=== PATIENT | female | born 1950 | race Caucasian/White ===

== ENCOUNTER 2017-10-02 18:40 | Emergency (ER) | payer MEDICARE, OTHER, SELFPAY ==
[2017-10-02 18:41] VITALS: BP 152/75; PULSE 67; RESP 15; TEMP 36.8; O2SAT 97; BMI 28.3
--- NOTE | 2017-10-02 19:59 | ED.DCSUM_ITS ---
- ER Visit Summary Date of Service: 10/02/17 Chief Complaint: [Laceration left index finger] History of Present Illness: The patient is a 67 F [presents to the emergency department with a laceration to her left index finger that occurred while trying to cut an onion prior to arrival in the emergency department. Patient is right-hand dominant. Patient is up-to-date on tetanus.] Physical Examination: [Left index finger-there is a 1.2 cm laceration along the lateral edge of the distal phalanx adjacent to the nail but does not seem to involve the nail. Patient neurovascularly intact. Normal sensation and cap refill.] Test Results: [None indicated] Emergency Department Course and Treatment: [Laceration repair-wound sterilely draped and prepped. Using 1% lidocaine total 6 cc used to perform a digital block. Patient had good anesthesia with this. Wound irrigated with saline and cleansed with Shur-Clens. Using 5-0 nylon a total of 3 single interrupted sutures placed with good wound edge approximation.] Treatment Plan: [Patient to follow-up in 10 days for suture removal] Disposition: [Discharged home in stable condition. Patient advised to return if increasing pain, redness, swelling, purulent drainage, or condition should worsen in any way.] Impression: [Laceration left index finger 1.2 cm-simple repair] This note was generated with [employer] dictation software. It may contain incorrect words, spelling, and punctuation that were not noted in review of the chart prior to signing ED Disposition - Plan for ED Patient: Chief Complaint: Laceration Referrals: Garrick Benson MD [Primary Care Provider] -
--- NOTE | 2017-10-02 19:59 | ED.DEP ---
ED Disposition - Plan for ED Patient: Chief Complaint: Laceration Instructions: ED Laceration Hand Referrals: Garirck Benson MD [Primary Care Provider] - 10 Day for suture removal
== END 2017-10-02 20:09 | disposition home or self-care (01) ==
LOC: ED 19:10
PROVIDERS: Emergency Provider Emergency Medicine; Family Provider Family Medicine; PCP Family Medicine
DX: S61.211A Laceration without foreign body of left index finger without damage to nail, initial encounter (principal); W26.0XXA Contact with knife, initial encounter; Y93.9 Activity, unspecified; Y92.9 Unspecified place or not applicable; Y99.9 Unspecified external cause status; E78.00 Pure hypercholesterolemia, unspecified; E11.9 Type 2 diabetes mellitus without complications; I10 Essential (primary) hypertension
CPT/HCPCS: 12001; 99284

== ENCOUNTER → 2017-12-26 10:52 | Outpatient (CLI) | payer MEDICARE, OTHER, SELFPAY ==
[2017-12-26 13:25] LABS: Hemoglobin A1c 8.3 % (4.2-6.3)
== END ==
PROVIDERS: Family Provider Family Medicine; PCP Family Medicine; Visit Provider Family Medicine
DX: E11.9 Type 2 diabetes mellitus without complications (principal)
CPT/HCPCS: 36415; 83036

== ENCOUNTER 2018-01-13 07:42 | Emergency (ER) | payer MEDICARE, OTHER, SELFPAY ==
[2018-01-13 07:43] VITALS: BP 138/82; PULSE 74; RESP 17; TEMP 36.8; O2SAT 96; BMI 28.3
--- NOTE | 2018-01-13 07:56 | RAD_ITS ---
STUDY: X-RAY - RIGHT FOOT CLINICAL: Female, 67 years old. Lateral pain and swelling TECHNIQUE: 3 view(s) of the foot. COMPARISON: Right ankle films, same date FINDINGS: Normal talus, calcaneus, and tarsal bones. Normal visualized subtalar, talonavicular, calcaneocuboid, tarsal and tarsometatarsal articulations. Normal metatarsi. Normal metatarsophalangeal joint of the great toe. Normal tibial and fibular sesamoid bones. Normal interphalangeal joint of the great toe. Normal phalanges of the great toe. Normal second through fifth metatarsophalangeal joints. Normal interphalangeal joints and phalanges of the lesser toes. There is lateral soft tissue swelling. The distal fibular fracture is not well seen on the foot films, better demonstrated on the ankle films. RAD/Foot min 3 Views IMPRESSION: Lateral soft tissue swelling. The known distal fibular fracture is better seen on the ankle films. Electronically Signed: Ramesh Stone DO at 8:32 EDT Tel , Service support ,
--- NOTE | 2018-01-13 07:56 | CT_ITS ---
STUDY: CT BRAIN WITHOUT CONTRAST REASON FOR EXAM: Female, 67 years old. Trauma, bump to the right posterior head RADIATION DOSAGE (If Supplied By Facility): CTDIvol = ( 44.99 ) mGy, DLP = ( 779.24 ) mGycm TECHNIQUE: Transaxial CT imaging of the brain was performed without administration of intravenous contrast material. Sagittal and coronal reconstructed images are provided and reviewed. Individualized dose optimization techniques were used for this CT. COMPARISON: None. FINDINGS: Normal soft tissue structures. Normal calvarium. Normal size ventricles and extra-axial spaces for the patient's age. Normal white matter tracts of the cerebral hemispheres. Normal basal ganglia and thalami. Normal brainstem. Normal cerebellum. There is no intracranial hemorrhage. There are no findings of an acute ischemic infarction. Normal visualized paranasal sinuses. CT/Brain/Head without Contrast IMPRESSION: Normal unenhanced CT scan of the brain. Electronically Signed: Ramesh Stone DO at 8:37 EDT Tel , Service support ,
--- NOTE | 2018-01-13 07:57 | ED.VISSUMM ---
- ER Visit Summary Date of Service: 01/13/18 Chief Complaint: Fall History of Present Illness: The patient is a 67 F presenting after fall. Patient was stepping down off a train and missed a step. She fell to the ground hitting her head. She has right ankle pain and swelling. She did not lose consciousness. She has had no dizziness or vomiting. She denies neck pain. She has pain in her right ankle with ambulation. Denies other complaints. Physical Examination: Vitals are stable. Patient is afebrile. Alert no acute distress. HEENT exam posterior scalp hematoma Neck is nontender Lungs are clear and equal bilaterally. Heart is regular rate and rhythm. Abdomen is soft nontender nondistended. Extremities right lateral ankle swelling and tenderness. Skin is warm and dry. No focal neurologic deficit. Remainder of exam is unremarkable. Emergency Department Course and Treatment: Ice pack was applied. Right ankle and foot x-ray shows nondisplaced distal fibular fracture. CT head shows no acute process. She was given a boot orthosis and crutches. She has a walker at home and declines a wheelchair. She has family at home to help her. Advised non weight bearing. Advised to ice and elevate. Advised to follow up with Dr Styles, orthopedics. Patient declines pain medications. Advised to return to the ED for worsening complaints. Disposition: Discharge home Impression: Right distal fibula fracture, closed head injury, s/p mechanical fall This note was generated with [employer] dictation software. It may contain incorrect words, spelling, and punctuation that were not noted in review of the chart prior to signing ED Disposition - Plan for ED Patient: Disposition: Home or Assisted Living Chief Complaint: Fall Instructions: ED Mechanical Fall, ED Fx Ankle Lateral Malleolus Referrals: Garrick Benson DO [Primary Care Provider] - Selvin Styles DO [STAFF PHYSICIAN] -
--- NOTE | 2018-01-13 08:11 | RAD_ITS ---
STUDY: X-RAY - RIGHT ANKLE REASON FOR EXAM: Female, 67 years old. Trauma, status post fall with pain TECHNIQUE: 3 view(s) of the ankle. COMPARISON: Right foot films, same date FINDINGS: There is a nondisplaced fracture of the distal fibula. The distal tibia is intact. Normal tibiotalar articulation and ankle mortise. Normal visualized talus and calcaneus. The visualized subtalar, talonavicular, calcaneocuboid and tarsal articulations are normal. There is lateral soft tissue swelling and a joint effusion. RAD/Ankle min 3 Views IMPRESSION: Nondisplaced distal fibular fracture. Electronically Signed: Ramesh Stone DO at 8:28 EDT Tel , Service support ,
--- NOTE | 2018-01-13 08:45 | ED.DEP ---
ED Disposition - Plan for ED Patient: Chief Complaint: Fall Instructions: ED Mechanical Fall, ED Fx Ankle Lateral Malleolus Referrals: Garrick Benson DO [Primary Care Provider] - Selvin Styles DO [STAFF PHYSICIAN] -
[2018-01-13 09:06] VITALS: BP 173/102; PULSE 70; RESP 18
== END 2018-01-13 09:07 | disposition home or self-care (01) ==
PROVIDERS: Emergency Provider Emergency Medicine; Family Provider Family Medicine; PCP Family Medicine
DX: S82.831A Other fracture of upper and lower end of right fibula, initial encounter for closed fracture (principal); S09.90XA Unspecified injury of head, initial encounter; W10.8XXA Fall (on) (from) other stairs and steps, initial encounter; Y93.9 Activity, unspecified; Y92.522 Railway station as the place of occurrence of the external cause; Y99.8 Other external cause status; E11.9 Type 2 diabetes mellitus without complications; I10 Essential (primary) hypertension; E78.00 Pure hypercholesterolemia, unspecified; F41.9 Anxiety disorder, unspecified; K58.9 Irritable bowel syndrome, unspecified
CPT/HCPCS: 70450; 73610; 73630; 99284

== ENCOUNTER → 2018-03-19 10:29 | Outpatient (CLI) | payer MEDICARE, OTHER, SELFPAY ==
[2018-03-19 11:43] LABS: Hemoglobin A1c 8.2 % (4.2-6.3)
[2018-03-19 11:51] LABS: ALB/GLOB Ratio 1.2 RATIO (0.9-2.4); AST(SGOT) 23 U/L (15-37); Alanine Aminotransfer ALT/SGPT 19 U/L (13-56); Albumin, Serum 4.1 g/dL (3.2-5.0); Alkaline Phosphatase 88 U/L (45-117); Anion Gap 10 (5-15); BUN 13 mg/dL (7-18); BUN/Creat Ratio 17.2 RATIO (10-20); Chloride 107 mmol/L (98-107); Cholesterol 171 mg/dL (200); Creatinine, Serum 0.76 mg/dL (0.55-1.02); EST Glomerular Filtration Rate 81 mL/min (>60); Est Glom Filt Rate - Afr Amer 98 mL/min (>60); Globulin 3.3 g/dL (2.2-4.2); Glucose 210 mg/dL (74-106); High Density Lipoprotein 51 mg/dL; Potassium 4.2 mmol/L (3.5-5.1); Protein, Total 7.4 g/dL (6.4-8.2); Sodium Level 145 mmol/L (136-145); Triglycerides 183 mg/dL; Very Low Density Lipoprotein 37 mg/dL (5-40)
== END ==
PROVIDERS: Family Provider Family Medicine; PCP Family Medicine; Visit Provider Family Medicine
DX: E78.5 Hyperlipidemia, unspecified (principal); E11.9 Type 2 diabetes mellitus without complications
CPT/HCPCS: 36415; 80053; 80061; 83036

== ENCOUNTER 2018-06-12 22:02 | Emergency (ER) | payer MEDICARE, OTHER, SELFPAY ==
[2018-06-12 22:03] VITALS: BP 108/64; PULSE 81; RESP 16; TEMP 37; O2SAT 98; BMI 28.3
--- NOTE | 2018-06-13 00:10 | RAD_ITS ---
STUDY: X-RAY CHEST REASON FOR EXAM: Female, 67 years old. Cough TECHNIQUE: 2 views COMPARISON: None. FINDINGS: The lungs are clear and expanded. There is no demonstrated pleural abnormality. Normal size heart. Normal mediastinum and anisha. Normal visualized pulmonary arteries. Normal visualized aortic arch and descending thoracic aorta. Normal visualized thoracic spine. Normal visualized ribs, clavicles, and shoulders. There is no demonstrated abnormality of the visualized soft tissue structures of the upper abdomen. RAD/Chest PA and Lateral IMPRESSION: Small 3 mm calcified granulomata in both lower lobes. No acute findings in the lungs Electronically Signed: Edu Obrien MD at 0:37 EDT Tel , Service support ,
[2018-06-13] MEDS: Ondansetron 4 MG/2 ML Vial IV (00:12)
[2018-06-13] MEDS: 0.9% Normal Saline 1,000 ML 150 ML IV (00:34)
[2018-06-13 00:46] LABS: Absolute Neutrophil Count 6.3 X10^3/uL (2.0-7.7); Basophil% 0.1 % (0-1); Hematocrit 37.7 % (37-47); Hemoglobin 12.4 g/dl (12.0-15.0); Lymphocyte # 0.86 X10^3/ul (4.0); Mean Corp Hgb Conc 32.9 g/gl (32-36); Mean Corpuscular Hgb 28.6 pg (27.0-32.0); Mean Corpuscular Volume 86.9 fL (81-99); Mean Platelet Vol. 9.6 fl (6.2-12.0); Monocyte% 8.8 % (0-10); Neutrophil # 6.26 X10^3/uL (2.7-7.7); POSITIVE COUNT NO; POSITIVE DIFFERENTIAL NO; POSITIVE MORPHOLOGY NO; Platelet Count 189 K/mm3 (150-450); RBC Distribution Width CV 13.4 % (11.6-14.6); RBC Distribution Width SD 41.7 fl (35.1-43.9); Red Blood Count 4.34 M/mm3 (4.2-5.4); White Blood Count 7.8 K/mm3 (4.4-11.0)
[2018-06-13 00:47] LABS: Absolute Lymphocyte Count 0.86 X10^3/ul (0.83-4.51); Monocyte# 0.69 X10^3/uL
[2018-06-13 00:54] LABS: Anion Gap 13 (5-15); BUN 20 mg/dL (7-18); BUN/Creat Ratio 22.5 RATIO (10-20); Calcium,Total 8.4 mg/dL (8.5-10.1); Chloride 102 mmol/L (98-107); Creatinine, Serum 0.89 mg/dL (0.55-1.02); EST Glomerular Filtration Rate 67 mL/min (>60); Est Glom Filt Rate - Afr Amer 81 mL/min (>60); Estimated Creatinine Clearance 50.74 ml/min; Glucose 235 mg/dL (74-106); Potassium 4.6 mmol/L (3.5-5.1); Sodium Level 135 mmol/L (136-145)
[2018-06-13] MEDS: Acetaminophen 325 MG Tablet 650 MG PO (01:20)
[2018-06-13] MEDS: Dicyclomine 10 MG Capsule 20 MG PO (01:20)
[2018-06-13 01:22] VITALS: BP 107/56; PULSE 79; RESP 17; O2SAT 93
--- NOTE | 2018-06-13 02:02 | ED.VISSUMM ---
- ER Visit Summary Date of Service: 06/13/18 Chief Complaint: Nausea and vomiting History of Present Illness: The patient is a 67 F who woke yesterday morning with congestion and sore throat. She did not really eat much all day. She was nauseated whenever she would smell food. She woke today with body aches, sedated fever and chills. She went to the [facility] clinic and was told she had a sinus infection. She was not given antibiotics. She reportedly had a rapid flu test that was negative. Tonight she states she did vomit up her toes that she had eaten at noon and there was some blood streaks noted. She denies diarrhea. Physical Examination: Vital signs are unremarkable. Patient is sitting upright in bed. She appears ill but not toxic. Head neck examination reveals TMs to be clear. She has mild posterior pharyngeal drainage. Heart is regular rate and rhythm. Lung sounds are clear. Abdomen is soft with minimal tenderness in the right lower quadrant. No guarding or rebound. Hypoactive bowel sounds are noted throughout. Test Results: Two-view chest x-ray shows small calcified granulomata at both lower lobes. No acute findings. CBC was normal white count but she does have a slight left shift with 80% neutrophils. Chemistry studies reveal a sodium of 135 and a bicarb of 20. Her glucose is 235. Emergency Department Course and Treatment: Patient is given IV fluids along with Zofran. On repeat evaluation she was complaining of mild headache along with some abdominal cramping. She was given a dose of Bentyl and Tylenol p.o. On repeat exam she still has mild headache. She is requesting to go home at this time. I discussed viral syndrome with her as I believe this is the cause of her current illness. She will be given Zofran for home and encouraged to increase fluids to maintain hydration. Treatment Plan: [] Disposition: Discharge Impression: Viral syndrome This note was generated with [employer] dictation software. It may contain incorrect words, spelling, and punctuation that were not noted in review of the chart prior to signing ED Disposition - Plan for ED Patient: Chief Complaint: Nausea/Vomiting Referrals: Garrick Benson, [Primary Care Provider] -
--- NOTE | 2018-06-13 02:04 | ED.DEP ---
ED Disposition - Plan for ED Patient: Disposition: Home or Assisted Living Chief Complaint: Nausea/Vomiting Instructions: ED Viral Syndrome Prescriptions: Ondansetron [Zofran Odt] 4 mg PO Q8H PRN PRN #10 tablet PRN Reason: Nausea Referrals: Garrick Benson DO [Primary Care Provider] - 5-7 Days
[2018-06-13] MEDS: Ondansetron ODT 4 MG Tablet PO (02:22)
[2018-06-13 02:23] VITALS: BP 96/44; PULSE 66; RESP 17; O2SAT 97
== END 2018-06-13 02:24 | disposition home or self-care (01) ==
PROVIDERS: Emergency Provider Emergency Medicine; Family Provider Family Medicine; PCP Family Medicine
DX: B34.9 Viral infection, unspecified (principal); R68.83 Chills (without fever); J02.9 Acute pharyngitis, unspecified; R05 Cough; R11.2 Nausea with vomiting, unspecified; R51 Headache; R09.81 Nasal congestion; R10.813 Right lower quadrant abdominal tenderness; E11.9 Type 2 diabetes mellitus without complications; I10 Essential (primary) hypertension; E78.00 Pure hypercholesterolemia, unspecified; K58.9 Irritable bowel syndrome, unspecified; Z79.82 Long term (current) use of aspirin; Z79.84 Long term (current) use of oral hypoglycemic drugs; Z79.899 Other long term (current) drug therapy
CPT/HCPCS: 71046; 80048; 85025; 96361; 96374; 99285; J7030; J7040; A4216; J2405

== ENCOUNTER → 2018-06-14 10:48 | Outpatient (CLI) | payer MEDICARE, OTHER, SELFPAY ==
[2018-06-14 11:20] LABS: Hemoglobin A1c 7.7 % (4.2-6.3)
== END ==
PROVIDERS: Family Provider Family Medicine; PCP Family Medicine; Referring Provider Family Medicine; Visit Provider Family Medicine
DX: E11.9 Type 2 diabetes mellitus without complications (principal)
CPT/HCPCS: 36415; 83036

== ENCOUNTER → 2018-12-05 11:41 | Outpatient (CLI) | payer MEDICARE, OTHER, SELFPAY ==
[2018-12-05 11:02] VITALS: BMI 27.8
[2018-12-05 13:33] LABS: Hemoglobin A1c 7.9 % (4.2-6.3)
== END ==
PROVIDERS: Family Provider Family Medicine; PCP Family Medicine; Visit Provider Family Medicine
DX: E11.9 Type 2 diabetes mellitus without complications (principal)
CPT/HCPCS: 36415; 83036

== ENCOUNTER → 2018-12-12 09:09 | Outpatient (CLI) | payer MEDICARE, OTHER, SELFPAY ==
[2018-12-05 11:02] VITALS: BMI 27.8
--- NOTE | 2018-12-12 09:11 | MRI_ITS ---
STUDY: MRI BRAIN WITH AND WITHOUT CONTRAST REASON FOR EXAM: Female, 68 years old. Tremor and falls TECHNIQUE: Standardized multiplanar fat and water weighted pulse sequences were obtained. 14 IV Dotarem was administered for the contrast portion of the examination. COMPARISON: CT 01/13/2018 FINDINGS: Normal size of the ventricles and extra-axial spaces for the patient's age. There are a limited number of small white matter hyperintensities, distributed throughout the deep white matter tracts of the cerebral hemispheres, consistent with mild chronic white matter ischemic changes. Normal bilateral basal ganglia. Normal thalami. There is no extra-axial fluid accumulation. Normal flow voids within the major intracranial circulation suggesting patency by spin echo criteria. Normal venous enhancement. There is no enhancing intra-axial or extra-axial abnormality. Normal sella turcica, pituitary gland, infundibular stalk, optic chiasm and hypothalamus. Normal tectal plate and pineal gland. Normal midbrain, barry and medulla. Normal cerebellum. Normal basal cisterns. Normal bilateral temporal bones. Normal bilateral internal auditory canals. No demonstrated orbital abnormality, within the constraints of a routine brain study. Normal visualized paranasal sinuses. Right mastoid sinus disease. Normal visualized soft tissue structures. Normal visualized upper cervical spine. MRI/Brain W/WO Contrast IMPRESSION: No evidence of infarct, hemorrhage, mass, or abnormal enhancement. Mild microangiopathic white matter disease. Electronically Signed: Brian Acosta MD at 11:08 EDT Tel , Service support ,
[2018-12-12 09:36] LABS: CREATININE FINGERSTICK 0.9 mg/dL (0.55-1.02); EGFR FINGERSTICK > 60.0000 mL/min (>60)
== END ==
PROVIDERS: Family Provider Family Medicine; PCP Family Medicine; Referring Provider Family Medicine; Visit Provider Family Medicine
DX: R25.1 Tremor, unspecified (principal); G96.9 Disorder of central nervous system, unspecified; Z01.812 Encounter for preprocedural laboratory examination
CPT/HCPCS: 70553; A9575

== ENCOUNTER → 2019-01-15 10:41 | Outpatient (CLI) | payer MEDICARE, OTHER, SELFPAY ==
[2019-01-09 13:49] VITALS: BMI 27.8
[2019-01-15 11:33] LABS: Erythrocyte Sedimentation Rate 3 mm/hr (0-30)
[2019-01-15 11:38] LABS: Absolute Neutrophil Count 2.3 X10^3/uL (2.0-7.7); Basophil# 0.01 X10^3/uL; Basophil% 0.3 % (0-1); Eosinophil# 0.12 X10^3/uL; Eosinophils% 3.1 % (0-5); Hemoglobin 14.7 g/dl (12.0-15.0); Lymphocyte % 31.5 % (19-41); Mean Corp Hgb Conc 33.4 g/gl (32-36); Mean Corpuscular Hgb 27.8 pg (27.0-32.0); Mean Corpuscular Volume 83.3 fL (81-99); Mean Platelet Vol. 9.8 fl (6.2-12.0); Monocyte# 0.22 X10^3/uL; Monocyte% 5.8 % (0-10); Neutrophil # 2.25 X10^3/uL (2.7-7.7); Platelet Count 194 K/mm3 (150-450); RBC Distribution Width CV 13.6 % (11.6-14.6); RBC Distribution Width SD 41.3 fl (35.1-43.9); Red Blood Count 5.28 M/mm3 (4.2-5.4); White Blood Count 3.8 K/mm3 (4.4-11.0)
[2019-01-15 11:40] LABS: POSITIVE COUNT NO; POSITIVE DIFFERENTIAL NO; POSITIVE MORPHOLOGY NO
[2019-01-15 11:59] LABS: Homocysteine 10.5 umol/L (3.2-10.7)
[2019-01-15 12:00] LABS: Vitamin B12 348 pg/mL (211-911)
[2019-01-15 12:36] LABS: ALB/GLOB Ratio 1.3 RATIO (0.9-2.4); AST(SGOT) 25 U/L (15-37); Alanine Aminotransfer ALT/SGPT 25 U/L (13-56); Albumin, Serum 4.1 g/dL (3.2-5.0); Alkaline Phosphatase 94 U/L (45-117); Anion Gap 10 (5-15); BUN 13 mg/dL (7-18); BUN/Creat Ratio 17.3 RATIO (10-20); Calcium,Total 8.7 mg/dL (8.5-10.1); Chloride 106 mmol/L (98-107); Creatinine, Serum 0.75 mg/dL (0.55-1.02); EST Glomerular Filtration Rate 81 mL/min (>60); Est Glom Filt Rate - Afr Amer 98 mL/min (>60); Globulin 3.2 g/dL (2.2-4.2); Glucose 231 mg/dL (74-106); Potassium 4.2 mmol/L (3.5-5.1); Protein, Total 7.3 g/dL (6.4-8.2); Rheumatoid Factor < 10.0 IU/mL (<15); Sodium Level 141 mmol/L (136-145); T4 Free Direct 1.11 ng/dL (0.76-1.46); T4 Total, Thyroxin 9.9 ug/dL (4.8-13.9); Thyroid Stim Hormone (TSH) 1.21 uIU/mL (0.358-3.74); Uric Acid 3.6 mg/dL (2.6-6.0)
[2019-01-21 11:54] LABS: ANTINUCLEAR ANTIBODIES DIRECT NEGATIVE
[2019-01-21 11:56] LABS: Methylmalonic Acid Bld 512
== END ==
PROVIDERS: Family Provider Family Medicine; PCP Family Medicine; Referring Provider Psychiatry & Neurology Neurology; Visit Provider Psychiatry & Neurology Neurology
DX: R41.3 Other amnesia (principal); R44.3 Hallucinations, unspecified; Z68.27 Body mass index [BMI] 27.0-27.9, adult
CPT/HCPCS: 36415; 80053; 82607; 82746; 83090; 83921; 84436; 84439; 84443; 84550; 85025; 85652; 86038; 86431

== ENCOUNTER 2019-04-11 20:26 | Emergency (ER) | payer MEDICARE, OTHER, SELFPAY ==
[2019-03-05 11:22] VITALS: BMI 27.8
[2019-04-11 20:27] VITALS: BP 146/68; PULSE 88; RESP 19; TEMP 36.6; O2SAT 98; BMI 28.3
--- NOTE | 2019-04-11 21:05 | ED.VIS.BACK ---
History of Present Illness Chief Complaint: Back Informant: Patient Onset: Days Context: Sudden Onset Injury: - - There is no history of lifting or trauma Timing: Continuous Quality: Dull, Aching Location: Lumbar, Buttock, Right Leg, Left Leg Current Severity: Mild Maximum Severity: Severe Worsened by: improves with: Movement, Ambulation, Bending, Lifting. worse with: Night time pain Relieved by: Nothing Associated Symptoms: Radiation to Right Leg, Radiation to Left Leg, - - There is no numbness, tingling, fever or chills, night sweats, weight loss or weight gain, bowel or bladder dysfunction, there is no saddle paresthesia or anesthesia. She denies foot drop. She has no steps. He prefers to sit versus standing Narrative: Patient is a 68-year-old woman who presents with central low back pain that started 1 week ago. She has no constitutional symptoms. She has no neurovascular symptoms. She denies bowel or bladder dysfunction. There are no steps at her house to determine if her knee sean going up or down steps. 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 (4) Type 2 diabetes mellitus Status: Chronic Past Medical History - Allergies and Home Meds Allergies/Adverse Reactions: Allergies No Known Allergies Allergy (Verified 04/11/19 20:28) Primary Care Physician: Garrick Benson DO [Primary Care Provider] - Prior records reviewed: Yes Surgical History: noncontributory Lives: Spouse/ Significant Other Smoking Status: Never smoker Alcohol: None Drugs: None Review of Systems General: Denies: Chills, Fever, Sweats Eyes: Denies: Visual changes - bilaterally, Diplopia ENT: Denies: Rhinorrhea, Sore throat Cardiovascular: Denies: Chest pain, Palpitations Respiratory: Denies: Dyspnea, Cough, Dyspnea on exertion Gastrointestinal: Denies: Abdominal pain, Nausea, Vomiting, Diarrhea, Melena, Hematochezia Genitourinary: Denies: Dysuria, Hematuria, Frequency Musculoskeletal: Reports: Back pain, Extremity Pain. Denies: Myalgias, Arthralgias, Neck pain, Swelling, -, - - He does report pain radiating anteriorly right and left lower extremity and posteriorly to the popliteal fossa bilaterally. Skin: Denies: Rash, Wounds Neurological: Denies: Headache, Weakness, Parasthesia, Numbness Endocrine: Denies: Polyuria, Polydipsia Hematologic: Denies: Easy bruising, Easy bleeding Allergy: Denies: Uticaria, Swelling of the mouth, Swelling of the tongue Physical Exam Vital Signs/Narrative: Vital Signs Temp Pulse Resp BP Pulse Ox 04/11/19 20:27 97.9 F 88 19 H 146/68 H 98 Inital Vital Signs reviewed: Yes General: Well nourished, Well developed Head: Normocephalic, Atraumatic Eyes: Perrl, EOMI ENT: Moist mucous membranes, No rhinorrhea Neck: Supple, Nontender Cardiovascular: Regular rate, Regular rhythm, No murmurs Respiratory: No distress, CTA bilaterally, Chest nontender Abdomen: Soft, Nontender, Nondistended, Normal bowel sounds, No masses. Negative for: Hepatomegaly, Splenomegaly Back: Normal Inspection, Nontender, Spinal tenderness, Negative SLR - Right, Negative SLR - Left. Negative for: Paraspinal Tenderness, CVA tenderness, Positive SLR - Right, Positive SLR - Left Extremeties: Nontender, No edema, Strong Pulses, Symmetric. Negative for: Tenderness, Edema Skin: Normal color, No rash, No Trauma. Negative for: Cyanosis, Diaphoresis, Jaundice Neuro: Alert, Oriented, Normal Strength, Normal Sensation, Normal DTR, Normal Gait, Normal Reflexes, Normal Cerebellar, - - Gait observed. There is no foot drop. She is able to walk on her heels and toes. She has normal sensation lateral, central and medial side of the right and left foot. She is able to perform a one leg squat right and left. Psychological: Normal affect Diagnostic/Tx/Re-eval X-Ray: LS SPine - Review x-ray was reviewed by me. Radiologist read no acute process. Agree. There may be evidence of abnormality of anterior plate L3. - Medical Decision Making He was established he was treated with 4 mg of morphine IV push. X-ray of the LS-spine was obtained. She was reevaluated at 2230. She reports improvement of her pain. She was told her x-ray is unremarkable. She was instructed to follow-up with her doctor. ED Disposition - Plan for ED Patient: Disposition: Home or Assisted Living Diagnosis: Bilateral low back pain without sciatica Instructions: BACK AND NECK PAIN, General Prescriptions: Hydrocodone Bitart/Apap 5-325 [[place] 5MG-325MG] 1 tab PO Q6H PRN PRN 3 Days #10 tab PRN Reason: Pain Prescription Printed Referrals: Garrick Benson DO [Primary Care Provider] - 3-5 Days
[2019-04-11] MEDS: Ondansetron 4 MG/2 ML Vial IV (21:12)
[2019-04-11] MEDS: Morphine 4 MG/ML Syringe IV (21:13)
--- NOTE | 2019-04-11 21:18 | RAD_ITS ---
STUDY: X-RAY - LUMBAR SPINE REASON FOR EXAM: Female, 68 years old. Trauma TECHNIQUE: 3 view(s) of the lumbar spine were obtained. COMPARISON: None FINDINGS: Normal lumbar lordosis. There is no substantial scoliosis. There is a normal alignment of the vertebrae. No evidence for acute fracture or subluxation. Probable old trauma to the anterior superior endplate of L3. Disc space heights are well-maintained although there is very mild multilevel endplate spurring. The soft tissue structures are unremarkable. RAD/Lumbar Spine 2 or 3 Views IMPRESSION: Mild spondylosis.. No evidence for acute fracture or subluxation. Probable old posttraumatic deformity of anterior superior endplate of L3 Electronically Signed: Rajiv Kaplan MD at 21:36 EDT , Service support ,
[2019-04-11 22:46] VITALS: BP 133/72; PULSE 81; RESP 16; O2SAT 99
== END 2019-04-11 22:48 | disposition home or self-care (01) ==
PROVIDERS: Emergency Provider Emergency Medicine; Family Provider Family Medicine; PCP Family Medicine
DX: M54.5 Low back pain (principal); E11.9 Type 2 diabetes mellitus without complications; I10 Essential (primary) hypertension; E78.5 Hyperlipidemia, unspecified; G96.9 Disorder of central nervous system, unspecified
CPT/HCPCS: 72100; 99282; J2405

== ENCOUNTER → 2019-06-05 11:28 | Outpatient (CLI) | payer MEDICARE, OTHER, SELFPAY ==
[2019-06-05 10:40] VITALS: BMI 27.3
--- NOTE | 2019-06-05 11:55 | EKG12_ITS ---
Test Reason : PRE OP Blood Pressure : / mmHG Vent. Rate : 057 BPM Atrial Rate : 057 BPM P-R Int : 148 ms QRS Dur : 090 ms QT Int : 454 ms P-R-T Axes : 046 090 077 degrees QTc Int : 441 ms Sinus bradycardia Rightward axis Borderline ECG Confirmed by PATEL ROLLINS, SEAN ([id number]), metropolitan editor TIM ALY ([id number] on 06/07/2019 11:02:43 AM Referred By: Garrick Benson Confirmed By:SEAN SWEENEY MD
[2019-06-05 13:35] LABS: ALB/GLOB Ratio 1.2 RATIO (0.9-2.4); AST(SGOT) 17 U/L (15-37); Alanine Aminotransfer ALT/SGPT 19 U/L (13-56); Alkaline Phosphatase 83 U/L (45-117); Anion Gap 8 (5-15); BUN 16 mg/dL (7-18); BUN/Creat Ratio 21.9 RATIO (10-20); Chloride 109 mmol/L (98-107); Cholesterol 143 mg/dL (200); Creatinine, Serum 0.73 mg/dL (0.55-1.02); EST Glomerular Filtration Rate 84 mL/min (>60); Est Glom Filt Rate - Afr Amer 102 mL/min (>60); Globulin 3.2 g/dL (2.2-4.2); Glucose 161 mg/dL (74-106); High Density Lipoprotein 47 mg/dL; Potassium 4.1 mmol/L (3.5-5.1); Protein, Total 7.2 g/dL (6.4-8.2); Sodium Level 143 mmol/L (136-145); Triglycerides 114 mg/dL; Very Low Density Lipoprotein 23 mg/dL (5-40)
== END ==
PROVIDERS: Family Provider Family Medicine; PCP Family Medicine; Referring Provider Family Medicine; Visit Provider Family Medicine
DX: E11.9 Type 2 diabetes mellitus without complications (principal); I10 Essential (primary) hypertension
CPT/HCPCS: 36415; 80053; 80061; 93005

== ENCOUNTER 2019-06-21 12:00 | Outpatient (RCR) | payer MEDICARE, OTHER, SELFPAY ==
[2019-04-17 14:03] VITALS: BMI 28.3
--- NOTE | 2019-04-30 12:05 | HP.PTEVAL ---
Patient's Visit Information ELISA HAN is a 68 year old F referred to Physical Therapy by Gerson Bourgeois NP-C with a diagnosis of LOW BACK PAIN. Date of Evaluation: 04/30/19 Physical Therapist: Melchor Morgan, PT, Cert MDT, OCS - Visit Plan Frequency: 2x /Week Duration: 4 Weeks Plan: PT INTERVENTIONS DLS -ABD/BACK (NEUTRAL POSTION) ,POSTURAL EX'S,MODALTIES - Subjective Findings: This 68 y/o female presents to physical therapy with LBP. Patient has back pain for 5 years. Patient recently 3weeks hockey cold and sitting on bleachers. Next day pain alot of pain . Pateint waited one week before seen ER [facility] x-rays did. Patient seen [facility] recommended PT. Patient pain is located right LB with radicular symptoms hamstrings. Aggravating sitting,standing ,walking ,bending ,lifting. Alleviating factors rest,heat. Parathesia/tingling right leg. Coughing/sneezing -. Bowel/bladder good. Sleeping okay at night. But has has sleep apnea. Patient pain affects housework tasks and ADL's. Symptoms afffects QOL. Patient does have h/o falling. SOCIAL: . VOCATION: retired - Pain Bilateral Back Pain Intensity (Out of 10): 5 Pain Intensity Range: 10 Right Lower Extremity Pain Intensity (Out of 10): 5 Pain Intensity Range: 10 Comment: hamstrings - Objective POSTURE: mild thoracic kyphosis. GAIT: reciprocal pattern. NEURO: denies parathesia/tingling ,reflexes L3-4,L4-5,L5-S1 2/3. SYMMTICAL: align. PALPATION: unremarkable. MMT: quads/hams/hip flexion 4/5,ankle 4/5. LUMBAR ROM: flexion min,extension min loss,side glides min min loss. FLEXABLITY: hams min tight - Special Tests L/S Slump test left side: Negative L/S Slump test right side: Negative L/S Left Straight Leg Raise: Negative L/S Right Straight Leg Raise: Negative Lumbar Standing: Flexion - Mechanical Response: No effect Lumbar Standing: Flexion - Symptoms During Testing: Increases Lumbar Standing: Flexion - Symptoms After Testing: Worse Lumbar Standing: Extension - Mechanical Response: No effect Lumbar Standing: Extension - Symptoms During Testing: Decreases Lumbar Standing: Extension - Symptoms After Testing: No effect Lumbar Standing: Right Side Glides - Mechanical Response: No effect Lumbar Standing: Right Side Scuddy - Symptoms During Testing: No effect Lumbar Standing: Right Side Scuddy - Symptoms After Testing: No effect Lumbar Standing: Left Side Scuddy - Mechanical Response: No effect Lumbar Standing: Left Side Scuddy - Symptoms During Testing: No effect Lumbar Standing: Left Side Scuddy - Symptoms After Testing: No effect Lumbar Lying: Flexion - Mechanical Response: No effect Lumbar Lying: Flexion - Symptoms During Testing: Increases Lumbar Lying: Flexion - Symptoms After Testing: Worse Lumbar Lying: Extension - Mechanical Response: No effect Lumbar Lying: Extension - Symptoms During Testing: Increases Lumbar Lying: Extension - Symptoms After Testing: Worse - Goals Goal 1:: Patient to be Independant HEP. Goal Time Frame: 4-6 Weeks Goal 2:: Patient to improve posture for ADLS' Goal Time Frame: 4-6 Weeks Goal 3:: Decrease lumbar pain with radicular symptoms by 50% or greater to improve function Goal Time Frame: 4-6 Weeks Goal 4:: Patient to improve lumbar ROM for function of recovery Goal Time Frame: 4-6 Weeks Goal 5:: Patient to improve owestry dash score by 5 points > to improve QOL. Goal Time Frame: 4-6 Weeks - Rehabilitation Potential Physical Therapy Diagnosis: This patient has lumbar pain with radicular with possible disc involment with with pain with movement tests,sitting,bending impairs ADL'S and housework tasks thus benifit from skilled PT Rehabilitation Potential: Good - Anticipated Interventions Patient/Client Instruction: Educate patient on: Condition, Plan of Care For the Purpose of:: To decrease pain, To increase ROM, To improve muscle performance and motor function, To improve ability to perform ADL's, To increase tolerance to activity/condition/position, To improve performance and independence with ADL's, To improve ability of physical actions for home/community/work/leisure, To improve health of tissue, To decrease soft tissue restriction, To increase flexibility/ROM, To improve ability to perform tasks related to life management Therapeutic Exercise to Include: Strength training, Postural training, Flexibilty training, Dynamic Lumbar Stabilization For the Purpose of:: To decrease pain, To increase ROM, To improve muscle performance and motor function, To improve ability to perform ADL's, To increase tolerance to activity/condition/position, To improve ability of physical actions for home/community/work/leisure, To improve health of tissue, To decrease soft tissue restriction, To increase flexibility/ROM, To improve ability to perform tasks related to life management TENS: Yes IF ES: Yes Cryotherapy (ice pack, ice massage): Yes Thermo therapy (hot pack): Yes Ultrasound (thermal/non thermal): Yes For the Purpose of:: To decrease pain, To increase ROM, To improve health of tissue, To decrease soft tissue restriction Thank you for the opportunity to evaluate your patient. For Medicare and Medicare HMO plans, please review the plan of care and approve it. It will need to be FAXED BACK to us at [phone] for Medicare purposes. For Medicare only, by signing this I certify the plan of care. Please let me know if there are questions or concerns regarding this plan of care. Physician Signature: Date:
--- NOTE | 2019-06-06 15:25 | HP.PTREVAL ---
Gerson Bourgeois, GERALDINE-C, It has been my pleasure to treat ELISA HAN over the last 9 visits for LOW BACK PAIN. Please see the progress note below for an update on the physical therapy plan of care! Subjective: Doing better ,resume ex on home . Last couple treatment is hlping pain. Able to do ADL'S Objective/Function: POSTURE: mild foward posture ,mild kyphosis. GAIT: normal valencia. NEURO: intact. MMT: quads/hams 4/5 ,hip flexion 4-/5. LUMBAR ROM: flexion min loss ,extension min loss,side glides min loss Plan Plan: CONT WITH POC 2X/WEEK 2 WKS PT INTERVENTIONS DLS -ABD/BACK (NEUTRAL POSTION) ,POSTURAL EX'S,MODALTIES Goals Goal 1:: Patient to be Independant HEP. Goal Time Frame: 4-6 Weeks Goal Progress: Progressing Goal 2:: Patient to improve posture for ADLS' Goal Time Frame: 4-6 Weeks Goal Progress: Goal Met Goal 3:: Decrease lumbar pain with radicular symptoms by 60% or greater to improve function Goal Time Frame: 4-6 Weeks Goal Progress: Progressing Goal 4:: Patient to improve lumbar ROM for function of recovery Goal Time Frame: 4-6 Weeks Goal Progress: Progressing Goal 5:: Patient to improve owestry dash score by 5 points > to improve QOL. Goal Time Frame: 4-6 Weeks Goal Progress: Progressing Anticipated Interventions Patient/Client Instruction: Educate patient on: Condition, Plan of Care For the Purpose of:: To decrease pain, To increase ROM, To improve muscle performance and motor function, To improve ability to perform ADL's, To increase tolerance to activity/condition/position, To improve performance and independence with ADL's, To improve ability of physical actions for home/community/work/leisure, To improve health of tissue, To decrease soft tissue restriction, To increase flexibility/ROM, To improve ability to perform tasks related to life management Therapeutic Exercise to Include: Strength training, Postural training, Flexibilty training, Dynamic Lumbar Stabilization For the Purpose of:: To decrease pain, To increase ROM, To improve muscle performance and motor function, To improve ability to perform ADL's, To increase tolerance to activity/condition/position, To improve ability of physical actions for home/community/work/leisure, To improve health of tissue, To decrease soft tissue restriction, To increase flexibility/ROM, To improve ability to perform tasks related to life management TENS: Yes IF ES: Yes Cryotherapy (ice pack, ice massage): Yes Thermo therapy (hot pack): Yes Ultrasound (thermal/non thermal): Yes For the Purpose of:: To decrease pain, To increase ROM, To improve health of tissue, To decrease soft tissue restriction Please do not hesitate to contact me at [phone] by phone or if you have questions or concerns regarding this new plan of care! Sincerely, Melchor Morgan, PT, Cert MDT, OCS
--- NOTE | 2019-06-21 12:26 | HP.PTDCSUM ---
HP - PT D/C Summary It has been my pleasure to treat ELISA HAN under orders from Gerson Bourgeois NP-C, for the diagnosis of LOW BACK PAIN for a total of 13 visit(s). Discharge Date: 06/21/19 Please see the following information for a summary of their discharge status. - Subjective Subjective: Doing good..Able tpo do all adls' aand function at home - Pain Bilateral Back Pain Intensity (Out of 10): 1 Right Lower Extremity Pain Intensity (Out of 10): 0 - Overall Improvement % Improvement: 85 - Objective Objective/Function: Pt cont's to improve w/US use. Pain minimal today - Goals Goal 1:: Patient to be Independant HEP. Goal Progress: Goal Met Goal 2:: Patient to improve posture for ADLS' Goal Progress: Goal Met Goal 3:: Decrease lumbar pain with radicular symptoms by 60% or greater to improve function Goal Progress: Goal Met Goal 4:: Patient to improve lumbar ROM for function of recovery Goal Progress: Goal Met Goal 5:: Patient to improve owestry dash score by 5 points > to improve QOL. Goal Progress: Goal Met - Plan Plan: D/C TO HEP - D/C Information Discharge Comments: HEP ..MET GOALS If there are questions or concerns regarding this patient's physical therapy, please feel free to call me at [phone]. Thank you for the referral of this patient. Sincerely, Melchor Morgan, PT, Cert MDT, OCS
== END 2019-06-21 19:00 | disposition home or self-care (01) ==
LOC: PT 12:00
PROVIDERS: Family Provider Family Medicine; PCP Family Medicine; Referring Provider Nurse Practitioner Family; Visit Provider Nurse Practitioner Family
DX: M54.5 Low back pain (principal)
CPT/HCPCS: 97035; 97110; 97162; 97530

== ENCOUNTER → 2020-03-17 10:58 | Outpatient (CLI) | payer MEDICARE, OTHER, SELFPAY ==
[2020-03-17 10:40] VITALS: BMI 27.3
[2020-03-17 12:38] LABS: Anion Gap 4 (5-15); BUN 13 mg/dL (7-18); BUN/Creat Ratio 17.7 RATIO (10-20); Calcium,Total 8.7 mg/dL (8.5-10.1); Chloride 105 mmol/L (98-107); Cholesterol 148 mg/dL (200); Creatinine, Serum 0.73 mg/dL (0.55-1.02); EST Glomerular Filtration Rate 83 mL/min (>60); Est Glom Filt Rate - Afr Amer 101 mL/min (>60); Glucose 250 mg/dL (74-106); High Density Lipoprotein 47 mg/dL; Potassium 4.2 mmol/L (3.5-5.1); Sodium Level 137 mmol/L (136-145); Triglycerides 185 mg/dL; Very Low Density Lipoprotein 37 mg/dL (5-40)
[2020-03-17 12:41] LABS: Hemoglobin A1c 9.4 % (3.8-5.6)
== END ==
PROVIDERS: PCP Family Medicine; Referring Provider Family Medicine; Visit Provider Family Medicine
DX: E11.9 Type 2 diabetes mellitus without complications (principal); I10 Essential (primary) hypertension
CPT/HCPCS: 36415; 80048; 80061; 83036

== ENCOUNTER → 2020-03-18 10:28 | Outpatient (CLI) | payer MEDICARE, OTHER, SELFPAY ==
[2020-03-17 10:40] VITALS: BMI 27.3
== END ==
PROVIDERS: PCP Family Medicine; Referring Provider Family Medicine; Visit Provider Family Medicine
DX: R19.7 Diarrhea, unspecified (principal)
CPT/HCPCS: 87506

== ENCOUNTER → 2020-09-01 11:18 | Outpatient (CLI) | payer MEDICARE, OTHER, SELFPAY ==
[2020-04-21 09:30] VITALS: BMI 27.3
[2020-09-01 12:50] LABS: Magnesium 1.9 mg/dL (1.6-2.6); T4 Free Direct 1.13 ng/dL (0.76-1.46); Thyroid Stim Hormone (TSH) 0.75 uIU/mL (0.358-3.74)
== END ==
PROVIDERS: PCP Family Medicine; Referring Provider Family Medicine; Visit Provider Family Medicine
DX: G25.0 Essential tremor (principal)
CPT/HCPCS: 36415; 83735; 84439; 84443

== ENCOUNTER → 2020-09-16 12:42 | Outpatient (CLI) | payer MEDICARE, OTHER, SELFPAY ==
[2020-04-21 09:30] VITALS: BMI 27.3
--- NOTE | 2020-09-16 18:17 | SP.MBSS_ITS ---
Modified Barium Swallow - Patient Information Study Date: 09/16/20 Study Time: 12:45 Direct Billable Minutes: 80 Total Minutes procedure & reportin Diagnosis: Dysphagia (R13.10) Referring Physician: Garrick Benson Reason for Referral: The patient is a 70 year old female referred for a modified barium swallow (MBS) study to objectively assess the patients oropharyngeal swallow function under fluoroscopy secondary to reported intermittent coughing (2-3x per month) following ingestion of either solids or liquids (no specific correlation) with reported persistent difficulties with swallow onset associated with an non- specific movement type disorder (she states that her mild tremors were associated with a medication side effect years prior, which has remained consistent). Medical History: Hypertension, hyperlipemia, fibula fracture, irritable bowel syndrome, anxiety, type II diabetes mellitus - Penetration-Aspiration Scale Penetration-Aspiration Scale: OBJECTIVE ASSESSMENT OF SWALLOW FUNCTION (QUANTITATIVE ? PER TRIAL): PENETRATION / ASPIRATION SCALE ([place]): 1 = does not enter airway 2 = enters airway/above vocal folds/ejected 3 = enters airway/above vocal folds/not ejected 4 = enters airway/contacts vocal folds/ejected 5 = enters airway/contacts vocal folds/not ejected 6 = enters airway/below vocal folds/ejected 7 = enters airway/below vocal folds/not ejected despite effort 8 = enters airway/below vocal folds/no effort PENETRATION / ASPIRATION SCALE (SCORE): Thin liquid - 5 mL tsp.: 1 Thin liquids via cup (trial - 1): 1 Thin liquids via cup (trial - 2): 1 Thin liquids via cup (trial - 3): 1 Thin liquids via straw (trial -1): 1 Thin liquids via straw (trial -2): 1 Thin liquids via straw (trial -3): 1 Pudding via spoon: 1 Solid textures: 1 Thin liquids via straw (chin tuck - 1): 1 Thin liquids via straw (chin tuck - 2): 1 Thin liquids via straw (chin tuck - 3): 1 - Oral Phase Labial Seal: No Labial Escape Tongue Control During Bolus Hold: Posterior escape of greater than half of bolus Bolus Preparation/Mastication: Timely and efficient chewing and mashing Bolus Transport/Lingual Motion: Repetitive/disorganized tongue motion Oral Residue: Trace residue lining oral structures - Pharyngeal Phase Initiation of Pharyngeal Swallow: Bolus head in pyriforms Soft Palate Elevation: No bolus between soft palate and pharyngeal wall Laryngeal Elevation: Partial superior movement thyroid cart/partial apprx aryt- epig petiole Anterior Hyoid Excursion: Complete anterior movement Epiglottic Movement: Complete inversion Laryngeal Vestibule Closure at Height of Swallow: Complete; no air/contrast in laryngeal vestibule Pharyngeal Stripping Wave: Present - complete Pharyngoesophageal Segment Opening: Complete distension and complete duration; no obstruction of flow Tongue Base Retraction: Trace column of contrast between tongue base & post. pharyngeal wall Pharyngeal Residue: Collection of residue within or on pharyngeal structures - Diagnosis/Impression Diagnosis: Dysphagia (R13.11) Impression: The patient presents with mild oral dysphagia (DSRS: 2) with no penetration or aspiration noted. Her swallow profile was marked by abnormal oral transitional phase movements, with fine discoordinated lingual movements (tremor / fasciculation) with inconsistent oral phase swallow onset delay (2-3 seconds in length) in addition to rather consistent premature posterior bolus loss to the valleculae prior to swallow onset, which does have the potential to further complicate pharyngeal phase synchrony. Her oral preparatory phase and pharyngeal phase appeared unremarkable otherwise. Her deficits appeared to be managed successfully with reduction in bolus rate / volume adjustments, with little benefit noted with execution of the chin tuck posture. - Recommendations Comment: DIET TEXTURE RECOMMENDATIONS: regular textured (IDDSI: 7), thin liquid diet (IDDSI: 0) diet RECOMMENDED COMPENSATORY STRATEGIES: reduced bolus volume / rate of ingestion, consider alternating textures / temperatures etc. to facilitate more timely swallow onset timing, seated upright at 90 degrees during PO intake, remain upright for 30-60 minutes post meal (GERD precaution). Recommend Repeat Modified Barium Swallow: No Need for Skilled Speech Therapy Services: No Education Completed: 1. Described result of evaluation., 2. Pt understands evaluation & agrees with goals and treatment plan. - Status Active ST Patient: Not Active
== END ==
PROVIDERS: PCP Family Medicine; Referring Provider Family Medicine; Visit Provider Family Medicine
DX: R13.10 Dysphagia, unspecified (principal)
CPT/HCPCS: 74230; 92611

== ENCOUNTER → 2020-11-24 11:00 | Outpatient (CLI) | payer MEDICARE, OTHER, SELFPAY ==
[2020-04-21 09:30] VITALS: BMI 27.3
--- NOTE | 2020-11-24 11:04 | RAD_ITS ---
EXAM: XR LUMBOSACRAL SPINE, 2 OR 3 VIEWS CLINICAL INDICATION: 2 weeks of back pain after falling TECHNIQUE: Frontal and lateral views of the lumbar spine and sacrum. This report was created using [employer] report [employer] technology. COMPARISON: None. FINDINGS: VERTEBRAE: Diffuse osteopenia. Normal variant limbus vertebral body of L3. No compression fracture. DISC SPACES: Slight disc space narrowing at L4-L5. GASTROINTESTINAL TRACT: Unremarkable as visualized. Included bowel gas pattern is non-obstructive. RAD/Lumbar Spine 2 or 3 Views IMPRESSION: No acute findings in the lumbar spine. Electronically Signed: Nick Sellers MD ([place]) at 16:53 EDT , Service support ,
--- NOTE | 2020-11-24 11:05 | RAD_ITS ---
EXAM: XR SACRUM AND COCCYX, 2 OR MORE VIEWS CLINICAL INDICATION: 2 weeks of back pain after falling TECHNIQUE: Frontal and lateral views of the sacrum and coccyx. This report was created using [employer] report [employer] technology. COMPARISON: None. FINDINGS: SACRUM/COCCYX: Unremarkable. No displaced fracture. No destructive or sclerotic lesions. Note that overlapping bowel shadows may however obscure fine detail in the frontal view. Sacroiliac joints are unremarkable. SOFT TISSUES: Unremarkable. No soft tissue swelling or gas. RAD/Sacrum-Coccyx min 2 Views IMPRESSION: Unremarkable sacro-coccygeal spine. Electronically Signed: Nick Sellers MD ([place]) at 16:52 EDT , Service support ,
== END ==
PROVIDERS: PCP Family Medicine; Visit Provider Nurse Practitioner Family
DX: M53.3 Sacrococcygeal disorders, not elsewhere classified (principal); M54.5 Low back pain; W19.XXXA Unspecified fall, initial encounter
CPT/HCPCS: 72100; 72220

== ENCOUNTER 2020-11-30 12:00 | Emergency (ER) | payer MEDICARE, OTHER, SELFPAY ==
[2020-04-21 09:30] VITALS: BMI 27.3
[2020-11-30 12:02] VITALS: BP 144/75; PULSE 102; RESP 14; TEMP 36.3; O2SAT 94; BMI 27.1
--- NOTE | 2020-11-30 13:59 | ED.RN ---
RN SENT BLOODWORK DOWN BEFORE DOWNTIME STARTED. UA SENT AT 1355.
[2020-11-30 14:01] LABS: Mucous, Urine 0 SEEN /hpf (<or=2+); Red Blood Cells-Urine 0 SEEN /hpf (0-5)
[2020-11-30 14:03] LABS: Color, Urine Yellow (Yellow); Glucose, Dipstick 1000 mg/dl (Normal); Ketone-Dipstick 15 mg/dl (Negative); Leukocyte Esterase-Dipstick 25 /ul (Negative); Nitrite-Dipstick Negative (Negative); Occult Blood-Urine 10 /ul (Negative); Protein-Dipstick 15 mg/dl (Negative); Urine Bilirubin Dipstick Negative (Negative); Urine Clarity Sl. Cloudy (Clear); Urine Urobilinogen Normal (Normal)
[2020-11-30 14:03] LABS: Absolute Neutrophil Count 4.5 X10^3/uL (2.0-7.7); Basophil# 0.03 X10^3/uL; Basophil% 0.5 % (0-1); Eosinophil# 0.04 X10^3/uL; Eosinophils% 0.6 % (0-5); Hematocrit 47.4 % (37-47); Hemoglobin 15.6 g/dL (12.0-15.0); Lymphocyte % 20.5 % (19-41); Mean Corp Hgb Conc 32.9 g/dL (32-36); Mean Corpuscular Hgb 28.9 pg (27.0-32.0); Mean Corpuscular Volume 87.8 fL (81-99); Mean Platelet Vol. 9.9 fl (6.2-12.0); Monocyte% 7.9 % (0-10); NRBC Flagged by Analyzer 0 % (0-5); Neutrophil # 4.46 X10^3/uL (2.7-7.7); Neutrophil % 70.2 % (47-70); Platelet Count 230 K/mm3 (150-450); RBC Distribution Width CV 12.5 % (11.6-14.6); RBC Distribution Width SD 39.8 fl (35.1-43.9); White Blood Count 6.4 K/mm3 (4.4-11.0)
[2020-11-30 14:06] LABS: International Normalized Ratio 1.1; Partial Thromboplast Time 24.1 Seconds (24.1-36.2); Prothrombin Time (Protime)PT. 13.6 SECONDS (11.7-14.9)
[2020-11-30 14:12] LABS: ALB/GLOB Ratio 1.3 RATIO (0.9-2.4); AST(SGOT) 9 U/L (15-37); Alanine Aminotransfer ALT/SGPT 14 U/L (13-56); Albumin, Serum 4.3 g/dL (3.2-5.0); Alkaline Phosphatase 95 U/L (45-117); Anion Gap 6 (5-15); BUN 21 mg/dL (7-18); BUN/Creat Ratio 21.7 RATIO (10-20); Calcium,Total 9.5 mg/dL (8.5-10.1); Chloride 102 mmol/L (98-107); Creatinine, Serum 0.97 mg/dL (0.55-1.02); EST Glomerular Filtration Rate 61 mL/min (>60); Est Glom Filt Rate - Afr Amer 73 mL/min (>60); Estimated Creatinine Clearance 44.64 ml/min; Globulin 3.3 g/dL (2.2-4.2); Glucose 340 mg/dL (74-106); Potassium 3.9 mmol/L (3.5-5.1); Protein, Total 7.6 g/dL (6.4-8.2); Sodium Level 135 mmol/L (136-145)
[2020-11-30 14:17] LABS: Bacteria 4+ /hpf (None Seen); Hyaline Cast 5-10 SEEN /lpf (0-5); Renal Epithelial Cells 0-5 SEEN /hpf (0-5); Squamous Epithelial Cells - UA 0-5 SEEN /hpf (5-10); Transitional Epithelial - Ur 0-5 SEEN /hpf (0-5); White Blood Cells 0-5 SEEN /hpf (0-5)
--- NOTE | 2020-11-30 14:42 | CT_ITS ---
STUDY: CT ABDOMEN AND PELVIS WITH CONTRAST REASON FOR EXAM: Female, 70 years old. lower abdominal pain RADIATION DOSAGE (If Supplied By Facility): CTDIvol = ( 11.56 ) mGy, DLP = ( 654.56 ) mGycm TECHNIQUE: Transaxial images were obtained from the dome of the diaphragm to the symphysis pubis without oral contrast. IV 100mL Isovue-300 was administered. Sagittal and coronal images were reconstructed. Individualized dose optimization techniques were used for this CT. COMPARISON: None. FINDINGS: Minor interstitial thickening at both lung bases slightly more pronounced on the left.. The visualized portions of the heart are within normal limits. Liver is fatty infiltrated without mass or bile duct dilatation.. Normal gallbladder and extrahepatic biliary system. Normal spleen. Normal pancreas. Normal bilateral adrenal glands. Normal right kidney. Normal left kidney. Normal visualized stomach. Mild nonspecific ileus. No evidence for small bowel obstruction There is diffusely a haustral appearance to the transverse descending and rectosigmoid colon which may be consistent with inflammatory bowel disease without appreciable inflammatory stranding in the fat at this time... No evidence for acute appendicitis. Minor atherosclerotic changes of the aorta without evidence for aneurysm. Normal inferior vena cava. Normal retroperitoneum. Normal urinary bladder. Uterus not visualized consistent with prior hysterectomy Normal abdominal wall. Lumbar spine demonstrates mild spondylosis. CT/Abdomen/Pelvis W IV Cont ONLY IMPRESSION: Mild nonspecific ileus. Findings which may be consistent with nonspecific inflammatory colitis without appreciable inflammatory stranding in the fat at this time. Status post hysterectomy Electronically Signed: Rajiv Kaplan MD at 16:16 EDT , Service support ,
[2020-11-30 16:00] VITALS: BP 140/77; PULSE 87; RESP 16; O2SAT 99
--- NOTE | 2020-11-30 16:24 | ED.DCSUM_ITS ---
History of Present Illness Chief Complaint: GI Bleed Informant: Patient, Family Narrative: 7-year-old female presents for the evaluation of bright red rectal bleeding. Patient tells me that she had diarrhea throughout the night. This morning she was having bright red blood per the rectum. She states she was having to go fairly frequently. She states this is never happened to her before. She notes no rectal discomfort. She states that her right ovary seems to be hurting her and was having some mild discomfort in the upper quadrants. No fevers. Last colonoscopies about 5 years ago. She tells me she was diagnosed with irritable bowel. She has never had colitis before. - Past Medical History (1) Essential tremor Status: Chronic (2) Hyperlipemia Status: Chronic (3) Hypertension Status: Chronic (4) JOSHUA (obstructive sleep apnea) Status: Chronic Comment: Patient feels much better on her CPAP sleeping better and having more energy through the day. (5) Type 2 diabetes mellitus Status: Chronic Past Medical History - Allergies and Home Meds Allergies/Adverse Reactions: Allergies No Known Allergies Allergy (Verified 11/30/20 12:01) Primary Care Physician: Garrick Benson DO [Primary Care Provider] - Surgical History: noncontributory Lives: Spouse/ Significant Other Smoking Status: Never smoker Drugs: None Review of Systems General: Denies: Chills, Fever, Sweats Eyes: Denies: Visual changes - bilaterally, Diplopia ENT: Denies: Rhinorrhea, Sore throat Cardiovascular: Denies: Chest pain, Palpitations Respiratory: Denies: Dyspnea, Cough, Dyspnea on exertion Gastrointestinal: Reports: Abdominal pain, Diarrhea, Hematochezia. Denies: Nausea, Vomiting, Melena Genitourinary: Denies: Dysuria, Hematuria, Frequency Musculoskeletal: Denies: Back pain, Extremity Pain Skin: Denies: Rash, Wounds Neurological: Denies: Headache, Weakness, Numbness Physical Exam Vital Signs/Narrative: Vital Signs Pulse Resp BP Pulse Ox 11/30/20 16:00 87 16 140/77 H 99 Inital Vital Signs reviewed: Yes General: Well nourished, Well developed, No Acute Distress Head: Normocephalic, Atraumatic Eyes: Perrl, EOMI ENT: Moist mucous membranes, No rhinorrhea Neck: Supple, Nontender Cardiovascular: Regular rate, Regular rhythm, No murmurs Respiratory: No distress, CTA bilaterally, Chest nontender Abdomen: Soft, Nontender, Nondistended, Normal bowel sounds Rectal: - - There is no blood or stool on digital rectal exam. No palpable masses. Back: Nontender, Normal Inspection Extremities: Nontender, No edema Skin: Normal color, No rash Neurological: Alert, Oriented x3, Cranial nerves II-XII grossly intact, Normal Strength, Normal Sensation Psychological: Normal affect, Normal Mood Diagnostic/Tx/Re-eval Clinical Impression(s) from Imaging Studies Abdomen/Pelvis CT 11/30/20 14:42 IMPRESSION: Mild nonspecific ileus. Findings which may be consistent with nonspecific inflammatory colitis without appreciable inflammatory stranding in the fat at this time. Status post hysterectomy Electronically Signed: Rajiv Kaplan MD at 16:16 EDT , Service support , Laboratory Last Values WBC 6.4 K/mm3 (4.4-11.0) 11/30/20 12:30 RBC 5.40 M/mm3 (4.2-5.4) 11/30/20 12:30 Hgb 15.6 g/dL (12.0-15.0) H 11/30/20 12:30 Hct 47.4 % (37-47) H 11/30/20 12:30 MCV 87.8 fL (81-99) 11/30/20 12:30 MCH 28.9 pg (27.0-32.0) 11/30/20 12:30 MCHC 32.9 g/dL (32-36) 11/30/20 12:30 RDW Std Deviation 39.8 fl (35.1-43.9) 11/30/20 12:30 RDW Coeff of Vero 12.5 % (11.6-14.6) 11/30/20 12:30 Plt Count 230 K/mm3 (150-450) 11/30/20 12:30 MPV 9.9 fl (6.2-12.0) 11/30/20 12:30 Immature Gran % (Auto) 0.300 % (0.0-0.9) 11/30/20 12:30 Neut % (Auto) 70.2 % (47-70) H 11/30/20 12:30 Lymph % (Auto) 20.5 % (19-41) 11/30/20 12:30 [place] % (Auto) 7.9 % (0-10) 11/30/20 12:30 Eos % (Auto) 0.6 % (0-5) 11/30/20 12:30 Baso % (Auto) 0.5 % (0-1) 11/30/20 12:30 Absolute Neuts (auto) 4.5 X10^3/uL (2.0-7.7) 11/30/20 12:30 Absolute Lymphs (auto) 1.30 X10^3/uL (0.83-4.51) 11/30/20 12:30 Nucleated RBC % 0 % (0-5) 11/30/20 12:30 PT 13.6 SECONDS (11.7-14.9) 11/30/20 12:30 INR 1.1 11/30/20 12:30 APTT 24.1 Seconds (24.1-36.2) 11/30/20 12:30 Sodium 135 mmol/L (136-145) L 11/30/20 12:30 Potassium 3.9 mmol/L (3.5-5.1) 11/30/20 12:30 Chloride 102 mmol/L (98-107) 11/30/20 12:30 Carbon Dioxide 27.0 mmol/L (21.0-32.0) 11/30/20 12:30 Anion Gap 6 (5-15) 11/30/20 12:30 BUN 21 mg/dL (7-18) H 11/30/20 12:30 Creatinine 0.97 mg/dL (0.55-1.02) 11/30/20 12:30 Estim Creat Clear Calc 44.64 ml/min 11/30/20 12:30 Est GFR (MDRD) Af Amer 73 mL/min (>60) 11/30/20 12:30 Est GFR (MDRD) Non-Af 61 mL/min (>60) 11/30/20 12:30 BUN/Creatinine Ratio 21.7 RATIO (10-20) H 11/30/20 12:30 Glucose 340 mg/dL (74-106) H 11/30/20 12:30 Calcium 9.5 mg/dL (8.5-10.1) 11/30/20 12:30 Total Bilirubin 0.80 mg/dL (0.20-1.00) 11/30/20 12:30 AST 9 U/L (15-37) L 11/30/20 12:30 ALT 14 U/L (13-56) 11/30/20 12:30 Alkaline Phosphatase 95 U/L (45-117) 11/30/20 12:30 Total Protein 7.6 g/dL (6.4-8.2) 11/30/20 12:30 Albumin 4.3 g/dL (3.2-5.0) 11/30/20 12:30 Globulin 3.3 g/dL (2.2-4.2) 11/30/20 12:30 Albumin/Globulin Ratio 1.3 RATIO (0.9-2.4) 11/30/20 12:30 Urine Color Yellow (Yellow) 11/30/20 13:46 Urine Clarity Sl. Cloudy (Clear) 11/30/20 13:46 Urine pH 5.0 (5.0 - 8.0) 11/30/20 13:46 Ur Specific [place] 1.020 (1.002-1.030) 11/30/20 13:46 Urine Protein 15 mg/dl (Negative) H 11/30/20 13:46 Urine Glucose (UA) 1000 mg/dl (Normal) H 11/30/20 13:46 Urine Ketones 15 mg/dl (Negative) H 11/30/20 13:46 Urine Occult Blood 10 /ul (Negative) H 11/30/20 13:46 Urine Nitrite Negative (Negative) 11/30/20 13:46 Urine Bilirubin Negative mg/dL (Negative) 11/30/20 13:46 Urine Urobilinogen Normal mg/dl (Normal) 11/30/20 13:46 Ur Leukocyte Esterase 25 /ul (Negative) H 11/30/20 13:46 Urine RBC 0 SEEN /hpf (0-5) 11/30/20 13:46 Urine WBC 0-5 SEEN /hpf (0-5) 11/30/20 13:46 Ur Squamous Epith Cells 0-5 SEEN /hpf (5-10) 11/30/20 13:46 Ur Transition Epith Cell 0-5 SEEN /hpf (0-5) 11/30/20 13:46 Ur Renal Epithelial Cell 0-5 SEEN /hpf (0-5) 11/30/20 13:46 Urine Bacteria 4+ /hpf (None Seen) 11/30/20 13:46 Hyaline Casts 5-10 SEEN /lpf (0-5) 11/30/20 13:46 Urine Mucus 0 SEEN /hpf (<or=2+) 11/30/20 13:46 - Medical Decision Making Patient is hemodynamically stable. Her hemoglobin is normal. White count is normal. There is no blood on digital rectal exam but the patient states that she did have a small amount of bleeding while here in the department. CT the abdomen pelvis was performed which demonstrates possible early colitis. We will go ahead and place her on antibiotics have her follow-up with her primary care physician as already scheduled on Monday. Should she worsen in the interim return here. Advised that she most likely will need a follow-up colonoscopy. ED Disposition - Plan for ED Patient: Disposition: Home or Assisted Living Diagnosis: Lower GI bleeding, Colitis Instructions: ED Lower GI Bleeding (Stable) Prescriptions: Amox/Clavulanate Tablet [Augmentin Tablet] 875 mg PO Q12H #14 tab Prescription Printed Referrals: Garrick Benson DO [Primary Care Provider] - Keep [facility] appointment
== END 2020-11-30 16:39 | disposition home or self-care (01) ==
PROVIDERS: Emergency Provider Emergency Medicine; PCP Family Medicine
DX: K52.9 Noninfective gastroenteritis and colitis, unspecified (principal); E11.9 Type 2 diabetes mellitus without complications; I10 Essential (primary) hypertension; E78.5 Hyperlipidemia, unspecified; G47.33 Obstructive sleep apnea (adult) (pediatric); G25.0 Essential tremor
CPT/HCPCS: 74177; 80053; 81001; 85025; 85610; 85730; 99282; Q9967; A4216

== ENCOUNTER → 2020-12-02 10:43 | Outpatient (CLI) | payer MEDICARE, OTHER, SELFPAY ==
[2020-12-02 10:43] VITALS: BMI 27.3
[2020-12-02 12:37] LABS: T4 Free Direct 1.26 ng/dL (0.76-1.46); Thyroid Stim Hormone (TSH) 1.62 uIU/mL (0.358-3.74)
== END ==
PROVIDERS: PCP Family Medicine; Visit Provider Family Medicine
DX: G25.0 Essential tremor (principal)
CPT/HCPCS: 36415; 84439; 84443

== ENCOUNTER → 2020-12-10 07:54 | Outpatient (CLI) | payer MEDICARE, OTHER, SELFPAY ==
[2020-12-03 10:14] VITALS: BMI 27.3
--- NOTE | 2020-12-10 07:57 | MRI_ITS ---
STUDY: MRI BRAIN WITH AND WITHOUT CONTRAST REASON FOR EXAM: Female, 70 years old. change in mental status TECHNIQUE: Standardized multiplanar fat and water weighted pulse sequences were obtained. 14ml IV Dotarem was administered for the contrast portion of the examination. COMPARISON: None. FINDINGS: Normal size of the ventricles and extra-axial spaces for the patient''s age. There are multiple white matter hyperintensities, distributed throughout the deep white matter tracts of the cerebral hemispheres, consistent with moderate chronic white matter ischemic changes. Normal bilateral basal ganglia. Normal thalami. There is no extra-axial fluid accumulation. Normal flow voids within the major intracranial circulation suggesting patency by spin echo criteria. Normal venous enhancement. There is no enhancing intra-axial or extra-axial abnormality. Normal sella turcica, pituitary gland, infundibular stalk, optic chiasm and hypothalamus. Normal tectal plate and pineal gland. Normal midbrain, barry and medulla. Normal cerebellum. Normal basal cisterns. Normal bilateral temporal bones. Normal bilateral internal auditory canals. No demonstrated orbital abnormality, within the constraints of a routine brain study. Normal visualized paranasal sinuses. Normal calvarium and skull base. Normal visualized soft tissue structures. Normal visualized upper cervical spine. MRI/Brain W/WO Contrast IMPRESSION: Involutional changes of the brain, as described above. Electronically Signed: Brice Bhatt MD at 16:22 EDT Tel , Service support ,
== END ==
PROVIDERS: PCP Family Medicine; Referring Provider Family Medicine; Visit Provider Family Medicine
DX: R41.82 Altered mental status, unspecified (principal)
CPT/HCPCS: 70553; A9575

== ENCOUNTER 2021-01-05 01:05 | Inpatient (IN) | payer MEDICARE, OTHER, SELFPAY ==
[2021-01-05] VITALS (39 sets, daily range): BP systolic 86–138; BP diastolic 40–82; PULSE 75–119; RESP 15–26; TEMP 35.5–37.8; O2SAT 94–100; BMI 23.3; BMI 25.8
--- NOTE | 2021-01-05 01:10 | EKG12_ITS ---
Test Reason : STROKE Blood Pressure : / mmHG Vent. Rate : 112 BPM Atrial Rate : 112 BPM P-R Int : 160 ms QRS Dur : 092 ms QT Int : 358 ms P-R-T Axes : 067 161 027 degrees QTc Int : 488 ms Sinus tachycardia Left posterior fascicular block Poor R wave progression Abnormal ECG Confirmed by PATEL ROLLINS, SEAN ([id number]), writer editor SANFORD RODRIGUEZ ([id number]) on 01/06/2021 9:01:08 AM Referred By: EMMIE ROLLINS Confirmed By:SEAN SWEENEY MD
--- NOTE | 2021-01-05 01:10 | CT_ITS ---
We are attempting to reach an attending provider to discuss findings. An addendum with communication details will be sent when the communication is complete. STUDY: CT HEAD STROKE PROTOCOL W/O CONTRAST INJECTION REASON FOR EXAM: Female, 70 years old. Neuro deficit, acute, stroke suspected TECHNIQUE: Transaxial CT imaging of the brain was performed without administration of intravenous contrast material. Individualized dose optimization techniques were used for this CT. COMPARISON: 01/13/2018. FINDINGS: Normal soft tissue structures. Normal calvarium. There is mild cerebral atrophy with widening of the extra-axial spaces and ventricular dilatation. There are areas of decreased attenuation within the white matter tracts of the supratentorial brain, consistent with microvascular disease changes. Normal basal ganglia and thalami. Normal brainstem. Normal cerebellum. There is no intracranial hemorrhage. There are no findings of an acute ischemic infarction. Normal visualized paranasal sinuses. CT/STROKE Brain/Head without Cont IMPRESSION: Chronic changes as described. No acute intracranial hemorrhage or space-occupying lesion. Electronically Signed: Rosy Wolfe MD at 1:27 EDT , Service support ,
--- NOTE | 2021-01-05 01:19 | CT_ITS ---
We are attempting to reach an attending provider to discuss findings. An addendum with communication details will be sent when the communication is complete. STUDY: CTA HEAD AND NECK WITH CONTRAST REASON FOR EXAM: Female, 70 years old. stroke RADIATION DOSAGE (If Supplied By Facility): CTDIvol = ( 13.10 ) mGy, DLP = ( 633.25 ) mGycm TECHNIQUE: CT angiography was performed with a multi-detector CT scanner. Data acquisition was obtained from the skull base through the vertex following intravenous administration of IV 100mL Isovue-370. MIP images were reconstructed from the axial data set. Post-processing of the angiographic images was performed, with multiplanar reformation and 3D reconstruction. Individualized dose optimization techniques were used for this CT. COMPARISON: No relevant priors. FINDINGS: Normal bilateral petrous carotid arteries. Normal right cavernous carotid artery with a normal supraclinoid bifurcation. Normal left cavernous carotid artery with a normal supraclinoid bifurcation. Normal right A1 segments of the anterior cerebral artery. Normal left A1 segments of the anterior cerebral artery. There is bulbous appearance at the anterior communicating artery seen on image 76, series 601 and image 96, series 2, cannot exclude a small aneurysmal dilatation at this level. This area measures 0.3 x 0.3 cm. Normal bilateral A2 segments of the anterior cerebral arteries. Normal right M1 and M2 segments of the middle cerebral arteries, with a normal M1 bifurcation. Normal left M1 and M2 segments of the middle cerebral arteries, with a normal M1 bifurcation. Normal right posterior communicating artery (PCOM). Normal left posterior communicating artery (PCOM). Normal bilateral vertebral arteries. Normal basilar artery with a normal basilar bifurcation. The visualized bilateral superior cerebellar (SCA) arteries are normal. Normal bilateral P1, P2 and visualized P3 segments of the posterior cerebral arteries. There is no demonstrated aneurysm of the [place]. There is no demonstrated abnormality of the visualized brain. AORTIC ARCH: Normal visualized aortic arch. Normal origins of the brachiocephalic, left common carotid, and left subclavian arteries. RIGHT CAROTID ARTERIES: Normal right common carotid artery (CCA). Normal right common carotid bulb. Normal origin of the right internal carotid (ICA) artery without a hemodynamically significant stenosis. Normal visualized cervical portion of the right internal carotid artery. Normal origin of the right external carotid artery (ECA). LEFT CAROTID ARTERIES: Normal left common carotid artery (CCA). Normal left common carotid bulb. Normal origin of the left internal carotid (ICA) artery without a hemodynamically significant stenosis. Normal visualized cervical portion of the left internal carotid artery. Normal origin of the left external carotid artery (ECA). VERTEBRAL ARTERIES: Normal bilateral vertebral arteries. CT/CTA Head AND Neck W/ Contrast IMPRESSION: Cannot exclude minimal aneurysmal dilatation involving the anterior communicating artery or distal aspect of the left A1 segment. Otherwise negative CTA Head and neck with contrast with no evidence of significant significant stenosis or occlusion. Electronically Signed: Rosy Wolfe MD at 1:53 EDT , Service support ,
[2021-01-05 01:44] LABS: Absolute Lymphocyte Count 3.84 X10^3/uL (0.83-4.51); Absolute Neutrophil Count 17.7 X10^3/uL (2.0-7.7); Basophil# 0.05 X10^3/uL; Basophil% 0.2 % (0-1); Eosinophil# 0.08 X10^3/uL; Eosinophils% 0.3 % (0-5); Hematocrit 46.5 % (37-47); Hemoglobin 14.1 g/dL (12.0-15.0); Lymphocyte # 3.84 X10^3/ul (0.83-4.51); Lymphocyte % 15.2 % (19-41); Mean Corp Hgb Conc 30.3 g/dL (32-36); Mean Corpuscular Hgb 29.2 pg (27.0-32.0); Mean Corpuscular Volume 96.3 fL (81-99); Mean Platelet Vol. 9.9 fl (6.2-12.0); Monocyte# 2.24 X10^3/uL; Monocyte% 8.9 % (0-10); NRBC Flagged by Analyzer 0 % (0-5); Neutrophil # 17.73 X10^3/uL (2.7-7.7); Neutrophil % 70.4 % (47-70); POSITIVE DIFFERENTIAL YES; POSITIVE MORPHOLOGY YES; Platelet Count 419 K/mm3 (150-450); RBC Distribution Width CV 13.6 % (11.6-14.6); RBC Distribution Width SD 48.1 fl (35.1-43.9); Red Blood Count 4.83 M/mm3 (4.2-5.4); White Blood Count 25.2 K/mm3 (4.4-11.0)
[2021-01-05 01:54] LABS: International Normalized Ratio 1.6; Partial Thromboplast Time 23.8 Seconds (24.1-36.2); Prothrombin Time (Protime)PT. 18.2 SECONDS (11.7-14.9)
[2021-01-05 02:02] LABS: Differential Indicated SCAN CRITERIA MET
[2021-01-05 02:11] LABS: Anion Gap 32 (5-15); BUN 28 mg/dL (7-18); BUN/Creat Ratio 18.5 RATIO (10-20); Calcium,Total 8.7 mg/dL (8.5-10.1); Chloride 103 mmol/L (98-107); Creatinine, Serum 1.51 mg/dL (0.55-1.02); EST Glomerular Filtration Rate 36 mL/min (>60); Est Glom Filt Rate - Afr Amer 44 mL/min (>60); Estimated Creatinine Clearance 32.45 ml/min; Glucose 410 mg/dL (74-106); Potassium 4.6 mmol/L (3.5-5.1); Sodium Level 141 mmol/L (136-145)
[2021-01-05] MEDS: 0.9% Normal Saline 1,000 ML 999 ML IV (02:20)
[2021-01-05] MEDS: Sodium Bicarbonate 8.4% 50 ML Syringe 100 MEQ IV (02:22)
--- NOTE | 2021-01-05 02:26 | RAD_ITS ---
STUDY: X-RAY CHEST REASON FOR EXAM: Female, 70 years old. Neuro deficit, acute, stroke suspected TECHNIQUE: Single AP portable view of the chest. COMPARISON: None. FINDINGS: The lungs are clear and expanded. There is no demonstrated pleural abnormality. Normal size heart. Normal mediastinum and anisha. Normal visualized pulmonary arteries. Normal visualized aortic arch and descending thoracic aorta. There is demineralization of the osseous structures. Normal visualized ribs, clavicles, and shoulders. There is no demonstrated abnormality of the visualized soft tissue structures of the upper abdomen. RAD/Chest 1 View IMPRESSION: No acute cardiopulmonary disease. Electronically Signed: Rosy Wolfe MD at 3:11 EDT , Service support ,
--- NOTE | 2021-01-05 02:26 | ED.RN ---
verbal order received from Dr Adame to discontinue NIH's
--- NOTE | 2021-01-05 02:29 | EDS_ITS ---
HPI History of Present Illness Chief Complaint: Neuro S/Sx Onset/Context/Timing Onset: Yesterday Context: Gradual Onset Timing: Continuous Current Severity: Moderate Maximum Severity: Severe Narrative Narrative: The patient is a 70-year-old female with medical history significant for diabetes, tremor, sleep apnea, and hypertension who presents to the emergency department with change in mental status. Apparently, the patient has been complaining of just not feeling well for the past 2 days. states that she really had no appetite. She was verbal and alert at about 7 PM and he laid her down for bed. He states that at about 1230, he tried to wake her up and she was not responding. He states that she was doing a lot of abnormal breathing and just did not seem to understand where she was. On arrival, the stroke team was activated, but the patient's last normal was 6 hours ago. She was not a TPA candidate. [facility] Medical History Anxiety Fracture, fibula Hyperlipemia Hypertension IBS (irritable bowel syndrome) Type 2 diabetes mellitus Home Medications aspirin 81 mg chewable tablet 81 mg PO QDAY 12/26/17 [History Last Taken 01/12/18] calcium carb,cit ER 600 mg-vit D3 12.5 mcg (500 unit) tablet,ext.rel 1 tab PO DAILY 12/26/17 [History Last Taken 01/12/18] dulaglutide 3 mg/0.5 mL subcutaneous pen injector 3 mg SC QWEEK #2 ml 11/24/20 [Rx Last Taken Unknown] blood sugar diagnostic #100 each 12/02/20 [Rx Last Taken Unknown] blood-glucose meter #1 each 12/02/20 [Rx Last Taken Unknown] escitalopram oxalate 20 mg tablet 20 mg PO DAILY #90 tab 12/02/20 [Rx Last Taken Unknown] lisinopril 5 mg tablet 5 mg PO QDAY #90 tab 12/02/20 [Rx Last Taken Unknown] metformin 500 mg tablet 1,000 mg PO BID #360 tab 12/02/20 [Rx Last Taken Unkno wn] simvastatin 20 mg tablet 20 mg PO DAILY #90 tab 12/02/20 [Rx Last Taken Unknown] dapagliflozin 10 mg tablet 10 mg PO DAILY #30 tablet 12/22/20 [Rx Last Taken Unknown] Allergy/AdvReac Type Severity Reaction Status Date / Time No Known Allergies Allergy Verified 12/02/20 10:05 Family History Mother Myocardial infarction, Onset Age: 76 Father Myocardial infarction, Onset Age: 57 Brother Myocardial infarction Cancer lung Sister Cancer cervical Surgical History History of appendectomy History of hernia repair History of partial hysterectomy History of prolapse of bladder History of tubal ligation Hx of bilateral cataract extraction Social History Smoking Status: Never smoker alcohol intake: never substance use type: does not use what type of physical activity do you participate in: none ROS ROS ED Review of Systems ROS Unobtainable: due to encephalopathy EXAM Physical Exam Const Vital Signs: 01/05/21 01:06 01/05/21 01:10 01/05/21 01:11 Temperature 96 F L 96.1 F L Temperature Source Temporal Temporal Pulse Rate 116 H 109 H Respiratory Rate 26 H 22 H Blood Pressure 138/74 H 112/50 L Blood Pressure Mean 95 70 Pulse Ox 94 94 100 Oxygen Delivery Method Room Air Nasal Cannula Venturi Mask Oxygen Flow Rate (L/min) 2 2 01/05/21 01:35 01/05/21 01:40 01/05/21 02:06 Temperature Temperature Source Pulse Rate 109 H 110 H 112 H Respiratory Rate 21 H 21 H 21 H Blood Pressure 112/50 L 137/62 H 121/68 H Blood Pressure Mean 70 87 85 Pulse Ox 100 100 98 Oxygen Delivery Method Nasal Cannula Nasal Cannula Nasal Cannula Oxygen Flow Rate (L/min) 2 2 2 01/05/21 02:10 01/05/21 02:28 Temperature 97.5 F L Temperature Source Temporal Pulse Rate 112 H 119 H Respiratory Rate 23 H 20 H Blood Pressure 121/68 H 121/68 H Blood Pressure Mean 85 85 Pulse Ox 98 100 Oxygen Delivery Method Nasal Cannula Nasal Cannula Oxygen Flow Rate (L/min) 2 2 Positive well nourished and obese Nutritional Appearance: obese HEENT Reports dry mucous membranes Negative for trauma or tenderness Mouth ED: Yes dry mucous membranes Mouth: dry mucous membranes Eyes PERRL and EOMs intact bilaterally Neck no lymphadenopathy, supple and no JVD Chest Wall inspection of chest normal and palpation of chest normal Resp normal respiratory effort and clear to auscultation bilaterally Effort and Inspection: Negative for pain with movement Cardio regular rate, regular rhythm and no murmurs GI normal to inspection, nondistended, normoactive bowel sounds Back/Spine no CVA tenderness Extremity normal to inspection Neuro Sensorium / Orientation: lethargic Motor Exam: general weakness Psych Mood & Affect: tearful Skin no rashes or lesions noted MDM MDM MDM Narrative Medical decision making narrative: Patient presents with change in mental status. On arrival, she is disoriented but will answer to name. She has weakness of all 4 extremities and would not follow any other commands. Stroke team was activated. Noncontrast head CT and CTA are both unremarkable. This does seem to be more of a global process rather than an acute stroke. Labs do show marked leukocytosis. The patient also has evidence of mild acute kidney injury and significantly elevated anion gap. I do suspect that she is in DKA. Blood gas was obtained. It does demonstrate rather significant acidosis with a pH of 6.98. The patient does have a CO2 of 16. She was tachypneic and maintaining her airway. I did not feel that intubation was necessary due to the risk of worsening her acidosis. Patient was given 2 A of bicarb. She was started on insulin drip. With her significant encephalopathy, she will be admitted to the ICU. Impression 1. DKA 2. Acute encephalopathy 3. Leukocytosis 4. Acute kidney injury Lab Data Attestation: I reviewed the patient's lab results. Labs: Laboratory Results - last 24 hr 01/05/21 01/05/21 01/05/21 01:30 01:30 01:30 WBC 25.2 H RBC 4.83 Hgb 14.1 Hct 46.5 MCV 96.3 MCH 29.2 MCHC 30.3 L RDW Std Deviation 48.1 H RDW Coeff of Vero 13.6 Plt Count 419 MPV 9.9 Immature Gran % (Auto) 5.000 H Neut % (Auto) 70.4 H Lymph % (Auto) 15.2 L [place] % (Auto) 8.9 Eos % (Auto) 0.3 Baso % (Auto) 0.2 Absolute Neuts (auto) 17.7 H Absolute Lymphs (auto) 3.84 Nucleated RBC % 0 Diff Path Review January foll PT 18.2 H INR 1.6 APTT 23.8 L Sodium 141 Potassium 4.6 Chloride 103 Carbon Dioxide 6.0 L* Anion Gap 32 H BUN 28 H Creatinine 1.51 H Estim Creat Clear Calc 32.45 Est GFR (MDRD) Af Amer 44 L Est GFR (MDRD) Non-Af 36 L BUN/Creatinine Ratio 18.5 Glucose 410 H Calcium 8.7 Troponin I < 0.015 Radiography Chest X-Ray - ED: 1 View, Read by ED Physician, Read by Radiologist, Heart, Lungs, Mediastinum, Bony Structures and No Acute Disease Diagnostic Testing: Radiology Impression Brain CT 01/05/21 01:10 IMPRESSION: Chronic changes as described. No acute intracranial hemorrhage or space-occupying lesion. Electronically Signed: Rosy Wolfe MD at 1:27 EDT , Service support , ADDENDUM: 01/05/21 0135 IMPRESSION: Chronic changes as described. No acute intracranial hemorrhage or space-occupying lesion. N.B. : The above information has been verbally conveyed by Rosy Wolfe MD to Selvin Adame MD, on 01/05/2021 01:29:00 (ET). Electronically Signed: Rosy Wolfe MD at 1:27 EDT , Service support , Head/Neck CTA 01/05/21 01:19 IMPRESSION: Cannot exclude minimal aneurysmal dilatation involving the anterior communicating artery or distal aspect of the left A1 segment. Otherwise negative CTA Head and neck with contrast with no evidence of significant significant stenosis or occlusion. Electronically Signed: Rosy Wolfe MD at 1:53 EDT , Service support , ADDENDUM: 01/05/21 0204 IMPRESSION: Cannot exclude minimal aneurysmal dilatation involving the anterior communicating artery or distal aspect of the left A1 segment. Otherwise negative CTA Head and neck with contrast with no evidence of significant significant stenosis or occlusion. N.B. : The above information has been verbally conveyed by Rosy Wolfe MD to Selvin Adame MD, on 01/05/2021 01:57:46 (ET). Electronically Signed: Rosy Wolfe MD at 1:53 EDT , Service support , EKG Initial EKG: Attestation: I personally reviewed and interpreted this EKG as follows: Interpretation: No Acute Injury Pattern, Sinus Tachycardia and Non- Specific ST Changes Prior EKG tracings: available for review Prior: Unchanged Critical Care Time Critical Care Time: Yes Critical care time (excluding procedures): 30-74 minutes, Including time spent:, Discussing w/Patient &/or Family/Aviation Maintenance Instructor, Discussing w/Consultants, Arranging Admission or Transfer and Performing Direct Patient Care at Bedside Discharge Plan Triage Chief Complaint: Neuro S/Sx ED Provider: Selvin Adame Dx/Rx/DC Orders Prescriptions: No Action aspirin 81 mg tablet,chewable 81 mg PO QDAY RF: 0 calcium carb,cit ER 600 mg calcium-vit D3 500 unit tablet,ext.release 600 mg calcium- 500 unit tablet extended release 1 tab PO DAILY RF: 0 lisinopril 5 mg tablet 5 mg PO QDAY Qty: 90 RF: 2 metformin 500 mg tablet 1,000 mg PO BID Qty: 360 RF: 3 simvastatin 20 mg tablet 20 mg PO DAILY Qty: 90 RF: 2 escitalopram oxalate 20 mg tablet 20 mg PO DAILY Qty: 90 RF: 1 Trulicity 3 mg/0.5 mL pen injector 3 mg SC QWEEK Qty: 2 RF: 3 Farxiga 10 mg tablet 10 mg PO DAILY Qty: 30 RF: 3 (DME) FreeStyle Lite Strips Strip See Rx Instructions .ROUTE .MEDSUPPLY Qty: 100 RF: 3 (DME) blood-glucose meter [FreeStyle [place]] Kit See Rx Instructions .ROUTE .MEDSUPPLY Qty: 1 RF: 1 Primary Care Provider: Garrick Benson
[2021-01-05 02:58] LABS: Lactic Acid 4.8 mmol/L (0.4-1.9)
--- NOTE | 2021-01-05 03:01 | HP.PCM_ITS ---
HPI - General General Date of Admission: 01/05/21 HPI Narrative ELISA HAN, is a 70 F who presents today originally with suspected stroke. Per family report patient has not been feeling well over the past 2 days and had not been eating or drinking normally. Tonight at approximately 1230 patient's went to wake her and she would not respond. Patient initially was worked up to rule out stroke but upon review of her labs patient was noted to be in DKA with a pH of 6.9, anion gap 32, glucose 410 and acetone level large. Patient received 2 amps of sodium bicarb and was initiated on an insulin drip. [facility] Medical History (Updated 01/05/21 @ 03:08 by EDWIN Enamorado) Anxiety Fracture, fibula Hyperlipemia Hypertension IBS (irritable bowel syndrome) Type 2 diabetes mellitus Home Medications aspirin 81 mg chewable tablet 81 mg PO QDAY 12/26/17 [History Last Taken 01/12/18] calcium carb,cit ER 600 mg-vit D3 12.5 mcg (500 unit) tablet,ext.rel 1 tab PO DAILY 12/26/17 [History Last Taken 01/12/18] dulaglutide 3 mg/0.5 mL subcutaneous pen injector 3 mg SC QWEEK #2 ml 11/24/20 [Rx Last Taken Unknown] blood sugar diagnostic #100 each 12/02/20 [Rx Last Taken Unknown] blood-glucose meter #1 each 12/02/20 [Rx Last Taken Unknown] escitalopram oxalate 20 mg tablet 20 mg PO DAILY #90 tab 12/02/20 [Rx Last Taken Unknown] lisinopril 5 mg tablet 5 mg PO QDAY #90 tab 12/02/20 [Rx Last Taken Unknown] metformin 500 mg tablet 1,000 mg PO BID #360 tab 12/02/20 [Rx Last Taken Unknown] simvastatin 20 mg tablet 20 mg PO DAILY #90 tab 12/02/20 [Rx Last Taken Unknown] dapagliflozin 10 mg tablet 10 mg PO DAILY #30 tablet 12/22/20 [Rx Last Taken Unknown] Allergy/AdvReac Type Severity Reaction Status Date / Time No Known Allergies Allergy Verified 12/02/20 10:05 Family History Mother Myocardial infarction, Onset Age: 76 Father Myocardial infarction, Onset Age: 57 Brother Myocardial infarction Cancer lung Sister Cancer cervical Surgical History History of appendectomy History of hernia repair History of partial hysterectomy History of prolapse of bladder History of tubal ligation Hx of bilateral cataract extraction Social History Smoking Status: Never smoker alcohol intake: never substance use type: does not use what type of physical activity do you participate in: none ROS Review of Systems ROS Unobtainable: due to encephalopathy Vital Signs Vital Signs Vital Signs: 01/05/21 01:06 01/05/21 01:10 01/05/21 01:11 Temperature 96 F L 96.1 F L Temperature Source Temporal Temporal Pulse Rate 116 H 109 H Respiratory Rate 26 H 22 H Blood Pressure 138/74 H 112/50 L Blood Pressure Mean 95 70 Pulse Ox 94 94 100 Oxygen Delivery Method Room Air Nasal Cannula Venturi Mask Oxygen Flow Rate (L/min) 2 2 01/05/21 01:35 01/05/21 01:40 01/05/21 02:06 Temperature Temperature Source Pulse Rate 109 H 110 H 112 H Respiratory Rate 21 H 21 H 21 H Blood Pressure 112/50 L 137/62 H 121/68 H Blood Pressure Mean 70 87 85 Pulse Ox 100 100 98 Oxygen Delivery Method Nasal Cannula Nasal Cannula Nasal Cannula Oxygen Flow Rate (L/min) 2 2 2 01/05/21 02:10 01/05/21 02:28 Temperature 97.5 F L Temperature Source Temporal Pulse Rate 112 H 119 H Respiratory Rate 23 H 20 H Blood Pressure 121/68 H 121/68 H Blood Pressure Mean 85 85 Pulse Ox 98 100 Oxygen Delivery Method Nasal Cannula Nasal Cannula Oxygen Flow Rate (L/min) 2 2 Physical Exam Const alert and oriented x3 General Appearance: cooperative HEENT normocephalic, head/scalp atraumatic and EAC's normal Eyes PERRL and EOMs intact bilaterally Neck supple and no JVD General: trachea midline Lymph Lymphatic: no lymphadenopathy noted Resp normal air movement and clear to auscultation bilaterally Effort and Inspection: tachypneic Cardio regular rhythm, S1 normal heart sound and S2 normal heart sound Rate: tachycardic GI normal to inspection, nondistended, normoactive bowel sounds, soft to palpation and non-tender Extremity normal capillary refill and no clubbing, cyanosis or edema General Extremity: no tenderness to palpation of joints or extremities Skin General Skin Exam: no breakdown and turgor normal Lesions: no lesions Rashes: no rashes Neuro Sensorium / Orientation: lethargic Motor Exam: general weakness Lab / Micro Data Result Diagrams: 01/05/21 01:30 01/05/21 01:30 Labs: Laboratory Results - last 24 hr 01/05/21 01/05/21 01/05/21 01:30 01:30 01:30 WBC 25.2 H RBC 4.83 Hgb 14.1 Hct 46.5 MCV 96.3 MCH 29.2 MCHC 30.3 L RDW Std Deviation 48.1 H RDW Coeff of Vero 13.6 Plt Count 419 MPV 9.9 Immature Gran % (Auto) 5.000 H Neut % (Auto) 70.4 H Lymph % (Auto) 15.2 L [place] % (Auto) 8.9 Eos % (Auto) 0.3 Baso % (Auto) 0.2 Absolute Neuts (auto) 17.7 H Absolute Lymphs (auto) 3.84 Nucleated RBC % 0 Diff Path Review May foll PT 18.2 H INR 1.6 APTT 23.8 L Sodium 141 Potassium 4.6 Chloride 103 Carbon Dioxide 6.0 L* Anion Gap 32 H BUN 28 H Creatinine 1.51 H Estim Creat Clear Calc 32.45 Est GFR (MDRD) Af Amer 44 L Est GFR (MDRD) Non-Af 36 L BUN/Creatinine Ratio 18.5 Glucose 410 H Lactic Acid Calcium 8.7 Troponin I < 0.015 Acetone Level 01/05/21 01/05/21 02:20 02:20 WBC RBC Hgb Hct MCV MCH MCHC RDW Std Deviation RDW Coeff of Vero Plt Count MPV Immature Gran % (Auto) Neut % (Auto) Lymph % (Auto) [place] % (Auto) Eos % (Auto) Baso % (Auto) Absolute Neuts (auto) Absolute Lymphs (auto) Nucleated RBC % Diff Path Review PT INR APTT Sodium Potassium Chloride Carbon Dioxide Anion Gap BUN Creatinine Estim Creat Clear Calc Est GFR (MDRD) Af Amer Est GFR (MDRD) Non-Af BUN/Creatinine Ratio Glucose Lactic Acid 4.8 H* Calcium Troponin I Acetone Level LARGE H Radiology Impression Brain CT 01/05/21 01:10 IMPRESSION: Chronic changes as described. No acute intracranial hemorrhage or space-occupying lesion. Electronically Signed: Rosy Wolfe MD at 1:27 EDT , Service support , ADDENDUM: 01/05/21 0135 IMPRESSION: Chronic changes as described. No acute intracranial hemorrhage or space-occupying lesion. N.B. : The above information has been verbally conveyed by Rosy Wolfe MD to Selvin Adame MD, on 01/05/2021 01:29:00 (ET). Electronically Signed: Rosy Wolfe MD at 1:27 EDT , Service support , Head/Neck CTA 01/05/21 01:19 IMPRESSION: Cannot exclude minimal aneurysmal dilatation involving the anterior communicating artery or distal aspect of the left A1 segment. Otherwise negative CTA Head and neck with contrast with no evidence of significant significant stenosis or occlusion. Electronically Signed: Rosy Wolfe MD at 1:53 EDT , Service support , ADDENDUM: 01/05/21 0204 IMPRESSION: Cannot exclude minimal aneurysmal dilatation involving the anterior communicating artery or distal aspect of the left A1 segment. Otherwise negative CTA Head and neck with contrast with no evidence of significant significant stenosis or occlusion. N.B. : The above information has been verbally conveyed by Rosy Wolfe MD to Selvin Adame MD, on 01/05/2021 01:57:46 (ET). Electronically Signed: Rosy Wolfe MD at 1:53 EDT , Service support , Assessment & Plan Assessment/Plan (1) DKA (diabetic ketoacidoses): Status: Acute Code(s): E11.10 - Type 2 diabetes mellitus with ketoacidosis without coma (2) Type 2 diabetes mellitus: Status: Chronic Code(s): E11.9 - Type 2 diabetes mellitus without complications Qualifiers: Diabetes mellitus nursing home insulin use: without nursing home use Diabetes mellitus complication status: without complication Qualified Code(s): E11.9 - Type 2 diabetes mellitus without complications (3) Hypertension: Status: Chronic Code(s): I10 - Essential (primary) hypertension Qualifiers: Hypertension type: essential hypertension Qualified Code(s): I10 - Essential (primary) hypertension (4) Hyperlipemia: Status: Chronic Code(s): E78.5 - Hyperlipidemia, unspecified Qualifiers: Hyperlipidemia type: mixed hyperlipidemia Qualified Code(s): E78.2 - Mixed hyperlipidemia (5) JOSHUA (obstructive sleep apnea): Status: Chronic Code(s): G47.33 - Obstructive sleep apnea (adult) (pediatric) Plan: 1. Diabetic ketoacidosis secondary to type 2 diabetes mellitus -Admit to ICU for continuous monitoring -Insulin drip 0.1 units/kg/hr per protocol -Blood sugar checks per DKA protocol -BMP every 4 hour -CBC in a.m., hemoglobin A1c ordered stat -N.p.o. while patient on insulin drip -Vital signs per protocol -O2 therapy per protocol -Insulin totals every 6 hours while on drip -Hold home diabetic medications at this time 2. Hypertension -Continue lisinopril 3. Hyperlipidemia -Continue simvastatin 4. Obstructive sleep apnea -O2 per protocol 5. Anxiety -Continue Lexapro DVT prophylaxis-subcu Lovenox This patient was seen by EDWIN Enamorado under the supervision of Dr. Avelar. (6) Anxiety: Status: Acute Code(s): F41.9 - Anxiety disorder, unspecified
[2021-01-05] MEDS: 0.9% Normal Saline 1,000 ML 500 ML IV (03:20)
[2021-01-05 03:32] LABS: Mucous, Urine 0 SEEN /hpf (<or=2+); Red Blood Cells-Urine 0 SEEN /hpf (0-5); Squamous Epithelial Cells - UA 0 SEEN /hpf (5-10)
[2021-01-05 03:41] LABS: Bedside Glucose 389 mg/dL (70-110)
[2021-01-05 03:41] LABS: Bedside Glucose 361 mg/dL (70-110)
--- NOTE | 2021-01-05 03:47 | ED.RN ---
Report called to Екатерина Talavera in ICU and she says we can bring her up
[2021-01-05 03:55] LABS: Color, Urine Yellow (Yellow); Glucose, Dipstick 1000 mg/dl (Normal); Leukocyte Esterase-Dipstick Negative /ul (Negative); Nitrite-Dipstick Negative (Negative); Occult Blood-Urine 10 /ul (Negative); Protein-Dipstick 100 mg/dl (Negative); Specific Gravity, Urine 1.015 (1.002-1.030); Urine Bilirubin Dipstick Negative (Negative); Urine Clarity Clear (Clear); Urine Urobilinogen Normal (Normal)
[2021-01-05 04:01] LABS: Ketone-Dipstick 150 mg/dl (Negative)
[2021-01-05 04:04] LABS: Bacteria RARE /hpf (None Seen); White Blood Cells 0-5 SEEN /hpf (0-5)
[2021-01-05 04:21] LABS: Allen Test POS; Blood Gas Specimen Type ART; O2 Delivery Device Nasal Can; SITE R RADIAL
[2021-01-05 04:31] LABS: pH 6.93 (7.35-7.45)
[2021-01-05 04:34] LABS: pCO2 14.4 mmHg (35-45)
[2021-01-05 04:35] LABS: Base Excess -30 mmol/L (-2 to +2); PO2 133 mmHG (75-100); Total Carbon Dioxide 5 mmol/L
[2021-01-05 04:36] LABS: SO2 96 % (95-99)
[2021-01-05 06:26] LABS: Reflex Lactate? Y
[2021-01-05] MEDS: 0.9% Normal Saline 1,000 ML 250 ML IV (06:27)
--- NOTE | 2021-01-05 06:39 | CON.PCM.CC_ITS ---
Assessment & Plan Assessment/Plan (1) DKA (diabetic ketoacidoses): Status: Acute Code(s): E11.10 - Type 2 diabetes mellitus with ketoacidosis without coma (2) JOSHUA (obstructive sleep apnea): Status: Chronic Code(s): G47.33 - Obstructive sleep apnea (adult) (pediatric) (3) Metabolic encephalopathy: Status: Acute Code(s): G93.41 - Metabolic encephalopathy Plan: RECOMMENDATIONS: 1. Continue judicious supplemental IV fluid hydration. 2. Continue insulin infusion per DKA protocol. 3. Aggressive electrolyte repletion. 4. Obtain blood and urine cultures. 5. Start empiric antimicrobials. We will plan to discontinue in the next 24 to 48 hours if cultures are negative. IMPRESSIONS: 1. Diabetic ketoacidosis The patient appears to have poorly controlled diabetes mellitus on an outpatient basis. We will plan to continue current supportive measures including judicious supplemental IV fluids and continuous insulin infusion per DKA protocol. Electrolytes will be monitored closely and repleated as necessary. Once anion gap has been closed x2, the patient will be transitioned to basal and sliding scale insulin coverage. 2. Acute kidney injury Likely prerenal in etiology. Anticipate improvement with volume expansion. Continue to monitor urine output. No current indication for renal replacement therapy. 3. Encephalopathy Likely metabolic in etiology. If no improvement in next 24 hours in light of her aggressive treatment of her DKA, will consider additional neurologic work- up. 4. Lactic acidemia Likely secondary to intravascular volume depletion with concurrent use of Me tformin. However, given the patient's elevated white blood cell count, tachycardia and tachypnea, will obtain cultures and start her empirically on antimicrobials. Antibiotics can be discontinued in the next 24 to 48 hours if cultures are negative. 5. History of hypertension/hyperlipidemia/anxiety/obstructive sleep apnea Complicates care, management, recovery and prognosis. Continue home medications as indicated. This note was generated with [employer] dictation software. It may contain incorrect words, spelling, and punctuation that were not noted in checking the note before signing. HPI Consult Data Date of Consult: 01/05/21 HPI Narrative Reason for Consultation: Diabetic ketoacidosis, metabolic encephalopathy HPI Narrative: The patient is a 70-year-old female, with a history as outlined below, who presented to the emergency department on January 05 with encephalopathy. The patient had reportedly not been feeling well over the last several days with decreased p.o. intake. There was some initial concern that possibly she had a stroke. The patient does have a history of diabetes mellitus with a hemoglobin A1c of 9.4 from March 2020. On presentation to the emergency department, the patient was noted to have a temperature of 96 ?F. She was tachycardic and tachypneic, but otherwise hemodynamically stable. Laboratory evaluation revealed an elevated white blood cell count to 25,000. Chemistry profile was notable for a bicarbonate of 6.0, anion gap of 32, BUN of 28 and creatinine of 1.5. Glucose was elevated to 410. Arterial blood gas obtained on 3 L/min revealed a pH of 6.93, PCO2 of 14 and PO2 of 133. Large serum acetone level was noted. Lactate was elevated at 4.8. CT head revealed no acute intracranial pathology. CTA head and neck showed no significant stenosis or occlusion. Chest x-ray revealed no acute cardiopulmonary process. The patient received supplemental IV fluid hydration, supplemental bicarbonate and was placed on a continuous insulin infusion. She was subsequently admitted to the medical intensive care unit for management of her diabetic ketoacidosis. [facility] Medical History (Updated 01/05/21 @ 06:[address] Eleazar Benson, DO) Anxiety Fracture, fibula Hyperlipemia Hypertension IBS (irritable bowel syndrome) Type 2 diabetes mellitus Home Medications aspirin 81 mg chewable tablet 81 mg PO QDAY 12/26/17 [History Last Taken 01/12/18] calcium carb,cit ER 600 mg-vit D3 12.5 mcg (500 unit) tablet,ext.rel 1 tab PO DAILY 12/26/17 [History Last Taken 01/12/18] dulaglutide 3 mg/0.5 mL subcutaneous pen injector 3 mg SC QWEEK #2 ml 11/24/20 [Rx Last Taken Unknown] blood sugar diagnostic #100 each 12/02/20 [Rx Last Taken Unknown] blood-glucose meter #1 each 12/02/20 [Rx Last Taken Unknown] escitalopram oxalate 20 mg tablet 20 mg PO DAILY #90 tab 12/02/20 [Rx Last Taken Unknown] lisinopril 5 mg tablet 5 mg PO QDAY #90 tab 12/02/20 [Rx Last Taken Unknown] metformin 500 mg tablet 1,000 mg PO BID #360 tab 12/02/20 [Rx Last Taken Unknown] simvastatin 20 mg tablet 20 mg PO DAILY #90 tab 12/02/20 [Rx Last Taken Unknown] dapagliflozin 10 mg tablet 10 mg PO DAILY #30 tablet 12/22/20 [Rx Last Taken Unknown] Allergy/AdvReac Type Severity Reaction Status Date / Time No Known Allergies Allergy Verified 12/02/20 10:05 Family History Mother Myocardial infarction, Onset Age: 76 Father Myocardial infarction, Onset Age: 57 Brother Myocardial infarction Cancer lung Sister Cancer cervical Surgical History History of appendectomy History of hernia repair History of partial hysterectomy History of prolapse of bladder History of tubal ligation Hx of bilateral cataract extraction Social History Smoking Status: Never smoker alcohol intake: never substance use type: does not use what type of physical activity do you participate in: none ROS Review of Systems ROS Unobtainable: due to encephalopathy Physical Exam Narrative The patient's most recent lab work, culture data and imaging studies have all been personally reviewed. Const no apparent distress General Appearance: cooperative and lethargic HEENT normocephalic and head/scalp atraumatic Mouth: dry mucous membranes Eyes PERRL Resp normal respiratory effort Effort and Inspection: tachypneic Auscultation: Negative for rales, rhonchi or wheezes Cardio S1 normal heart sound and S2 normal heart sound Rate: tachycardic Heart Sounds: Negative for murmur GI normal to inspection, nondistended, normoactive bowel sounds Extremity no clubbing, cyanosis or edema Skin no rashes or lesions noted Neuro CN's II-XII intact bilaterally and no focal motor deficits Psych Mood & Affect: flat affect Lab / Micro Data Result Diagrams: 01/05/21 07:29 01/05/21 11:35 Labs: Laboratory Results - last 24 hr 01/05/21 01/05/21 01/05/21 01:30 01:30 01:30 WBC 25.2 H RBC 4.83 Hgb 14.1 Hct 46.5 MCV 96.3 MCH 29.2 MCHC 30.3 L RDW Std Deviation 48.1 H RDW Coeff of Vero 13.6 Plt Count 419 MPV 9.9 Immature Gran % (Auto) 5.000 H Neut % (Auto) 70.4 H Lymph % (Auto) 15.2 L [place] % (Auto) 8.9 Eos % (Auto) 0.3 Baso % (Auto) 0.2 Absolute Neuts (auto) 17.7 H Absolute Lymphs (auto) 3.84 Nucleated RBC % 0 Diff Path Review May foll PT 18.2 H INR 1.6 APTT 23.8 L Sodium 141 Potassium 4.6 Chloride 103 Carbon Dioxide 6.0 L* Anion Gap 32 H BUN 28 H Creatinine 1.51 H Estim Creat Clear Calc 32.45 Est GFR (MDRD) Af Amer 44 L Est GFR (MDRD) Non-Af 36 L BUN/Creatinine Ratio 18.5 Glucose 410 H Lactic Acid Calcium 8.7 Troponin I < 0.015 Urine Color Urine Clarity Urine pH Ur Specific [place] Urine Protein Urine Glucose (UA) Urine Ketones Urine Occult Blood Urine Nitrite Urine Bilirubin Urine Urobilinogen Ur Leukocyte Esterase Urine RBC Urine WBC Ur Squamous Epith Cells Urine Bacteria Urine Mucus Acetone Level POC Glucose 01/05/21 01/05/21 01/05/21 02:20 02:20 02:45 WBC RBC Hgb Hct MCV MCH MCHC RDW Std Deviation RDW Coeff of Vero Plt Count MPV Immature Gran % (Auto) Neut % (Auto) Lymph % (Auto) [place] % (Auto) Eos % (Auto) Baso % (Auto) Absolute Neuts (auto) Absolute Lymphs (auto) Nucleated RBC % Diff Path Review PT INR APTT Sodium Potassium Chloride Carbon Dioxide Anion Gap BUN Creatinine Estim Creat Clear Calc Est GFR (MDRD) Af Amer Est GFR (MDRD) Non-Af BUN/Creatinine Ratio Glucose Lactic Acid 4.8 H* Calcium Troponin I Urine Color Urine Clarity Urine pH Ur Specific [place] Urine Protein Urine Glucose (UA) Urine Ketones Urine Occult Blood Urine Nitrite Urine Bilirubin Urine Urobilinogen Ur Leukocyte Esterase Urine RBC Urine WBC Ur Squamous Epith Cells Urine Bacteria Urine Mucus Acetone Level LARGE H POC Glucose 389 H 01/05/21 01/05/21 03:20 03:32 WBC RBC Hgb Hct MCV MCH MCHC RDW Std Deviation RDW Coeff of Vero Plt Count MPV Immature Gran % (Auto) Neut % (Auto) Lymph % (Auto) [place] % (Auto) Eos % (Auto) Baso % (Auto) Absolute Neuts (auto) Absolute Lymphs (auto) Nucleated RBC % Diff Path Review PT INR APTT Sodium Potassium Chloride Carbon Dioxide Anion Gap BUN Creatinine Estim Creat Clear Calc Est GFR (MDRD) Af Amer Est GFR (MDRD) Non-Af BUN/Creatinine Ratio Glucose Lactic Acid Calcium Troponin I Urine Color Yellow Urine Clarity Clear Urine pH 5.0 Ur Specific [place] 1.015 Urine Protein 100 H Urine Glucose (UA) 1000 H Urine Ketones 150 A* Urine Occult Blood 10 H Urine Nitrite Negative Urine Bilirubin Negative Urine Urobilinogen Normal Ur Leukocyte Esterase Negative Urine RBC 0 SEEN Urine WBC 0-5 SEEN Ur Squamous Epith Cells 0 SEEN Urine Bacteria RARE Urine Mucus 0 SEEN Acetone Level POC Glucose 361 H ABG Data ABG results: ABG 01/05/21 01:56 Specimen Type ART Sample Site R RADIAL pH 6.93 L* Bicarbonate Actual 3.0 L Total CO2 5 Base Excess -30 L O2 Saturation 96 ABG pCO2 14.4 L* ABG pO2 133 H Matthias Test POS O2 Delivery Device Nasal Can Liter Flow 3.0 Crit Call To/Read Back Yes Blood Gas Notified Whom ED MD Blood Gas Notified Time 0156 Clinical Comments GIVEN TO DR ADAME Radiology Impression Brain CT 01/05/21 01:10 IMPRESSION: Chronic changes as described. No acute intracranial hemorrhage or space-occupying lesion. Electronically Signed: Rosy Wolfe MD at 1:27 EDT , Service support , ADDENDUM: 01/05/21 0135 IMPRESSION: Chronic changes as described. No acute intracranial hemorrhage or space-occupying lesion. N.B. : The above information has been verbally conveyed by Rosy Wolfe MD to Selvin Adame MD, on 01/05/2021 01:29:00 (ET). Electronically Signed: Rosy Wolfe MD at 1:27 EDT , Service support , Head/Neck CTA 01/05/21 01:19 IMPRESSION: Cannot exclude minimal aneurysmal dilatation involving the anterior communicating artery or distal aspect of the left A1 segment. Otherwise negative CTA Head and neck with contrast with no evidence of significant significant stenosis or occlusion. Electronically Signed: Rosy Wolfe MD at 1:53 EDT , Service support , ADDENDUM: 01/05/21 0204 IMPRESSION: Cannot exclude minimal aneurysmal dilatation involving the anterior communicating artery or distal aspect of the left A1 segment. Otherwise negative CTA Head and neck with contrast with no evidence of significant significant stenosis or occlusion. N.B. : The above information has been verbally conveyed by Rosy Wolfe MD to Selvin Adame MD, on 01/05/2021 01:57:46 (ET). Electronically Signed: Rosy Wolfe MD at 1:53 EDT , Service support , Chest X-Ray 01/05/21 02:26 IMPRESSION: No acute cardiopulmonary disease. Electronically Signed: Rosy Wolfe MD at 3:11 EDT , Service support , Charges/Coding Visit Charges Inpatient E&M: 39424 Init Hosp L3
[2021-01-05 06:41] LABS: Bedside Glucose 342 mg/dL (70-110)
[2021-01-05 06:41] LABS: Bedside Glucose 263 mg/dL (70-110)
--- NOTE | 2021-01-05 06:45 | PCM.PN.HOSP ---
Subjective Subjective: Patient with recent admission to the ICU approximately 3 AM with DKA with significant ongoing encephalopathy. Patient will awaken to stimuli and will follow some commands but falls back asleep quickly and is very lethargic. Patient with recent generalized illness, poor oral intake with initial concern for acute stroke however ED evaluation with findings consistent with severe DKA. Patient denies fevers, chills,emesis, abdominal pain, chest pain or dyspnea. Does admit to nausea. Objective Data Objective Data Vital Signs: Vital Signs Temp Pulse Resp BP Pulse Ox 96 F L 107 H 21 H 109/54 L 100 01/05/21 05:00 01/05/21 05:00 01/05/21 05:00 01/05/21 05:00 01/05/21 05:00 Oxygen Flow Rate (L/min) 2 Oxygen Delivery Method Nasal Cannula Weight: 141 lb 1.533 oz Body Mass Index (BMI) 25.8 Finger Stick Blood Glucose 263 Intake & Output: Intake and Output for Last 24 Hours 01/03/21 01/04/21 01/05/21 23:59 23:59 23:59 Intake Total Balance Lab / Micro Data Result Diagrams: 01/05/21 07:29 01/05/21 11:35 Labs: Laboratory Results - last 24 hr 01/05/21 01/05/21 01/05/21 01:30 01:30 01:30 WBC 25.2 H RBC 4.83 Hgb 14.1 Hct 46.5 MCV 96.3 MCH 29.2 MCHC 30.3 L RDW Std Deviation 48.1 H RDW Coeff of Vero 13.6 Plt Count 419 MPV 9.9 Immature Gran % (Auto) 5.000 H Neut % (Auto) 70.4 H Lymph % (Auto) 15.2 L [place] % (Auto) 8.9 Eos % (Auto) 0.3 Baso % (Auto) 0.2 Absolute Neuts (auto) 17.7 H Absolute Lymphs (auto) 3.84 Nucleated RBC % 0 Diff Path Review May foll PT 18.2 H INR 1.6 APTT 23.8 L Sodium 141 Potassium 4.6 Chloride 103 Carbon Dioxide 6.0 L* Anion Gap 32 H BUN 28 H Creatinine 1.51 H Estim Creat Clear Calc 32.45 Est GFR (MDRD) Af Amer 44 L Est GFR (MDRD) Non-Af 36 L BUN/Creatinine Ratio 18.5 Glucose 410 H Lactic Acid Calcium 8.7 Troponin I < 0.015 Urine Color Urine Clarity Urine pH Ur Specific [place] Urine Protein Urine Glucose (UA) Urine Ketones Urine Occult Blood Urine Nitrite Urine Bilirubin Urine Urobilinogen Ur Leukocyte Esterase Urine RBC Urine WBC Ur Squamous Epith Cells Urine Bacteria Urine Mucus Acetone Level POC Glucose 01/05/21 01/05/21 01/05/21 02:20 02:20 02:45 WBC RBC Hgb Hct MCV MCH MCHC RDW Std Deviation RDW Coeff of Vero Plt Count MPV Immature Gran % (Auto) Neut % (Auto) Lymph % (Auto) [place] % (Auto) Eos % (Auto) Baso % (Auto) Absolute Neuts (auto) Absolute Lymphs (auto) Nucleated RBC % Diff Path Review PT INR APTT Sodium Potassium Chloride Carbon Dioxide Anion Gap BUN Creatinine Estim Creat Clear Calc Est GFR (MDRD) Af Amer Est GFR (MDRD) Non-Af BUN/Creatinine Ratio Glucose Lactic Acid 4.8 H* Calcium Troponin I Urine Color Urine Clarity Urine pH Ur Specific [place] Urine Protein Urine Glucose (UA) Urine Ketones Urine Occult Blood Urine Nitrite Urine Bilirubin Urine Urobilinogen Ur Leukocyte Esterase Urine RBC Urine WBC Ur Squamous Epith Cells Urine Bacteria Urine Mucus Acetone Level LARGE H POC Glucose 389 H 01/05/21 01/05/21 01/05/21 03:20 03:32 04:32 WBC RBC Hgb Hct MCV MCH MCHC RDW Std Deviation RDW Coeff of Vero Plt Count MPV Immature Gran % (Auto) Neut % (Auto) Lymph % (Auto) [place] % (Auto) Eos % (Auto) Baso % (Auto) Absolute Neuts (auto) Absolute Lymphs (auto) Nucleated RBC % Diff Path Review PT INR APTT Sodium Potassium Chloride Carbon Dioxide Anion Gap BUN Creatinine Estim Creat Clear Calc Est GFR (MDRD) Af Amer Est GFR (MDRD) Non-Af BUN/Creatinine Ratio Glucose Lactic Acid Calcium Troponin I Urine Color Yellow Urine Clarity Clear Urine pH 5.0 Ur Specific [place] 1.015 Urine Protein 100 H Urine Glucose (UA) 1000 H Urine Ketones 150 A* Urine Occult Blood 10 H Urine Nitrite Negative Urine Bilirubin Negative Urine Urobilinogen Normal Ur Leukocyte Esterase Negative Urine RBC 0 SEEN Urine WBC 0-5 SEEN Ur Squamous Epith Cells 0 SEEN Urine Bacteria RARE Urine Mucus 0 SEEN Acetone Level POC Glucose 361 H 342 H 01/05/21 05:35 WBC RBC Hgb Hct MCV MCH MCHC RDW Std Deviation RDW Coeff of Vero Plt Count MPV Immature Gran % (Auto) Neut % (Auto) Lymph % (Auto) [place] % (Auto) Eos % (Auto) Baso % (Auto) Absolute Neuts (auto) Absolute Lymphs (auto) Nucleated RBC % Diff Path Review PT INR APTT Sodium Potassium Chloride Carbon Dioxide Anion Gap BUN Creatinine Estim Creat Clear Calc Est GFR (MDRD) Af Amer Est GFR (MDRD) Non-Af BUN/Creatinine Ratio Glucose Lactic Acid Calcium Troponin I Urine Color Urine Clarity Urine pH Ur Specific [place] Urine Protein Urine Glucose (UA) Urine Ketones Urine Occult Blood Urine Nitrite Urine Bilirubin Urine Urobilinogen Ur Leukocyte Esterase Urine RBC Urine WBC Ur Squamous Epith Cells Urine Bacteria Urine Mucus Acetone Level POC Glucose 263 H ABG Data ABG results: ABG 01/05/21 01:56 Specimen Type ART Sample Site R RADIAL pH 6.93 L* Bicarbonate Actual 3.0 L Total CO2 5 Base Excess -30 L O2 Saturation 96 ABG pCO2 14.4 L* ABG pO2 133 H Matthias Test POS O2 Delivery Device Nasal Can Liter Flow 3.0 Crit Call To/Read Back Yes Blood Gas Notified Whom ED MD Blood Gas Notified Time 0156 Clinical Comments GIVEN TO DR ADAME Radiography Diagnostic Testing: Radiology Impression Brain CT 01/05/21 01:10 IMPRESSION: Chronic changes as described. No acute intracranial hemorrhage or space-occupying lesion. Electronically Signed: Rosy Wolfe MD at 1:27 EDT , Service support , ADDENDUM: 01/05/21 0132 IMPRESSION: Chronic changes as described. No acute intracranial hemorrhage or space-occupying lesion. N.B. : The above information has been verbally conveyed by Rosy Wolfe MD to Selvin Adame MD, on 01/05/2021 01:29:00 (ET). Electronically Signed: Rosy Wolfe MD at 1:27 EDT , Service support , Head/Neck CTA 01/05/21 01:19 IMPRESSION: Cannot exclude minimal aneurysmal dilatation involving the anterior communicating artery or distal aspect of the left A1 segment. Otherwise negative CTA Head and neck with contrast with no evidence of significant significant stenosis or occlusion. Electronically Signed: Rosy Wolfe MD at 1:53 EDT , Service support , ADDENDUM: 01/05/21 0204 IMPRESSION: Cannot exclude minimal aneurysmal dilatation involving the anterior communicating artery or distal aspect of the left A1 segment. Otherwise negative CTA Head and neck with contrast with no evidence of significant significant stenosis or occlusion. N.B. : The above information has been verbally conveyed by Rosy Wolfe MD to Selvin Adame MD, on 01/05/2021 01:57:46 (ET). Electronically Signed: Rosy Wolfe MD at 1:53 EDT , Service support , Chest X-Ray 01/05/21 02:26 IMPRESSION: No acute cardiopulmonary disease. Electronically Signed: Rosy Wolfe MD at 3:11 EDT , Service support , Physical Exam Narrative Physical Examination: General: Patient seated upright in the ICU bed, fatigued and lethargic, will awaken to stimuli and follows some commands but not answering orientation questions, remains cooperative, NAD. Skin: normal color, turgor, no icterus, cyanosis. HEENT: AT/NC, EOMI, PERRLA, dry MM. Lungs: Diminished breath sounds, greater bases, mildly decreased effort with no evidence of any respiratory distress, no rales, ronchi or wheezing. Heart: Mildly tachycardic with regular rhythm; no gallop, rub audible. Abdomen: soft, mild generalized discomfort with palpation but no rebound or guarding, ND, distant normal BS. Extremities: no cyanosis, clubbing, or edema. Neurological: Patient seated upright in the ICU bed, fatigued and lethargic, will awaken to stimuli and follows some commands but not answering orientation questions, remains cooperative; cognitive function not baseline intact; pupils equally reactive to light and accomodation; cranial nerves grossly normal however difficult exam given lethargy, moving all 4 extremities but again very lethargic and fatigued, severely global decrease secondary to acute presentation. Psychiatric: affect appears fatigued, lethargic, no acute evidence of depressive or anxiety feelings. Assessment & Plan Assessment/Plan (1) Metabolic encephalopathy: Status: Acute Code(s): G93.41 - Metabolic encephalopathy (2) DKA (diabetic ketoacidoses): Status: Acute Code(s): E11.10 - Type 2 diabetes mellitus with ketoacidosis without coma (3) Hypertension: Status: Chronic Code(s): I10 - Essential (primary) hypertension Qualifiers: Hypertension type: essential hypertension Qualified Code(s): I10 - Essential (primary) hypertension (4) Hyperlipemia: Status: Chronic Code(s): E78.5 - Hyperlipidemia, unspecified Qualifiers: Hyperlipidemia type: mixed hyperlipidemia Qualified Code(s): E78.2 - Mixed hyperlipidemia (5) JOSHUA (obstructive sleep apnea): Status: Chronic Code(s): G47.33 - Obstructive sleep apnea (adult) (pediatric) (6) Essential tremor: Status: Chronic Code(s): G25.0 - Essential tremor (7) Anxiety: Status: Acute Code(s): F41.9 - Anxiety disorder, unspecified Plan: The patient is a 70 y/o F w/ PMHx: Diabetes mellitus type II, HTN, HLD, IBS, JOSHUA on CPAP, Anxiety and Depression, Essential tremor history who presents to the [facility] ED on 01/05/21 with history of onset fatigue, malaise with increased confusion and family concern for possible stroke prompting ED evaluation with the ED work-up concerning for DKA. 1. Acute metabolic encephalopathy with lactic acidosis secondary to acute DKA with underlying history of poorly controlled diabetes mellitus type II: Patient admitted to the ICU, continued on insulin drip, will continue to check serial K+, glucose w/ IVF changes pending these levels, serial chemistry, obtain mag, phos daily w/ repletion as needed, transition to home SC regimen when gap closed w/ overlap on drip, nutrition consultation. Encouraged diet and insulin regimen compliance. HgBA1c requested. We will continue to trend lactic acid likely secondary to acute presentation with volume depletion and medications. 2. Leukocytosis with as noted lactic acidosis: Likely primarily contributor acute DKA with Metformin concurrent usage and volume depletion however patient with significant leukocytosis with tachycardia, tachypnea upon ED presentation, UA not marked appearing, chest x-ray not marked appearing, blood cultures pending and per discussion with allocations clerk patient empirically started on broad-spectrum antibiotics with plan de-escalation if blood cultures returned negative over the next 48 hours. 3. Acute kidney injury: Secondary to acute presentation #1. Admission BUN/Cr 28/1.51, prior baseline creatinine noted to be 0.7. Will continue to aggressively hydrate, hold nephrotoxic medications and trend BMPs per DKA protocol as noted. If no improvement would plan FeNa assessment as well as consideration renal ultrasound. 4. Hypertension: Holding patient lisinopril given TIM, resume once appropriate, in the interim PRN hydralazine. 5. Hyperlipidemia: Continue home statin regimen. 6. Anxiety and depression: We will continue patient home escitalopram regimen. 7. JOSHUA: CPAP nightly. 8. Essential tremor: Not on regimen, defer to outpatient. 9. DVT prophylaxis: SCDs, Lovenox however if renal function worsens may need to consider alter dosage. 10. CODE status: DNR-CCA, no intubation status. Procedures Hospitalists Procedures: Other Procedure - See Report (Not billable--admitted after midnight.)
[2021-01-05] MEDS: Dext 5%-0.45% NS 1,000 ML 150 ML IV ×2 (07:35→15:05)
[2021-01-05 07:47] LABS: Absolute Lymphocyte Count 3.91 X10^3/uL (0.83-4.51); Absolute Neutrophil Count 22.3 X10^3/uL (2.0-7.7); Basophil# 0.19 X10^3/uL; Basophil% 0.6 % (0-1); Eosinophil# 0.01 X10^3/uL; Hemoglobin 16.8 g/dL (12.0-15.0); Lymphocyte # 3.91 X10^3/ul (0.83-4.51); Lymphocyte % 12.9 % (19-41); Mean Corp Hgb Conc 30.2 g/dL (32-36); Mean Corpuscular Hgb 28.6 pg (27.0-32.0); Mean Corpuscular Volume 94.7 fL (81-99); Monocyte# 2.78 X10^3/uL; Monocyte% 9.2 % (0-10); NRBC Flagged by Analyzer 0 % (0-5); Neutrophil # 22.32 X10^3/uL (2.7-7.7); Neutrophil % 73.5 % (47-70); POSITIVE COUNT YES; POSITIVE DIFFERENTIAL YES; Platelet Count 343 K/mm3 (150-450); RBC Distribution Width CV 13.8 % (11.6-14.6); RBC Distribution Width SD 48.7 fl (35.1-43.9); Red Blood Count 5.88 M/mm3 (4.2-5.4)
[2021-01-05 07:51] LABS: Hematocrit 55.7 % (37-47)
[2021-01-05 07:52] LABS: White Blood Count 30.4 K/mm3 (4.4-11.0)
[2021-01-05 07:53] LABS: Differential Indicated SCAN CRITERIA MET
[2021-01-05 08:11] LABS: Phosphorus 3.4 mg/dL (2.5-4.9)
[2021-01-05 08:18] LABS: Platelet Estimate ADEQUATE (ADEQ); Reactive Lymphocyte RARE
[2021-01-05 08:19] LABS: Anion Gap 30 (5-15); BUN 27 mg/dL (7-18); BUN/Creat Ratio 18.6 RATIO (10-20); Calcium,Total 8.9 mg/dL (8.5-10.1); Chloride 114 mmol/L (98-107); Creatinine, Serum 1.45 mg/dL (0.55-1.02); EST Glomerular Filtration Rate 38 mL/min (>60); Est Glom Filt Rate - Afr Amer 46 mL/min (>60); Estimated Creatinine Clearance 28.55 ml/min; Glucose 240 mg/dL (74-106); Lactic Acid 2.4 mmol/L (0.4-1.9); Magnesium 2.4 mg/dL (1.6-2.6); Potassium 3.8 mmol/L (3.5-5.1); Sodium Level 149 mmol/L (136-145)
[2021-01-05 08:46] LABS: Bedside Glucose 231 mg/dL (70-110)
[2021-01-05 08:46] LABS: Bedside Glucose 231 mg/dL (70-110)
[2021-01-05 08:46] LABS: Bedside Glucose 249 mg/dL (70-110)
--- NOTE | 2021-01-05 10:12 | CASEMGMT ---
This RN CM participated in ICU multidisciplinary rounds. Pt is on insulin gtt, blood cx's pending, and negative CVA work up per nurse. Pt is still on 2L but nursing to wean pt off at this time. CM to follow PT/OT evals and any further discharge planning/needs. S[place]en RN CM
[2021-01-05 10:14] LABS: Hemoglobin A1c 9.5 % (3.8-5.6)
[2021-01-05] MEDS: Enoxaparin 40 MG/0.4 ML Syringe SC (10:34)
[2021-01-05 10:35] LABS: Bedside Glucose 245 mg/dL (70-110)
[2021-01-05 10:35] LABS: Bedside Glucose 232 mg/dL (70-110)
--- NOTE | 2021-01-05 11:21 | CASEMGMT ---
This RN CM to room to complete assessment and pt is sleeping without distress and does not awaken to knock on door or verbal stimuli. CM to attempt again later. S[place]en RN CM
[2021-01-05 12:04] LABS: Anion Gap 21 (5-15); BUN 29 mg/dL (7-18); BUN/Creat Ratio 21.2 RATIO (10-20); Calcium,Total 8.6 mg/dL (8.5-10.1); Chloride 120 mmol/L (98-107); Creatinine, Serum 1.37 mg/dL (0.55-1.02); EST Glomerular Filtration Rate 41 mL/min (>60); Est Glom Filt Rate - Afr Amer 49 mL/min (>60); Estimated Creatinine Clearance 30.22 ml/min; Glucose 284 mg/dL (74-106); Potassium 3.4 mmol/L (3.5-5.1); Sodium Level 150 mmol/L (136-145)
[2021-01-05 12:35] LABS: Bedside Glucose 235 mg/dL (70-110)
[2021-01-05 13:11] LABS: Pathologist Review Reviewed
[2021-01-05 13:12] LABS: Pathologist Review Reviewed
--- NOTE | 2021-01-05 13:42 | CASEMGMT ---
ELA MUKHERJEE assessment: Phone interview with pt's d/t pt lethargy today for initial transition planning/care coordination assessment. RN LONNY introduced self and role at [facility], voices understanding and consents to assessment. Per , pt's PCP has been adjusting DM meds for 3-4months and pt has not felt good for days. Pt is on room air and sleeping without distress. is A/Ox4 and answers all questions appropriately. Care providers, pharmacy, and demographics verified. Presentation: N/Vx12 hrs, family states decreased LOC since 2100 Admitting dx: DKA PCP: [facility] Specialists: Per , no current specialists. 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 Hernandez to at this time. Per , someone else had recommended her to them as well. Pamphlet for Dr. Hernandez left at pt bedside and RN aware. [facility] Insurance: MCR A/B, [employer] Prescription Benefit: MCR D Living Will/HPOA: Per , pt does not have LW/HPOA and declines AD info. LNOK: Gordy Wade, ; Cristhian Wade, son; Meagan Wade, [id number] Living Arrangements: Pt lives with husbandin 1 story home with 3 steps in and states no concerns at home. Pt is independent with ADL's. Transportation: Pt normally drives self and states no transportation concerns. DME/HHC: Pt has a walker but does not use and states no need for any further DME. Pt has no hx of HHC or SNF in the past. states no concerns with pt coming home at discharge. Pt is retired. Pt does not smoke cigarettes or drink ETOH. Pt voices no further concerns/needs. CM to follow for therapy evals and any further discharge planning/needs. Advised to ask for CM if any further questions/concerns/needs arise, voices understanding. Pt Goal: Home Plan[place] ELA MUKHERJEE
[2021-01-05 13:46] LABS: Bedside Glucose 251 mg/dL (70-110)
[2021-01-05 13:55] LABS: Bedside Glucose 239 mg/dL (70-110)
[2021-01-05 15:06] LABS: Bedside Glucose 225 mg/dL (70-110)
[2021-01-05 16:05] LABS: Anion Gap 13 (5-15); BUN 26 mg/dL (7-18); BUN/Creat Ratio 17.9 RATIO (10-20); Calcium,Total 8.8 mg/dL (8.5-10.1); Chloride 123 mmol/L (98-107); Creatinine, Serum 1.45 mg/dL (0.55-1.02); EST Glomerular Filtration Rate 38 mL/min (>60); Est Glom Filt Rate - Afr Amer 46 mL/min (>60); Estimated Creatinine Clearance 28.55 ml/min; Glucose 244 mg/dL (74-106); Potassium 3.1 mmol/L (3.5-5.1); Sodium Level 154 mmol/L (136-145)
[2021-01-05 16:10] LABS: Bedside Glucose 186 mg/dL (70-110)
[2021-01-05] MEDS: Potassium Chloride 10mEq/100mL 10 MEQ/100 ML IV.SOLN. 100 MEQ IV BOLUS ×5 (17:20→23:16)
[2021-01-05] MEDS: 0.9% Saline Lock 10 ML Syringe IV (17:22)
[2021-01-05 18:20] LABS: Bedside Glucose 221 mg/dL (70-110)
[2021-01-05 18:20] LABS: Bedside Glucose 220 mg/dL (70-110)
[2021-01-05 20:40] LABS: Anion Gap 8 (5-15); BUN 19 mg/dL (7-18); BUN/Creat Ratio 17.8 RATIO (10-20); Chloride 131 mmol/L (98-107); Creatinine, Serum 1.07 mg/dL (0.55-1.02); EST Glomerular Filtration Rate 54 mL/min (>60); Est Glom Filt Rate - Afr Amer 65 mL/min (>60); Estimated Creatinine Clearance 38.69 ml/min; Glucose 234 mg/dL (74-106); Potassium 2.6 mmol/L (3.5-5.1); Sodium Level 158 mmol/L (136-145)
[2021-01-05] MEDS: Potassium Chloride 40 MEQ in Dext 5%-0.45% NS 1,000 ML 150 MEQ IV (22:01)
[2021-01-05 22:10] LABS: Bedside Glucose 200 mg/dL (70-110)
[2021-01-05 22:10] LABS: Bedside Glucose 177 mg/dL (70-110)
[2021-01-05 22:10] LABS: Bedside Glucose 204 mg/dL (70-110)
[2021-01-06] VITALS (20 sets, daily range): BP systolic 74–151; BP diastolic 43–78; PULSE 71–99; RESP 15–20; TEMP 36.5–37.8; O2SAT 97–100
[2021-01-06] MEDS: Potassium Chloride 10mEq/100mL 10 MEQ/100 ML IV.SOLN. 100 MEQ IV BOLUS (00:20)
[2021-01-06 00:35] LABS: Bedside Glucose 169 mg/dL (70-110)
[2021-01-06 00:35] LABS: Bedside Glucose 129 mg/dL (70-110)
[2021-01-06 02:09] LABS: Anion Gap 8 (5-15); BUN 16 mg/dL (7-18); Calcium,Total 7.5 mg/dL (8.5-10.1); Chloride 129 mmol/L (98-107); Creatinine, Serum 0.94 mg/dL (0.55-1.02); EST Glomerular Filtration Rate 62 mL/min (>60); Est Glom Filt Rate - Afr Amer 75 mL/min (>60); Estimated Creatinine Clearance 44.04 ml/min; Glucose 184 mg/dL (74-106); Potassium 4.3 mmol/L (3.5-5.1); Sodium Level 154 mmol/L (136-145)
[2021-01-06] MEDS: Potassium Chloride 40 MEQ in Dext 5%-0.45% NS 1,000 ML 150 MEQ IV ×3 (04:50→22:21)
[2021-01-06 06:06] LABS: Absolute Lymphocyte Count 0.78 X10^3/uL (0.83-4.51); Absolute Neutrophil Count 8.4 X10^3/uL (2.0-7.7); Basophil# 0.01 X10^3/uL; Basophil% 0.1 % (0-1); Hematocrit 37.3 % (37-47); Hemoglobin 12.3 g/dL (12.0-15.0); Lymphocyte # 0.78 X10^3/ul (0.83-4.51); Lymphocyte % 7.9 % (19-41); Mean Corpuscular Hgb 29.1 pg (27.0-32.0); Mean Corpuscular Volume 88.4 fL (81-99); Mean Platelet Vol. 9.5 fl (6.2-12.0); Monocyte# 0.66 X10^3/uL; Monocyte% 6.7 % (0-10); NRBC Flagged by Analyzer 0 % (0-5); Neutrophil # 8.37 X10^3/uL (2.7-7.7); Neutrophil % 84.7 % (47-70); Platelet Count 197 K/mm3 (150-450); RBC Distribution Width CV 14.4 % (11.6-14.6); RBC Distribution Width SD 46.3 fl (35.1-43.9); Red Blood Count 4.22 M/mm3 (4.2-5.4); White Blood Count 9.9 K/mm3 (4.4-11.0)
--- NOTE | 2021-01-06 06:27 | PN.HOSP_ITS ---
Subjective Subjective: Patient overnight with improvement of her mental status and closure of her anion gap with transition to subcu insulin and initiation of oral intake. Patient did have occasional low-grade temperature overnight but otherwise clinically improved. Patient denies fevers, chills, nausea, emesis, abdominal pain, chest pain or dyspnea. Objective Data Objective Data Vital Signs: Vital Signs Temp Pulse Resp BP Pulse Ox 99.9 F H 87 20 H 133/60 H 99 01/06/21 06:00 01/06/21 06:00 01/06/21 06:00 01/06/21 06:00 01/06/21 06:00 Oxygen Flow Rate (L/min) 2 Oxygen Delivery Method Room Air Weight: 141 lb 1.533 oz Body Mass Index (BMI) 25.8 Finger Stick Blood Glucose 129 Intake & Output: Intake and Output for Last 24 Hours 01/04/21 01/05/21 01/06/21 23:59 23:59 23:59 Intake Total 5001.33 / 5448.83 1420.0 / 1420.0 Output Total 2150 / 2850 700 / 700 Balance 2851.33 / 2598.83 720.0 / 720.0 Lab / Micro Data Result Diagrams: 01/06/21 06:00 01/06/21 06:00 Labs: Laboratory Results - last 24 hr 01/05/21 01/05/21 01/05/21 01:30 04:32 05:35 WBC RBC Hgb Hct MCV MCH MCHC RDW Std Deviation RDW Coeff of Vero Plt Count MPV Immature Gran % (Auto) Neut % (Auto) Lymph % (Auto) [place] % (Auto) Eos % (Auto) Baso % (Auto) Absolute Neuts (auto) Absolute Lymphs (auto) Nucleated RBC % Diff Path Review Reviewed Reactive Lymphocytes Platelet Estimate Sodium Potassium Chloride Carbon Dioxide Anion Gap BUN Creatinine Estim Creat Clear Calc Est GFR (MDRD) Af Amer Est GFR (MDRD) Non-Af BUN/Creatinine Ratio Glucose Hemoglobin A1c Lactic Acid Calcium Phosphorus Magnesium POC Glucose 342 H 263 H 01/05/21 01/05/21 01/05/21 06:43 07:20 07:20 WBC RBC Hgb Hct MCV MCH MCHC RDW Std Deviation RDW Coeff of Vero Plt Count MPV Immature Gran % (Auto) Neut % (Auto) Lymph % (Auto) [place] % (Auto) Eos % (Auto) Baso % (Auto) Absolute Neuts (auto) Absolute Lymphs (auto) Nucleated RBC % Diff Path Review Reactive Lymphocytes Platelet Estimate Sodium 149 H Potassium 3.8 Chloride 114 H Carbon Dioxide 5.0 L* Anion Gap 30 H BUN 27 H Creatinine 1.45 H Estim Creat Clear Calc 28.55 Est GFR (MDRD) Af Amer 46 L Est GFR (MDRD) Non-Af 38 L BUN/Creatinine Ratio 18.6 Glucose 240 H Hemoglobin A1c 9.5 H Lactic Acid Calcium 8.9 Phosphorus Magnesium 2.4 POC Glucose 249 H 01/05/21 01/05/21 01/05/21 07:20 07:20 07:28 WBC RBC Hgb Hct MCV MCH MCHC RDW Std Deviation RDW Coeff of Vero Plt Count MPV Immature Gran % (Auto) Neut % (Auto) Lymph % (Auto) [place] % (Auto) Eos % (Auto) Baso % (Auto) Absolute Neuts (auto) Absolute Lymphs (auto) Nucleated RBC % Diff Path Review Reactive Lymphocytes Platelet Estimate Sodium Potassium Chloride Carbon Dioxide Anion Gap BUN Creatinine Estim Creat Clear Calc Est GFR (MDRD) Af Amer Est GFR (MDRD) Non-Af BUN/Creatinine Ratio Glucose Hemoglobin A1c Lactic Acid 2.4 H* Calcium Phosphorus 3.4 Magnesium POC Glucose 231 H 01/05/21 01/05/21 01/05/21 07:29 08:39 09:48 WBC 30.4 H* RBC 5.88 H Hgb 16.8 H Hct 55.7 H MCV 94.7 MCH 28.6 MCHC 30.2 L RDW Std Deviation 48.7 H RDW Coeff of Vero 13.8 Plt Count 343 MPV 10.0 Immature Gran % (Auto) 3.800 H Neut % (Auto) 73.5 H Lymph % (Auto) 12.9 L [place] % (Auto) 9.2 Eos % (Auto) 0.0 Baso % (Auto) 0.6 Absolute Neuts (auto) 22.3 H Absolute Lymphs (auto) 3.91 Nucleated RBC % 0 [address] Review Reviewed Reactive Lymphocytes RARE Platelet Estimate ADEQUATE Sodium Potassium Chloride Carbon Dioxide Anion Gap BUN Creatinine Estim Creat Clear Calc Est GFR (MDRD) Af Amer Est GFR (MDRD) Non-Af BUN/Creatinine Ratio Glucose Hemoglobin A1c Lactic Acid Calcium Phosphorus Magnesium POC Glucose 231 H 232 H 01/05/21 01/05/21 01/05/21 10:30 11:35 11:35 WBC RBC Hgb Hct MCV MCH MCHC RDW Std Deviation RDW Coeff of Vero Plt Count MPV Immature Gran % (Auto) Neut % (Auto) Lymph % (Auto) [place] % (Auto) Eos % (Auto) Baso % (Auto) Absolute Neuts (auto) Absolute Lymphs (auto) Nucleated RBC % Diff Path Review Reactive Lymphocytes Platelet Estimate Sodium 150 H Potassium 3.4 L Chloride 120 H Carbon Dioxide 9.0 L* Anion Gap 21 H BUN 29 H Creatinine 1.37 H Estim Creat Clear Calc 30.22 Est GFR (MDRD) Af Amer 49 L Est GFR (MDRD) Non-Af 41 L BUN/Creatinine Ratio 21.2 H Glucose 284 H Hemoglobin A1c Lactic Acid Calcium 8.6 Phosphorus Magnesium POC Glucose 245 H 251 H 01/05/21 01/05/21 01/05/21 12:32 13:49 14:58 WBC RBC Hgb Hct MCV MCH MCHC RDW Std Deviation RDW Coeff of Vero Plt Count MPV Immature Gran % (Auto) Neut % (Auto) Lymph % (Auto) [place] % (Auto) Eos % (Auto) Baso % (Auto) Absolute Neuts (auto) Absolute Lymphs (auto) Nucleated RBC % Diff Path Review Reactive Lymphocytes Platelet Estimate Sodium Potassium Chloride Carbon Dioxide Anion Gap BUN Creatinine Estim Creat Clear Calc Est GFR (MDRD) Af Amer Est GFR (MDRD) Non-Af BUN/Creatinine Ratio Glucose Hemoglobin A1c Lactic Acid Calcium Phosphorus Magnesium POC Glucose 235 H 239 H 225 H 01/05/21 01/05/21 01/05/21 15:35 16:02 17:26 WBC RBC Hgb Hct MCV MCH MCHC RDW Std Deviation RDW Coeff of Vero Plt Count MPV Immature Gran % (Auto) Neut % (Auto) Lymph % (Auto) [place] % (Auto) Eos % (Auto) Baso % (Auto) Absolute Neuts (auto) Absolute Lymphs (auto) Nucleated RBC % Diff Path Review Reactive Lymphocytes Platelet Estimate Sodium 154 H Potassium 3.1 L Chloride 123 H Carbon Dioxide 18.0 L Anion Gap 13 BUN 26 H Creatinine 1.45 H Estim Creat Clear Calc 28.55 Est GFR (MDRD) Af Amer 46 L Est GFR (MDRD) Non-Af 38 L BUN/Creatinine Ratio 17.9 Glucose 244 H Hemoglobin A1c Lactic Acid Calcium 8.8 Phosphorus Magnesium POC Glucose 186 H 220 H 01/05/21 01/05/21 01/05/21 18:12 19:03 20:05 WBC RBC Hgb Hct MCV MCH MCHC RDW Std Deviation RDW Coeff of Vero Plt Count MPV Immature Gran % (Auto) Neut % (Auto) Lymph % (Auto) [place] % (Auto) Eos % (Auto) Baso % (Auto) Absolute Neuts (auto) Absolute Lymphs (auto) Nucleated RBC % Diff Path Review Reactive Lymphocytes Platelet Estimate Sodium 158 H Potassium 2.6 L* Chloride 131 H* Carbon Dioxide 19.0 L Anion Gap 8 BUN 19 H Creatinine 1.07 H Estim Creat Clear Calc 38.69 Est GFR (MDRD) Af Amer 65 Est GFR (MDRD) Non-Af 54 L BUN/Creatinine Ratio 17.8 Glucose 234 H Hemoglobin A1c Lactic Acid Calcium 7.0 L Phosphorus Magnesium POC Glucose 221 H 200 H 01/05/21 01/05/21 01/05/21 20:11 20:59 22:08 WBC RBC Hgb Hct MCV MCH MCHC RDW Std Deviation RDW Coeff of Vero Plt Count MPV Immature Gran % (Auto) Neut % (Auto) Lymph % (Auto) [place] % (Auto) Eos % (Auto) Baso % (Auto) Absolute Neuts (auto) Absolute Lymphs (auto) Nucleated RBC % Diff Path Review Reactive Lymphocytes Platelet Estimate Sodium Potassium Chloride Carbon Dioxide Anion Gap BUN Creatinine Estim Creat Clear Calc Est GFR (MDRD) Af Amer Est GFR (MDRD) Non-Af BUN/Creatinine Ratio Glucose Hemoglobin A1c Lactic Acid Calcium Phosphorus Magnesium POC Glucose 204 H 177 H 169 H 01/05/21 01/06/21 01/06/21 23:23 01:40 06:00 WBC 9.9 RBC 4.22 Hgb 12.3 Hct 37.3 MCV 88.4 D MCH 29.1 MCHC 33.0 D RDW Std Deviation 46.3 H RDW Coeff of Vero 14.4 Plt Count 197 MPV 9.5 Immature Gran % (Auto) 0.600 Neut % (Auto) 84.7 H Lymph % (Auto) 7.9 L [place] % (Auto) 6.7 Eos % (Auto) 0.0 Baso % (Auto) 0.1 Absolute Neuts (auto) 8.4 H Absolute Lymphs (auto) 0.78 L Nucleated RBC % 0 [address] Review Reactive Lymphocytes Platelet Estimate Sodium 154 H Potassium 4.3 Chloride 129 H* Carbon Dioxide 17.0 L Anion Gap 8 BUN 16 Creatinine 0.94 Estim Creat Clear Calc 44.04 Est GFR (MDRD) Af Amer 75 Est GFR (MDRD) Non-Af 62 BUN/Creatinine Ratio 17.0 Glucose 184 H Hemoglobin A1c Lactic Acid Calcium 7.5 L Phosphorus Magnesium POC Glucose 129 H Physical Exam Narrative Physical Examination: General: awake, alert, oriented to self, place and some recent events, mildly tremulous which she notes is chronic, remains cooperative, seated upright in the ICU bed in no apparent distress. Skin: normal color, turgor, no icterus, cyanosis. HEENT: AT/NC, EOMI, PERRLA, moderately dry MM. Lungs: Diminished breath sounds, greater bases, appropriate effort, no rales, ronchi or wheezing. Heart: Regular rate and rhythm; no gallop, rub audible. Abdomen: soft, NTTP, ND, mildly hyperactive BS. Extremities: no cyanosis, clubbing, or edema. Neurological: patient awake, alert, oriented as noted; cognitive function significantly improved, suspect nearing baseline intact; pupils equally reactive to light and accomodation; cranial nerves II-XII grossly normal, moving all 4 extremities, no focal deficits, strength moderately global decrease secondary to acute recent events, mildly tremulous which she notes is chronic. Psychiatric: affect appears flat, no acute evidence of depressive or anxiety feelings. Assessment & Plan Assessment/Plan (1) Metabolic encephalopathy: Status: Acute Code(s): G93.41 - Metabolic encephalopathy (2) DKA (diabetic ketoacidoses): Status: Acute Code(s): E11.10 - Type 2 diabetes mellitus with ketoacidosis without coma (3) Hypertension: Status: Chronic Code(s): I10 - Essential (primary) hypertension Qualifiers: Hypertension type: essential hypertension Qualified Code(s): I10 - Essential (primary) hypertension (4) Hyperlipemia: Status: Chronic Code(s): E78.5 - Hyperlipidemia, unspecified Qualifiers: Hyperlipidemia type: mixed hyperlipidemia Qualified Code(s): E78.2 - Mixed hyperlipidemia (5) JOSHUA (obstructive sleep apnea): Status: Chronic Code(s): G47.33 - Obstructive sleep apnea (adult) (pediatric) (6) Essential tremor: Status: Chronic Code(s): G25.0 - Essential tremor (7) Anxiety: Status: Acute Code(s): F41.9 - Anxiety disorder, unspecified Plan: The patient is a 70 y/o F w/ PMHx: Diabetes mellitus type II, HTN, HLD, IBS, JOSHUA on CPAP, Anxiety and Depression, Essential tremor history who presents to the [facility] ED on 01/05/21 with history of onset fatigue, malaise with increased confusion and family concern for possible stroke prompting ED evaluation with the ED work- up concerning for DKA. 1. Acute metabolic encephalopathy with lactic acidosis secondary to acute DKA with underlying history of poorly controlled diabetes mellitus type II: Patient admitted to the ICU, initiated in the ED and continued on insulin drip until anion gap closure with 01/06/2021 transition to subcu insulin with increase to lantus 10 u BID with overlapping insulin sliding scale and Accu-Cheks, during admission maintained on broad-spectrum antibiotic therapy given initial significant leukocytosis however has corrected 01/06/2021 WBC 9.9 and awaiting cultures to de-escalate off antibiotic therapy all the do suspect likely all associate with DKA presentation, sodium and chloride have risen likely secondary to aggressive hydration, 01/06/2021 sodium 153, chloride 127, IV fluids have since been held. Hemoglobin A1c 9.5%, most recently 03/17/2020 9.4%, clearly unchanged. Nutrition consulted for education and teaching. Given clinical resolution of DKA will transition to PCU status 01/06/21. 2. Leukocytosis with as noted lactic acidosis: Likely primarily contributor acute DKA with Metformin concurrent usage and volume depletion however patient with significant leukocytosis with tachycardia, tachypnea upon ED presentation. Low grade T as noted overnight 01/05-01/06/21 but since improved. UA not marked appearing, chest x-ray not marked appearing. 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 3. Acute kidney injury: Secondary to acute presentation #1. Admission BUN/Cr 28/1.51, prior baseline creatinine noted to be 0.7, given #1 also patient aggressively hydrate, temporarily held nephrotoxic medications, 01/06/21 BUN/Cr 14/0.96, resolving. 4. Hypertension: Given near resolved TIM, will restart patient lisinopril rosanna men, PRN hydralazine. 5. Hyperlipidemia: Continue home statin regimen. 6. Anxiety and depression: We will continue patient home escitalopram regimen. 7. JOSHUA: CPAP nightly. 8. Essential tremor: Not on regimen, defer to outpatient. 9. DVT prophylaxis: SCDs, Lovenox however if renal function worsens may need to consider alter dosage. 10. CODE status: DNR-CCA, no intubation status. Visit Charges Inpatient E&M: 14767 Subs Hosp L3
[2021-01-06 06:35] LABS: ALB/GLOB Ratio 1.1 RATIO (0.9-2.4); AST(SGOT) 16 U/L (15-37); Alanine Aminotransfer ALT/SGPT 10 U/L (13-56); Albumin, Serum 2.9 g/dL (3.2-5.0); Alkaline Phosphatase 77 U/L (45-117); Anion Gap 8 (5-15); BUN 14 mg/dL (7-18); BUN/Creat Ratio 14.6 RATIO (10-20); Chloride 127 mmol/L (98-107); Creatinine, Serum 0.96 mg/dL (0.55-1.02); EST Glomerular Filtration Rate 61 mL/min (>60); Est Glom Filt Rate - Afr Amer 74 mL/min (>60); Estimated Creatinine Clearance 43.13 ml/min; Globulin 2.7 g/dL (2.2-4.2); Glucose 239 mg/dL (74-106); Potassium 4.4 mmol/L (3.5-5.1); Protein, Total 5.6 g/dL (6.4-8.2); Sodium Level 153 mmol/L (136-145)
[2021-01-06 08:06] LABS: Bedside Glucose 378 mg/dL (70-110)
--- NOTE | 2021-01-06 08:11 | PCM.PN.INT ---
Subjective Subjective: The patient was seen and examined at the bedside this morning. Events from the last 24 hours have been reviewed. The patient did have some low-grade fevers overnight but has remained otherwise hemodynamically stable. She is maintaining appropriate oxygen saturations on room air. Her mentation has improved and she is more appropriately alert and interactive. She is requesting that her Mckoy catheter be removed this morning. She is currently documented to be overall net +3.5 L for the hospital admission. Sodium is elevated to 153 this morning with a chloride of 127 and bicarbonate of 18. Anion gap remains closed. The patient has been transition off of her continuous insulin infusion to basal and sliding scale coverage. Objective Data Objective Data The patient's most recent lab work, culture data and imaging studies have all been personally reviewed. Blood and urine cultures are pending. Vital Signs: Vital Signs Temp Pulse Resp BP Pulse Ox 99.9 F H 80 20 H 133/60 H 99 01/06/21 06:00 01/06/21 07:40 01/06/21 06:00 01/06/21 06:00 01/06/21 06:00 Oxygen Flow Rate (L/min) 2 Oxygen Delivery Method Room Air Weight: 141 lb 1.533 oz Body Mass Index (BMI) 25.8 Finger Stick Blood Glucose 129 Intake & Output: Intake and Output for Last 24 Hours 01/04/21 01/05/21 01/06/21 23:59 23:59 23:59 Intake Total 5001.33 / 5448.83 1420.0 / 1420.0 Output Total 2150 / 2850 700 / 700 Balance 2851.33 / 2598.83 720.0 / 720.0 Lab / Micro Data Attestation: I reviewed the patient's lab results. Result Diagrams: 01/06/21 06:00 01/06/21 06:00 Labs: Laboratory Results - last 24 hr 01/05/21 01/05/21 01/05/21 01:09 01:30 06:43 WBC RBC Hgb Hct MCV MCH MCHC RDW Std Deviation RDW Coeff of Vero Plt Count MPV Immature Gran % (Auto) Neut % (Auto) Lymph % (Auto) [place] % (Auto) Eos % (Auto) Baso % (Auto) Absolute Neuts (auto) Absolute Lymphs (auto) Nucleated RBC % Diff Path Review Reviewed Reactive Lymphocytes Platelet Estimate Sodium Potassium Chloride Carbon Dioxide Anion Gap BUN Creatinine Estim Creat Clear Calc Est GFR (MDRD) Af Amer Est GFR (MDRD) Non-Af BUN/Creatinine Ratio Glucose Hemoglobin A1c Lactic Acid Calcium Phosphorus Magnesium Total Bilirubin AST ALT Alkaline Phosphatase Total Protein Albumin Globulin Albumin/Globulin Ratio POC Glucose 378 H 249 H 01/05/21 01/05/21 01/05/21 07:20 07:20 07:20 WBC RBC Hgb Hct MCV MCH MCHC RDW Std Deviation RDW Coeff of Vero Plt Count MPV Immature Gran % (Auto) Neut % (Auto) Lymph % (Auto) [place] % (Auto) Eos % (Auto) Baso % (Auto) Absolute Neuts (auto) Absolute Lymphs (auto) Nucleated RBC % Diff Path Review Reactive Lymphocytes Platelet Estimate Sodium 149 H Potassium 3.8 Chloride 114 H Carbon Dioxide 5.0 L* Anion Gap 30 H BUN 27 H Creatinine 1.45 H Estim Creat Clear Calc 28.55 Est GFR (MDRD) Af Amer 46 L Est GFR (MDRD) Non-Af 38 L BUN/Creatinine Ratio 18.6 Glucose 240 H Hemoglobin A1c 9.5 H Lactic Acid 2.4 H* Calcium 8.9 Phosphorus Magnesium 2.4 Total Bilirubin AST ALT Alkaline Phosphatase Total Protein Albumin Globulin Albumin/Globulin Ratio POC Glucose 01/05/21 01/05/21 01/05/21 07:20 07:28 07:29 WBC RBC Hgb Hct MCV MCH MCHC RDW Std Deviation RDW Coeff of Vero Plt Count MPV Immature Gran % (Auto) Neut % (Auto) Lymph % (Auto) [place] % (Auto) Eos % (Auto) Baso % (Auto) Absolute Neuts (auto) Absolute Lymphs (auto) Nucleated RBC % Diff Path Review Reviewed Reactive Lymphocytes RARE Platelet Estimate ADEQUATE Sodium Potassium Chloride Carbon Dioxide Anion Gap BUN Creatinine Estim Creat Clear Calc Est GFR (MDRD) Af Amer Est GFR (MDRD) Non-Af BUN/Creatinine Ratio Glucose Hemoglobin A1c Lactic Acid Calcium Phosphorus 3.4 Magnesium Total Bilirubin AST ALT Alkaline Phosphatase Total Protein Albumin Globulin Albumin/Globulin Ratio POC Glucose 231 H 01/05/21 01/05/21 01/05/21 08:39 09:48 10:30 WBC RBC Hgb Hct MCV MCH MCHC RDW Std Deviation RDW Coeff of Vero Plt Count MPV Immature Gran % (Auto) Neut % (Auto) Lymph % (Auto) [place] % (Auto) Eos % (Auto) Baso % (Auto) Absolute Neuts (auto) Absolute Lymphs (auto) Nucleated RBC % Diff Path Review Reactive Lymphocytes Platelet Estimate Sodium Potassium Chloride Carbon Dioxide Anion Gap BUN Creatinine Estim Creat Clear Calc Est GFR (MDRD) Af Amer Est GFR (MDRD) Non-Af BUN/Creatinine Ratio Glucose Hemoglobin A1c Lactic Acid Calcium Phosphorus Magnesium Total Bilirubin AST ALT Alkaline Phosphatase Total Protein Albumin Globulin Albumin/Globulin Ratio POC Glucose 231 H 232 H 245 H 01/05/21 01/05/21 01/05/21 11:35 11:35 12:32 WBC RBC Hgb Hct MCV MCH MCHC RDW Std Deviation RDW Coeff of Vero Plt Count MPV Immature Gran % (Auto) Neut % (Auto) Lymph % (Auto) [place] % (Auto) Eos % (Auto) Baso % (Auto) Absolute Neuts (auto) Absolute Lymphs (auto) Nucleated RBC % Diff Path Review Reactive Lymphocytes Platelet Estimate Sodium 150 H Potassium 3.4 L Chloride 120 H Carbon Dioxide 9.0 L* Anion Gap 21 H BUN 29 H Creatinine 1.37 H Estim Creat Clear Calc 30.22 Est GFR (MDRD) Af Amer 49 L Est GFR (MDRD) Non-Af 41 L BUN/Creatinine Ratio 21.2 H Glucose 284 H Hemoglobin A1c Lactic Acid Calcium 8.6 Phosphorus Magnesium Total Bilirubin AST ALT Alkaline Phosphatase Total Protein Albumin Globulin Albumin/Globulin Ratio POC Glucose 251 H 235 H 01/05/21 01/05/21 01/05/21 13:49 14:58 15:35 WBC RBC Hgb Hct MCV MCH MCHC RDW Std Deviation RDW Coeff of Vero Plt Count MPV Immature Gran % (Auto) Neut % (Auto) Lymph % (Auto) [place] % (Auto) Eos % (Auto) Baso % (Auto) Absolute Neuts (auto) Absolute Lymphs (auto) Nucleated RBC % Diff Path Review Reactive Lymphocytes Platelet Estimate Sodium 154 H Potassium 3.1 L Chloride 123 H Carbon Dioxide 18.0 L Anion Gap 13 BUN 26 H Creatinine 1.45 H Estim Creat Clear Calc 28.55 Est GFR (MDRD) Af Amer 46 L Est GFR (MDRD) Non-Af 38 L BUN/Creatinine Ratio 17.9 Glucose 244 H Hemoglobin A1c Lactic Acid Calcium 8.8 Phosphorus Magnesium Total Bilirubin AST ALT Alkaline Phosphatase Total Protein Albumin Globulin Albumin/Globulin Ratio POC Glucose 239 H 225 H 01/05/21 01/05/21 01/05/21 16:02 17:26 18:12 WBC RBC Hgb Hct MCV MCH MCHC RDW Std Deviation RDW Coeff of Vero Plt Count MPV Immature Gran % (Auto) Neut % (Auto) Lymph % (Auto) [place] % (Auto) Eos % (Auto) Baso % (Auto) Absolute Neuts (auto) Absolute Lymphs (auto) Nucleated RBC % Diff Path Review Reactive Lymphocytes Platelet Estimate Sodium Potassium Chloride Carbon Dioxide Anion Gap BUN Creatinine Estim Creat Clear Calc Est GFR (MDRD) Af Amer Est GFR (MDRD) Non-Af BUN/Creatinine Ratio Glucose Hemoglobin A1c Lactic Acid Calcium Phosphorus Magnesium Total Bilirubin AST ALT Alkaline Phosphatase Total Protein Albumin Globulin Albumin/Globulin Ratio POC Glucose 186 H 220 H 221 H 01/05/21 01/05/21 01/05/21 19:03 20:05 20:11 WBC RBC Hgb Hct MCV MCH MCHC RDW Std Deviation RDW Coeff of Vero Plt Count MPV Immature Gran % (Auto) Neut % (Auto) Lymph % (Auto) [place] % (Auto) Eos % (Auto) Baso % (Auto) Absolute Neuts (auto) Absolute Lymphs (auto) Nucleated RBC % Diff Path Review Reactive Lymphocytes Platelet Estimate Sodium 158 H Potassium 2.6 L* Chloride 131 H* Carbon Dioxide 19.0 L Anion Gap 8 BUN 19 H Creatinine 1.07 H Estim Creat Clear Calc 38.69 Est GFR (MDRD) Af Amer 65 Est GFR (MDRD) Non-Af 54 L BUN/Creatinine Ratio 17.8 Glucose 234 H Hemoglobin A1c Lactic Acid Calcium 7.0 L Phosphorus Magnesium Total Bilirubin AST ALT Alkaline Phosphatase Total Protein Albumin Globulin Albumin/Globulin Ratio POC Glucose 200 H 204 H 01/05/21 01/05/21 01/05/21 20:59 22:08 23:23 WBC RBC Hgb Hct MCV MCH MCHC RDW Std Deviation RDW Coeff of Vero Plt Count MPV Immature Gran % (Auto) Neut % (Auto) Lymph % (Auto) [place] % (Auto) Eos % (Auto) Baso % (Auto) Absolute Neuts (auto) Absolute Lymphs (auto) Nucleated RBC % Diff Path Review Reactive Lymphocytes Platelet Estimate Sodium Potassium Chloride Carbon Dioxide Anion Gap BUN Creatinine Estim Creat Clear Calc Est GFR (MDRD) Af Amer Est GFR (MDRD) Non-Af BUN/Creatinine Ratio Glucose Hemoglobin A1c Lactic Acid Calcium Phosphorus Magnesium Total Bilirubin AST ALT Alkaline Phosphatase Total Protein Albumin Globulin Albumin/Globulin Ratio POC Glucose 177 H 169 H 129 H 01/06/21 01/06/21 01/06/21 01:40 06:00 06:00 WBC 9.9 RBC 4.22 Hgb 12.3 Hct 37.3 MCV 88.4 D MCH 29.1 MCHC 33.0 D RDW Std Deviation 46.3 H RDW Coeff of Vero 14.4 Plt Count 197 MPV 9.5 Immature Gran % (Auto) 0.600 Neut % (Auto) 84.7 H Lymph % (Auto) 7.9 L [place] % (Auto) 6.7 Eos % (Auto) 0.0 Baso % (Auto) 0.1 Absolute Neuts (auto) 8.4 H Absolute Lymphs (auto) 0.78 L Nucleated RBC % 0 [address] Review Reactive Lymphocytes Platelet Estimate Sodium 154 H 153 H Potassium 4.3 4.4 Chloride 129 H* 127 H* Carbon Dioxide 17.0 L 18.0 L Anion Gap 8 8 BUN 16 14 Creatinine 0.94 0.96 Estim Creat Clear Calc 44.04 43.13 Est GFR (MDRD) Af Amer 75 74 Est GFR (MDRD) Non-Af 62 61 BUN/Creatinine Ratio 17.0 14.6 Glucose 184 H 239 H Hemoglobin A1c Lactic Acid Calcium 7.5 L 8.0 L Phosphorus Magnesium Total Bilirubin 0.50 AST 16 ALT 10 L Alkaline Phosphatase 77 Total Protein 5.6 L Albumin 2.9 L Globulin 2.7 Albumin/Globulin Ratio 1.1 POC Glucose Physical Exam Const alert and no apparent distress General Appearance: cooperative Orientation / Consciousness: confused HEENT normocephalic, head/scalp atraumatic and moist oral mucous membranes Mouth: dry mucous membranes Eyes PERRL and EOMs intact bilaterally Resp normal respiratory effort Auscultation: Negative for rales, rhonchi or wheezes Cardio regular rate, regular rhythm, S1 normal heart sound and S2 normal heart sound Heart Sounds: Negative for murmur GI normal to inspection, nondistended, normoactive bowel sounds Extremity no clubbing, cyanosis or edema Skin no rashes or lesions noted Neuro CN's II-XII intact bilaterally and no focal motor deficits Psych Mood & Affect: flat affect Assessment & Plan Assessment/Plan (1) DKA (diabetic ketoacidoses): Status: Acute Code(s): E11.10 - Type 2 diabetes mellitus with ketoacidosis without coma (2) Metabolic encephalopathy: Status: Acute Code(s): G93.41 - Metabolic encephalopathy Plan: RECOMMENDATIONS: 1. Start D5W to offset rising sodium and chloride. 2. Continue empiric antimicrobials for an additional 24 hours, pending finalized culture results. 3. Continue basal and sliding scale insulin coverage. 4. Remove Mckoy catheter. 5. Advance diet accordingly. 6. Encourage incentive spirometer use and mobilize patient as tolerated. 7. The patient is medically stable for transfer out of the intensive care unit. IMPRESSIONS: 1. Diabetic ketoacidosis Resolved. The patient appears to have poorly controlled diabetes mellitus on an outpatient basis. The patient was treated with judicious IV fluids and a continuous insulin infusion with subsequent resolution of her DKA. She has since been transitioned to basal and sliding scale insulin coverage. 2. Hypernatremia Likely secondary to judicious use of normal saline. Recommend starting D5W to offset sodium and chloride levels. 3. Encephalopathy Improved. Likely metabolic in etiology. 4. History of hypertension/hyperlipidemia/anxiety/obstructive sleep apnea Complicates care, management, recovery and prognosis. Continue home medications as indicated. This note was generated with [employer] dictation software. It may contain incorrect words, spelling, and punctuation that were not noted in checking the note before signing. Visit Charges Inpatient E&M: 62466 Subs Hosp L2
[2021-01-06] MEDS: Insulin Lispro 100 UNIT/ML INSULN.PEN SC ×4 (08:36→22:20)
[2021-01-06] MEDS: Escitalopram Oxalate 20 MG Tablet PO (08:37)
[2021-01-06] MEDS: Calcium Carb/Vitamin D 1 TABLET Tablet PO (08:37)
[2021-01-06] MEDS: Pantoprazole Sodium 20 MG Tablet PO ×2 (08:37→22:20)
[2021-01-06] MEDS: Enoxaparin 40 MG/0.4 ML Syringe SC (08:37)
[2021-01-06] MEDS: Aspirin 81 MG TAB.CHEW PO (08:37)
[2021-01-06 08:46] LABS: Bedside Glucose 243 mg/dL (70-110)
[2021-01-06 11:45] LABS: Bedside Glucose 314 mg/dL (70-110)
--- NOTE | 2021-01-06 16:05 | RAD_ITS ---
STUDY: X-RAY CHEST REASON FOR EXAM: Female, 70 years old. fevers TECHNIQUE: 2 views COMPARISON: Prior chest radiograph of 01/05/2021 and prior radiograph of 06/13/2018 FINDINGS: The lungs are clear and expanded. Calcified granulomata. Mild chronic lingular changes. Normal size heart. Normal mediastinum and anisha. Normal visualized pulmonary arteries. There is atherosclerotic calcification of the aortic arch . Normal visualized thoracic spine. Normal visualized ribs, clavicles, and shoulders. There is no demonstrated abnormality of the visualized soft tissue structures of the upper abdomen. RAD/Chest PA and Lateral IMPRESSION: No acute cardiopulmonary findings or changes. Negative for consolidation, atelectasis or other infiltrates. Stigmata of old granulomatous disease. Electronically Signed: Nan Disla MD at 16:19 EDT , Service support ,
[2021-01-06 17:01] LABS: Bedside Glucose 345 mg/dL (70-110)
[2021-01-06] MEDS: Atorvastatin Calcium 10 MG Tablet PO (22:20)
[2021-01-06 22:51] LABS: Bedside Glucose 175 mg/dL (70-110)
[2021-01-07] VITALS (7 sets, daily range): BP systolic 128–141; BP diastolic 53–75; PULSE 67–82; RESP 12–18; TEMP 36.7–37.1; O2SAT 97–99
[2021-01-07 05:44] LABS: Absolute Lymphocyte Count 1.77 X10^3/uL (0.83-4.51); Absolute Neutrophil Count 4.3 X10^3/uL (2.0-7.7); Basophil# 0.01 X10^3/uL; Basophil% 0.2 % (0-1); Eosinophil# 0.02 X10^3/uL; Eosinophils% 0.3 % (0-5); Hematocrit 36.8 % (37-47); Hemoglobin 12.2 g/dL (12.0-15.0); Lymphocyte # 1.77 X10^3/ul (0.83-4.51); Mean Corp Hgb Conc 33.2 g/dL (32-36); Mean Corpuscular Hgb 28.8 pg (27.0-32.0); Mean Platelet Vol. 9.9 fl (6.2-12.0); Monocyte% 6.1 % (0-10); NRBC Flagged by Analyzer 0 % (0-5); Neutrophil # 4.34 X10^3/uL (2.7-7.7); Neutrophil % 66.1 % (47-70); Platelet Count 170 K/mm3 (150-450); RBC Distribution Width CV 14.9 % (11.6-14.6); RBC Distribution Width SD 47.4 fl (35.1-43.9); Red Blood Count 4.23 M/mm3 (4.2-5.4); White Blood Count 6.6 K/mm3 (4.4-11.0)
[2021-01-07 06:11] LABS: ALB/GLOB Ratio 1.1 RATIO (0.9-2.4); AST(SGOT) 14 U/L (15-37); Alanine Aminotransfer ALT/SGPT 11 U/L (13-56); Albumin, Serum 2.9 g/dL (3.2-5.0); Alkaline Phosphatase 74 U/L (45-117); Anion Gap 5 (5-15); BUN 4 mg/dL (7-18); BUN/Creat Ratio 6.8 RATIO (10-20); Calcium,Total 8.7 mg/dL (8.5-10.1); Chloride 114 mmol/L (98-107); Creatinine, Serum 0.59 mg/dL (0.55-1.02); EST Glomerular Filtration Rate 107 mL/min (>60); Est Glom Filt Rate - Afr Amer 129 mL/min (>60); Globulin 2.7 g/dL (2.2-4.2); Glucose 142 mg/dL (74-106); Protein, Total 5.6 g/dL (6.4-8.2); Sodium Level 143 mmol/L (136-145)
[2021-01-07 07:00] LABS: Bedside Glucose 131 mg/dL (70-110)
[2021-01-07] MEDS: Aspirin 81 MG TAB.CHEW PO (08:42)
--- NOTE | 2021-01-07 09:42 | CASEMGMT ---
ELA MUKHERJEE noted that therapy at home is recommended for pt. ELA MUKHERJEE in to pt room to discuss. Pt states she would not like HHC in her home. She is aware that it was recommended. Pt aware if she would change her mind once home, she can contact PCP to order HHC. Pt denies further needs.
[2021-01-07 10:06] LABS: Internal QC Validated? YES +Cl - CLEAR BKGD; Monotest Negative (Negative)
[2021-01-07] MEDS: Calcium Carb/Vitamin D 1 TABLET Tablet PO (10:27)
[2021-01-07] MEDS: Enoxaparin 40 MG/0.4 ML Syringe SC (10:27)
[2021-01-07] MEDS: Escitalopram Oxalate 20 MG Tablet PO (10:27)
[2021-01-07] MEDS: Pantoprazole Sodium 20 MG Tablet PO (10:28)
[2021-01-07] MEDS: Lisinopril 5 MG Tablet PO (10:28)
[2021-01-07] MEDS: Insulin Lispro 100 UNIT/ML INSULN.PEN SC (11:31)
[2021-01-07 11:40] LABS: Bedside Glucose 205 mg/dL (70-110)
--- NOTE | 2021-01-07 11:54 | DCINST_ITS ---
Discharge Instructions Diet Discharge Diet: 1800 Calorie Control Diet Activity Discharge Activity: Return to Normal Activity May resume sexual activity in: No Restrictions Weight Bearing Status: Weight bearing as tolerated Dressing / Incision Call your doctor if you observe: Fever of 101 or Higher, Shortness of breath, Dizziness, Fainting spells, Chest pain, Uncontrolled pain and - (Elevated blood sugars or recurrent confusion.) Follow Up Care Please Follow Up With: Garrick Benson When: Follow-up with your PCP within 2-3 days to review admission. Test Results: Test results from this visit will be discussed in further detail at your follow-up appointment, if applicable. Discharge Plan Admission Admit Date/Time: 01/05/21 02:57 Primary Reason for Your Visit: Acute Encephalopathy secondary to DKA, TIM, Leukocytosis Attending Provider: Clementine Lindquist Primary Care Provider: Garrick Benson Consulting Providers: Osmin Daniel ; Eleazar Benson ; Greta Emerson [employer] Instructions Patient Instructions: Diabetes and Your Child: Checking Blood Sugar, Diabetes and Your Child: High Blood Sugar, Diabetes and Your Child: Low Blood Sugar, Diabetes and Your Child: Understanding Type 2, Diabetes and Your Child: Preventing Diabetic Ketoacidosis (DKA) Additional Instructions / Restrictions: During the admission you had notably elevated WBC which can be a marker of infection however there was no obvious immediate source. Your urine did not demonstrate any evidence of infection, your chest x-ray twice was unremarkable and her blood cultures had no growth. Given your sore throat and mild cervical lymphadenopathy a Monospot test as well as a strep throat test were obtained and both were negative. Please continue to closely follow-up with your primary care physician for these complaints. Given your HgBA1c 9.4%, you were also started on low dose twice daily long- acting insulin which may need adjusted/increased to achieve appropriate blood sugar control. You will need to very closely follow with your primary care to alter your diabetic medications further to assist in control. Please keep long of your blood sugars and bring them to your follow-up visit with your primary care physician. Please take your blood sugar at this time before your largest meal and at bedtime. This may be broadened with a insulin sliding scale depend ing on how you respond with your current regimen. In order to avoid overloading you, you have been started on a specific scheduled regimen. Discharge Orders/Prescriptions Prescriptions: New Lantus Solostar U-100 Insulin 100 unit/mL (3 mL) Insulin Pen 10 unit subcut BID 30 Days Qty: 6 RF: 0 (DME) pen needle, diabetic [BD Ultra-Fine Micro Pen Needle] 32 gauge x 1/4 needle See Rx Instructions .ROUTE .MEDSUPPLY Qty: 50 RF: 0 Continued aspirin 81 mg tablet,chewable 81 mg PO QDAY RF: 0 calcium carb,cit ER 600 mg calcium-vit D3 500 unit tablet,ext.release 600 mg calcium- 500 unit tablet extended release 1 tab PO DAILY RF: 0 lisinopril 5 mg tablet 5 mg PO QDAY Qty: 90 RF: 2 metformin 500 mg tablet 1,000 mg PO BID Qty: 360 RF: 3 simvastatin 20 mg tablet 20 mg PO DAILY Qty: 90 RF: 2 escitalopram oxalate 20 mg tablet 20 mg PO DAILY Qty: 90 RF: 1 Trulicity 3 mg/0.5 mL pen injector 3 mg SC QWEEK Qty: 2 RF: 3 Farxiga 10 mg tablet 10 mg PO DAILY Qty: 30 RF: 3 (DME) FreeStyle Lite Strips Strip See Rx Instructions .ROUTE .MEDSUPPLY Qty: 100 RF: 3 (DME) blood-glucose meter [FreeStyle [place]] Kit See Rx Instructions .ROUTE .MEDSUPPLY Qty: 1 RF: 1 Referrals / Follow Up: Garrick Benson DO [Primary Care Provider] - (Follow-up within 2-3 days to review admission. Please have repeat CBC and BMP at follow-up with your primary care at follow-up.) Disposition Disposition (needs filled in before D/C Order can be placed): Home, self care
--- NOTE | 2021-01-07 12:08 | DS.PCM_ITS ---
Providers Date of Admission: 01/05/21 Primary Care Physician: Dr. Garrick Benson, DO Consultations 01/05/21 06:48 Consult: Customs Compliance Analyst / Pulmonary Medicine Routine Consulting Provider: Pulmonary Medicine jane Quan Reason for Consult: DKA EMERGENT Consult: No MD Notified: Yes Date Notified:: 01/05/21 Time Notified: 06:48 Method of Notification: Verbal Reason For Visit: DKA Diagnosis Discharge Diagnosis (1) DKA (diabetic ketoacidoses): Status: Acute Code(s): E11.10 - Type 2 diabetes mellitus with ketoacidosis without coma (2) Metabolic encephalopathy: Status: Acute Code(s): G93.41 - Metabolic encephalopathy Plan: 1. Acute metabolic encephalopathy with lactic acidosis secondary to acute DKA with underlying history of poorly controlled diabetes mellitus type II 2. Leukocytosis with as noted lactic acidosis, likely secondary to #1; however, patient did have low grade T during admission but unclear source (Urine without growth, Bld Cx without growth, CXR x 2 unremarkable, rapid strep and mono negative given only complaint sore throat and cervical lymphadenopathy) 3. Acute kidney injury, Secondary to acute presentation #1, resolved 4. Hypertension 5. Hyperlipidemia 6. Anxiety and depression 7. JOSHUA on CPAP nightly 8. Essential tremor Medications at Discharge Home Medications aspirin 81 mg chewable tablet 81 mg PO QDAY 12/26/17 calcium carb,cit ER 600 mg-vit D3 12.5 mcg (500 unit) tablet,ext.rel 1 tab PO DAILY 12/26/17 dulaglutide 3 mg/0.5 mL subcutaneous pen injector 3 mg SC QWEEK #2 ml 11/24/20 blood sugar diagnostic #100 each 12/02/20 blood-glucose meter #1 each 12/02/20 escitalopram oxalate 20 mg tablet 20 mg PO DAILY #90 tab 12/02/20 lisinopril 5 mg tablet 5 mg PO QDAY #90 tab 12/02/20 metformin 500 mg tablet 1,000 mg PO BID #360 tab 12/02/20 simvastatin 20 mg tablet 20 mg PO DAILY #90 tab 12/02/20 dapagliflozin 10 mg tablet 10 mg PO DAILY #30 tablet 12/22/20 insulin glargine [Lantus Solostar U-100 Insulin] 10 unit SUBCUT BID 30 Days #6 ml NS 01/07/21 pen needle, diabetic [BD Ultra-Fine Micro Pen Needle] #50 ea 01/07/21 Hospital Course Operations None Procedures EKG and - (Insulin drip with ICU admission.) Summary of Care Provided Minutes Spent on Discharge: 35 Hospital Course: The patient is a 70 y/o F w/ PMHx: Diabetes mellitus type II, HTN, HLD, IBS, JOSHUA on CPAP, Anxiety and Depression, Essential tremor history who presented to the [facility] ED on 01/05/21 with history of onset fatigue, malaise with increased confusion and family concern for possible stroke prompting ED evaluation with the ED work-up concerning for DKA. Patient admitted to the ICU initially until resolved DKA with then PCU transition. Patient was initiated in the ED and continued on insulin drip until anion gap closure with 01/06/2021 transition to subcu insulin with increase to lantus 10 u BID with overlapping insulin sliding scale and Accu-Cheks, during admission maintained on broad- spectrum antibiotic therapy given initial significant leukocytosis however has corrected 01/06/2021 WBC 9.9 and awaiting cultures to de-escalate off antibiotic therapy all the do suspect likely all associate with DKA presentation, sodium and chloride have risen likely secondary to aggressive hydration, 01/06/2021 sodium 153, chloride 127, IV fluids have since been held-->01/07/21 resolved w/ sodium 143, chloride 114. Hemoglobin A1c 9.5%, most recently 03/17/2020 9.4%, clearly unchanged. Nutrition consulted for education and teaching. During admission patient with noted leukocytosis with as noted lactic acidosis and low grade T of unclear source, felt primarily associated with DKA; however, to be cautious obtained UCx, Bld Cx both without growth, CXR x 2 without acute findings, rapid strep and mono negative given only complaint cervical lymphadenopathy and mildly sore throat. Patient was placed on BSA but this was discontinued once cultures were noted to be negative per discussion with Dr. Benson, Pulm/CC. During admission, noted TIM, secondary to acute presentation #1 w/ admission BUN/Cr 28/1.51, prior baseline creatinine noted to be 0.7, given #1 also patient aggressively hydrate, temporarily held nephrotoxic medications, 01/07/21 BUN/Cr 0/0.59, resolved. Patient given improvement discharged to home in improved condition with close PCP follow-up, newly initiated low dose BID lantus 10 units given HgBA1c level especially given unchanged from prior with recommended diet and lifestyle alterations, close blood sugar monitoring with a log which is recommended to bring to follow-up visit with primary care physician. DAY OF DISCHARGE PROGRESS NOTE: Subjective: Patient without acute event overnight per self and nursing report. Patient notes feeling improved with only complaint mildly sore throat and cervical lymphadenopathy with no obvious exudate or findings with some postnasal drip admission. Patient denies chills, nausea, emesis, abdominal pain, chest pain or dyspnea. Patient agreeable to discharge to home with close PCP follow- up as noted. Patient will be discharged with follow-up with primary care physician within 3-5 days. Patient is familiar with the diabetic clinic and intends to follow-up there as well. Objective: T 98.3, heart rate 82, BP 120/53, respiratory rate 12, 98% room air. Physical Examination: General: awake, alert, oriented x 3 and cooperative, seated upright in the PCU bedside chair, no acute distress, notes feeling improved. Skin: normal color, turgor, no icterus, cyanosis. HEENT: AT/NC, EOMI, PERRLA, MMM, mild posterior oropharynx irritation, mild drainage consistent with postnasal drip, no exudates noted with mild cervical lymphadenopathy which was tender. Lungs: CTA bilaterally, moderate effort, no rales, ronchi or wheezing; Heart: Regular rate and rhythm; no gallop, rub audible. Abdomen: soft, NTTP, ND, normal BS. Extremities: no cyanosis, clubbing, or edema. Neurological: patient awake, alert, oriented as noted; cognitive function appears intact upon questioning; pupils equally reactive to light and accomodation; cranial nerves II-XII grossly normal, moving all 4 extremities, strength improving, mildly global decrease given acute presentation. Psychiatric: affect appears less fatigued, more interactive, normal, no acute evidence of depressive or anxiety feelings. Assessment and Plan: Please see hospital summary above. ABG / Lab / Microbiology Data Result Diagrams: 01/07/21 05:08 01/07/21 05:08 Laboratory: Laboratory Results - last 24 hr 01/06/21 01/06/21 01/07/21 16:52 22:19 05:08 WBC 6.6 RBC 4.23 Hgb 12.2 Hct 36.8 L MCV 87.0 MCH 28.8 MCHC 33.2 RDW Std Deviation 47.4 H RDW Coeff of Vero 14.9 H Plt Count 170 MPV 9.9 Immature Gran % (Auto) 0.300 Neut % (Auto) 66.1 Lymph % (Auto) 27.0 [place] % (Auto) 6.1 Eos % (Auto) 0.3 Baso % (Auto) 0.2 Absolute Neuts (auto) 4.3 Absolute Lymphs (auto) 1.77 Nucleated RBC % 0 Sodium Potassium Chloride Carbon Dioxide Anion Gap BUN Creatinine Estim Creat Clear Calc Est GFR (MDRD) Af Amer Est GFR (MDRD) Non-Af BUN/Creatinine Ratio Glucose Calcium Total Bilirubin AST ALT Alkaline Phosphatase Total Protein Albumin Globulin Albumin/Globulin Ratio Monoscreen POC Glucose 345 H 175 H 01/07/21 01/07/21 01/07/21 05:08 05:08 06:44 WBC RBC Hgb Hct MCV MCH MCHC RDW Std Deviation RDW Coeff of Vero Plt Count MPV Immature Gran % (Auto) Neut % (Auto) Lymph % (Auto) [place] % (Auto) Eos % (Auto) Baso % (Auto) Absolute Neuts (auto) Absolute Lymphs (auto) Nucleated RBC % Sodium 143 Potassium 4.0 Chloride 114 H Carbon Dioxide 24.0 Anion Gap 5 BUN 4 L Creatinine 0.59 Estim Creat Clear Calc 41.40 Est GFR (MDRD) Af Amer 129 Est GFR (MDRD) Non-Af 107 BUN/Creatinine Ratio 6.8 L Glucose 142 H Calcium 8.7 Total Bilirubin 0.60 AST 14 L ALT 11 L Alkaline Phosphatase 74 Total Protein 5.6 L Albumin 2.9 L Globulin 2.7 Albumin/Globulin Ratio 1.1 Monoscreen Negative POC Glucose 131 H 01/07/21 11:27 WBC RBC Hgb Hct MCV MCH MCHC RDW Std Deviation RDW Coeff of Vero Plt Count MPV Immature Gran % (Auto) Neut % (Auto) Lymph % (Auto) [place] % (Auto) Eos % (Auto) Baso % (Auto) Absolute Neuts (auto) Absolute Lymphs (auto) Nucleated RBC % Sodium Potassium Chloride Carbon Dioxide Anion Gap BUN Creatinine Estim Creat Clear Calc Est GFR (MDRD) Af Amer Est GFR (MDRD) Non-Af BUN/Creatinine Ratio Glucose Calcium Total Bilirubin AST ALT Alkaline Phosphatase Total Protein Albumin Globulin Albumin/Globulin Ratio Monoscreen POC Glucose 205 H Microbiology: Microbiology 01/07/21 10:23 Group A Streptococcus Rapid Screen - Preliminary Interface Orders 01/05/21 07:45 Urine Culture - Final Urine Catheter - Mckoy Culture exhibits no growth. 01/05/21 10:00 Blood Culture - Preliminary Blood Culture (Wb) - Left Hand No growth in 48 hours. 01/05/21 09:50 Blood Culture - Preliminary Blood Culture (Wb) - Anticubital Right No growth in 48 hours. Microbiology 01/07/21 10:23 Interface Orders Group A Streptococcus Rapid Screen - Preliminary 01/05/21 07:45 Urine Catheter - Mckoy Urine Culture - Final Culture exhibits no growth. 01/05/21 10:00 Blood Culture (Wb) - Left Hand Blood Culture - Preliminary No growth in 48 hours. 01/05/21 09:50 Blood Culture (Wb) - Anticubital Right Blood Culture - Preliminary No growth in 48 hours. Radiography Diagnostic Testing: Radiology Impression Chest X-Ray 01/06/21 16:05 IMPRESSION: No acute cardiopulmonary findings or changes. Negative for consolidation, atelectasis or other infiltrates. Stigmata of old granulomatous disease. Electronically Signed: Nan Disla MD at 16:19 EDT , Service support , D/C Instructions Discharge Diet: 1800 Calorie Control Diet Discharge Activity: Return to Normal Activity May resume sexual activity in: No Restrictions Weight Bearing Status: Weight bearing as tolerated Call your doctor if you observe: Fever of 101 or Higher, Shortness of breath, Dizziness, Fainting spells, Chest pain, Uncontrolled pain and - (Elevated blood sugars or recurrent confusion.) Please Follow Up With: Garrick Bensno When: Follow-up with your PCP within 2-3 days to review admission. Meaningful Use Info Meaningful Use Diagnoses (Choose all that apply): None applicable Discharge Plan Admission Admit Date/Time: 01/05/21 02:57 Primary Reason for Your Visit: Acute Encephalopathy secondary to DKA, TIM, Leukocytosis Attending Provider: Clementine Lindquist Primary Care Provider: Garrick Benson Consulting Providers: Osmin Daniel ; Eleazar Benson ; Greta Emerson DELIVERY MERCHANDISER Instructions Patient Instructions: Diabetes and Your Child: Checking Blood Sugar, Diabetes and Your Child: High Blood Sugar, Diabetes and Your Child: Low Blood Sugar, Diabetes and Your Child: Understanding Type 2, Diabetes and Your Child: Preventing Diabetic Ketoacidosis (DKA) Additional Instructions / Restrictions: During the admission you had notably elevated WBC which can be a marker of infection however there was no obvious immediate source. Your urine did not demonstrate any evidence of infection, your chest x-ray twice was unremarkable and her blood cultures had no growth. Given your sore throat and mild cervical lymphadenopathy a Monospot test as well as a strep throat test were obtained and both were negative. Please continue to closely follow-up with your primary care physician for these complaints. Given your HgBA1c 9.4%, you were also started on low dose twice daily long- acting insulin which may need adjusted/increased to achieve appropriate blood sugar control. You will need to very closely follow with your primary care to alter your diabetic medications further to assist in control. Please keep long of your blood sugars and bring them to your follow-up visit with your primary care physician. Please take your blood sugar at this time before your largest meal and at bedtime. This may be broadened with a insulin sliding scale depending on how you respond with your current regimen. In order to avoid overloading you, you have been started on a specific scheduled regimen. Discharge Orders/Prescriptions Prescriptions: New Lantus Solostar U-100 Insulin 100 unit/mL (3 mL) Insulin Pen 10 unit subcut BID 30 Days Qty: 6 RF: 0 (DME) pen needle, diabetic [BD Ultra-Fine Micro Pen Needle] 32 gauge x 1/4 needle See Rx Instructions .ROUTE .MEDSUPPLY Qty: 50 RF: 0 Continued aspirin 81 mg tablet,chewable 81 mg PO QDAY RF: 0 calcium carb,cit ER 600 mg calcium-vit D3 500 unit tablet,ext.release 600 mg calcium- 500 unit tablet extended release 1 tab PO DAILY RF: 0 lisinopril 5 mg tablet 5 mg PO QDAY Qty: 90 RF: 2 metformin 500 mg tablet 1,000 mg PO BID Qty: 360 RF: 3 simvastatin 20 mg tablet 20 mg PO DAILY Qty: 90 RF: 2 escitalopram oxalate 20 mg tablet 20 mg PO DAILY Qty: 90 RF: 1 Trulicity 3 mg/0.5 mL pen injector 3 mg SC QWEEK Qty: 2 RF: 3 Farxiga 10 mg tablet 10 mg PO DAILY Qty: 30 RF: 3 (DME) FreeStyle Lite Strips Strip See Rx Instructions .ROUTE .MEDSUPPLY Qty: 100 RF: 3 (DME) blood-glucose meter [FreeStyle [place]] Kit See Rx Instructions .ROUTE .MEDSUPPLY Qty: 1 RF: 1 Referrals / Follow Up: Garrick Benson DO [Primary Care Provider] - (Follow-up within 2-3 days to review admission. Please have repeat CBC and BMP at follow-up with your primary care at follow-up.) Disposition Disposition (needs filled in before D/C Order can be placed): Home, self care Visit Charges Inpatient E&M: 35405 Disch Hosp
--- NOTE | 2021-01-07 15:09 | NURSING ---
Extensive teaching with demonstration for the Lantus provided to both the pt and her .
== END 2021-01-07 15:10 | disposition home or self-care (01) | DRG 637 ==
LOC: ED 02:41 → ICU 02:58 → PCU 01-06 17:15
PROVIDERS: Nurse Practitioner Family; Admitting Provider Family Medicine; Emergency Provider Emergency Medicine; PCP Family Medicine; Visit Provider Family Medicine
DX: E11.10 Type 2 diabetes mellitus with ketoacidosis without coma (principal); G93.41 Metabolic encephalopathy; N17.9 Acute kidney failure, unspecified; E87.0 Hyperosmolality and hypernatremia; I10 Essential (primary) hypertension; E78.2 Mixed hyperlipidemia; F41.9 Anxiety disorder, unspecified; E86.9 Volume depletion, unspecified; G25.0 Essential tremor; G47.33 Obstructive sleep apnea (adult) (pediatric); F32.9 Major depressive disorder, single episode, unspecified; K58.9 Irritable bowel syndrome, unspecified; Z66 Do not resuscitate; Z79.82 Long term (current) use of aspirin; Z79.899 Other long term (current) drug therapy; Z79.84 Long term (current) use of oral hypoglycemic drugs
CPT/HCPCS: 36415; 36600; 70450; 70496; 70498; 71045; 71046; 80048; 80053; 81001; 82009; 82803; 82962; 83036; 83605; 83735; 84100; 84484; 85025; 85610; 85730; 86308; 87040; 87086; 87880; 93005; 97110; 97162; 97166; 97535; 97803; 99285; J7030; Q9967; A4216; J7799

== ENCOUNTER → 2021-01-13 11:54 | Outpatient (CLI) | payer MEDICARE, OTHER, SELFPAY ==
[2021-01-13 11:29] VITALS: BMI 25.8
[2021-01-13 15:50] LABS: T4 Free Direct 1.23 ng/dL (0.76-1.46); Thyroid Stim Hormone (TSH) 0.83 uIU/mL (0.358-3.74)
== END ==
PROVIDERS: PCP Family Medicine; Referring Provider Family Medicine; Visit Provider Family Medicine
DX: E11.9 Type 2 diabetes mellitus without complications (principal)
CPT/HCPCS: 36415; 84439; 84443

== ENCOUNTER 2021-01-21 08:30 | Outpatient (RCR) | payer MEDICARE, OTHER, SELFPAY ==
[2021-01-13 11:29] VITALS: BMI 25.8
== END 2021-02-01 23:59 ==
LOC: DC 08:30
PROVIDERS: PCP Family Medicine; Visit Provider Family Medicine
DX: E11.9 Type 2 diabetes mellitus without complications (principal)
CPT/HCPCS: G0108

== ENCOUNTER 2021-02-24 14:00 | Outpatient (RCR) | payer MEDICARE, OTHER, SELFPAY ==
[2021-01-27 11:02] VITALS: BMI 25.8
== END 2021-03-03 23:59 ==
LOC: DC 14:00
PROVIDERS: PCP Family Medicine; Visit Provider Family Medicine
DX: E11.9 Type 2 diabetes mellitus without complications (principal)
CPT/HCPCS: 97802; 97803; G0108

== ENCOUNTER → 2022-02-22 | Outpatient (CLI) | payer MEDICARE, OTHER, SELFPAY ==
[2022-02-22 12:41] LABS: ALB/GLOB Ratio 1.2 RATIO (0.9-2.4); AST(SGOT) 15 U/L (15-37); Alanine Aminotransfer ALT/SGPT 15 U/L (13-56); Albumin, Serum 3.8 g/dL (3.2-5.0); Alkaline Phosphatase 79 U/L (45-117); Anion Gap 8 (5-15); BUN 10 mg/dL (7-18); Calcium,Total 8.7 mg/dL (8.5-10.1); Chloride 106 mmol/L (98-107); Cholesterol 124 mg/dL (200); Creatinine, Serum 0.62 mg/dL (0.55-1.02); EST Glomerular Filtration Rate 100 mL/min (>60); Est Glom Filt Rate - Afr Amer 121 mL/min (>60); Globulin 3.1 g/dL (2.2-4.2); Glucose 167 mg/dL (74-106); High Density Lipoprotein 49 mg/dL; Potassium 3.8 mmol/L (3.5-5.1); Protein, Total 6.9 g/dL (6.4-8.2); Sodium Level 140 mmol/L (136-145); Triglycerides 107 mg/dL; Very Low Density Lipoprotein 21 mg/dL (5-40)
[2022-02-22 12:57] LABS: Microalbumin,Random Urine 57.4 mg/L (NO RANGE EST.)
== END | disposition home or self-care (01) ==
LOC: BIMLAB 10:58
PROVIDERS: PCP Family Medicine; Visit Provider Family Medicine
DX: E11.9 Type 2 diabetes mellitus without complications (principal)
CPT/HCPCS: 36415; 80053; 80061; 82043; 82570

== ENCOUNTER → 2022-05-26 | Outpatient (CLI) | payer MEDICARE, OTHER, SELFPAY ==
[2022-05-26 15:08] LABS: Absolute Lymphocyte Count 1.17 X10^3/uL (0.83-4.51); Absolute Neutrophil Count 3.2 X10^3/uL (2.0-7.7); Basophil# 0.04 X10^3/uL; Basophil% 0.8 % (0-1); Eosinophil# 0.07 X10^3/uL; Eosinophils% 1.5 % (0-5); Hematocrit 41.3 % (37-47); Hemoglobin 13.3 g/dL (12.0-15.0); Lymphocyte # 1.17 X10^3/ul (0.83-4.51); Lymphocyte % 24.3 % (19-41); Mean Corp Hgb Conc 32.2 g/dL (32-36); Mean Corpuscular Hgb 28.9 pg (27.0-32.0); Mean Corpuscular Volume 89.8 fL (81-99); Mean Platelet Vol. 10.1 fl (6.2-12.0); Monocyte# 0.31 X10^3/uL; Monocyte% 6.4 % (0-10); NRBC Flagged by Analyzer 0 % (0-5); Neutrophil # 3.22 X10^3/uL (2.7-7.7); Neutrophil % 66.8 % (47-70); Platelet Count 197 K/mm3 (150-450); RBC Distribution Width CV 12.4 % (11.6-14.6); RBC Distribution Width SD 40.8 fl (35.1-43.9); White Blood Count 4.8 K/mm3 (4.4-11.0)
[2022-05-26 15:28] LABS: Thyroid Stim Hormone (TSH) 0.94 uIU/mL (0.358-3.74)
== END | disposition home or self-care (01) ==
LOC: BIMLAB 12:21
PROVIDERS: PCP Family Medicine; Referring Provider Family Medicine; Visit Provider Family Medicine
DX: E11.9 Type 2 diabetes mellitus without complications (principal)
CPT/HCPCS: 36415; 84443; 85025

== ENCOUNTER → 2022-08-03 | Outpatient (CLI) | payer MEDICARE, OTHER, SELFPAY | END | disposition home or self-care (01) | LOC: LABSPEC 15:34 | PROVIDERS: PCP Family Medicine; Referring Provider Physician Assistant; Visit Provider Physician Assistant | DX: U07.1 COVID-19 (principal); R05.9 Cough, unspecified | CPT/HCPCS: 87635; U0003; U0005 ==

== ENCOUNTER → 2023-02-08 | Outpatient (CLI) | payer MEDICARE, OTHER, SELFPAY ==
[2023-02-08 13:12] LABS: Absolute Lymphocyte Count 1.44 X10^3/uL (0.83-4.51); Absolute Neutrophil Count 2.8 X10^3/uL (2.0-7.7); Basophil# 0.04 X10^3/uL; Basophil% 0.9 % (0-1); Eosinophil# 0.08 X10^3/uL; Eosinophils% 1.7 % (0-5); Hematocrit 41.9 % (37-47); Hemoglobin 13.9 g/dL (12.0-15.0); Lymphocyte # 1.44 X10^3/ul (0.83-4.51); Lymphocyte % 31.1 % (19-41); Mean Corp Hgb Conc 33.2 g/dL (32-36); Mean Corpuscular Hgb 29.1 pg (27.0-32.0); Mean Corpuscular Volume 87.7 fL (81-99); Mean Platelet Vol. 10.3 fl (6.2-12.0); Monocyte% 6.5 % (0-10); NRBC Flagged by Analyzer 0 % (0-5); Neutrophil # 2.77 X10^3/uL (2.7-7.7); Neutrophil % 59.8 % (47-70); Platelet Count 224 K/mm3 (150-450); RBC Distribution Width CV 12.9 % (11.6-14.6); RBC Distribution Width SD 41.5 fl (35.1-43.9); Red Blood Count 4.78 M/mm3 (4.2-5.4); White Blood Count 4.6 K/mm3 (4.4-11.0)
[2023-02-08 14:41] LABS: ALB/GLOB Ratio 1.4 RATIO (0.9-2.4); AST(SGOT) 14 U/L (15-37); Alanine Aminotransfer ALT/SGPT 12 U/L (13-56); Albumin, Serum 3.7 g/dL (3.2-5.0); Alkaline Phosphatase 96 U/L (45-117); Anion Gap 6 (5-15); BUN 14 mg/dL (7-18); BUN/Creat Ratio 17.9 RATIO (10-20); Calcium,Total 9.1 mg/dL (8.5-10.1); Chloride 106 mmol/L (98-107); Creatinine, Serum 0.78 mg/dL (0.55-1.02); EST Glomerular Filtration Rate 77 mL/min (>60); Est Glom Filt Rate - Afr Amer 93 mL/min (>60); Globulin 2.7 g/dL (2.2-4.2); Glucose 231 mg/dL (74-106); Magnesium 1.9 mg/dL (1.6-2.6); Potassium 4.1 mmol/L (3.5-5.1); Protein, Total 6.4 g/dL (6.4-8.2); Sodium Level 139 mmol/L (136-145); T4 Free Direct 1.19 ng/dL (0.76-1.46); Thyroid Stim Hormone (TSH) 1.51 uIU/mL (0.358-3.74)
[2023-02-08 15:46] LABS: Hemoglobin A1c 9.5 % (3.8-5.6)
== END | disposition home or self-care (01) ==
LOC: BIMLAB 10:41
PROVIDERS: PCP Family Medicine; Visit Provider Family Medicine
DX: E11.9 Type 2 diabetes mellitus without complications (principal); K58.9 Irritable bowel syndrome, unspecified
CPT/HCPCS: 36415; 80053; 83036; 83735; 84439; 84443; 85025

== ENCOUNTER → 2023-02-14 | Outpatient (CLI) | payer MEDICARE, OTHER, SELFPAY ==
[2023-02-14 12:31] LABS: Erythrocyte Sedimentation Rate 4 mm/hr (0-30)
[2023-02-14 12:33] LABS: Absolute Lymphocyte Count 1.52 X10^3/uL (0.83-4.51); Absolute Neutrophil Count 3.1 X10^3/uL (2.0-7.7); Basophil# 0.04 X10^3/uL; Basophil% 0.8 % (0-1); Eosinophil# 0.11 X10^3/uL; Eosinophils% 2.1 % (0-5); Hematocrit 44.7 % (37-47); Hemoglobin 14.6 g/dL (12.0-15.0); Lymphocyte # 1.52 X10^3/ul (0.83-4.51); Lymphocyte % 29.3 % (19-41); Mean Corp Hgb Conc 32.7 g/dL (32-36); Mean Corpuscular Hgb 28.5 pg (27.0-32.0); Mean Corpuscular Volume 87.1 fL (81-99); Mean Platelet Vol. 10.3 fl (6.2-12.0); Monocyte# 0.36 X10^3/uL; Monocyte% 6.9 % (0-10); NRBC Flagged by Analyzer 0 % (0-5); Neutrophil # 3.14 X10^3/uL (2.7-7.7); Neutrophil % 60.7 % (47-70); Platelet Count 220 K/mm3 (150-450); RBC Distribution Width CV 12.7 % (11.6-14.6); RBC Distribution Width SD 39.9 fl (35.1-43.9); Red Blood Count 5.13 M/mm3 (4.2-5.4); White Blood Count 5.2 K/mm3 (4.4-11.0)
[2023-02-14 13:07] LABS: ALB/GLOB Ratio 1.1 RATIO (0.9-2.4); AST(SGOT) 27 U/L (15-37); Alanine Aminotransfer ALT/SGPT 22 U/L (13-56); Albumin, Serum 3.7 g/dL (3.2-5.0); Alkaline Phosphatase 105 U/L (45-117); Anion Gap 5 (5-15); BUN 15 mg/dL (7-18); CRP < 2.90 mg/L (0.0-3.0); Chloride 106 mmol/L (98-107); Creatinine, Serum 0.75 mg/dL (0.55-1.02); EST Glomerular Filtration Rate 81 mL/min (>60); Est Glom Filt Rate - Afr Amer 98 mL/min (>60); Globulin 3.5 g/dL (2.2-4.2); Glucose 266 mg/dL (74-106); LDH 187 U/L (84-246); Potassium 4.8 mmol/L (3.5-5.1); Protein, Total 7.2 g/dL (6.4-8.2); Sodium Level 137 mmol/L (136-145)
[2023-02-15 13:08] LABS: Anti-Centromere B Ab <0.2 AI (0.0-0.9); Anti-Chromatin <0.2 AI (0.0-0.9); Anti-Jo <0.2 AI (0.0-0.9); Anti-Scleroderma-70 AB <0.2 AI (0.0-0.9); Anti-dsDNA Ab 5 IU/mL (0-9); RNP Ab 0.2 AI (0.0-0.9); SJOGREN'S Anti-SS-A test < 0.2 AI (0.0-0.9); SJOGREN'S Anti-SS-B test < 0.2 AI (0.0-0.9); Smith Ab <0.2 AI (0.0-0.9)
[2023-02-16 08:12] LABS: Endomysial Antibody IgA Negative (Negative); Immunoglobulin A 334 mg/dL (64-422); t-Transglutaminase IgA <2 U/mL (0-3)
[2023-02-20 00:07] LABS: Albumin 3.7 g/dL (2.9-4.4); Alpha-1-Globulins 0.3 g/dL (0.0-0.4); Alpha-2-Globulins 0.7 g/dL (0.4-1.0); Cytoplasmic Ab (C-ANCA) <1:20 titer (Neg:<1:20); Gamma Globulin 0.8 g/dL (0.4-1.8); Gastrin, Serum 16 pg/mL (0-115); Immunoglobulin A 329 mg/dL (64-422); Immunoglobulin E 18 IU/mL (6-495); Immunoglobulin G 731 mg/dL (586-1602); Immunoglobulin M 73 mg/dL (26-217); PROEL- TOTAL PROTEIN 6.6 g/dL (6.0-8.5); Perinuclear Ab (P-ANCA) <1:20 titer (Neg:<1:20)
[2023-02-20 21:07] LABS: Pancreatic Elastase, Fecal < 50 (>200)
[2023-02-23 00:07] LABS: Calprotectin, Stool 9 ug/g (0-120)
== END | disposition home or self-care (01) ==
PROVIDERS: PCP Family Medicine; Referring Provider Internal Medicine Gastroenterology; Visit Provider Internal Medicine Gastroenterology
DX: R19.5 Other fecal abnormalities (principal); E11.9 Type 2 diabetes mellitus without complications; K58.9 Irritable bowel syndrome, unspecified
CPT/HCPCS: 36415; 80053; 82653; 82784; 82785; 82941; 83516; 83615; 83630; 83993; 84165; 85025; 85652; 86140; 86225; 86235; 86255; 86256; 86334; 87177; 87209; 87329; 87493; 87506

== ENCOUNTER 2023-02-16 21:11 | Emergency (ER) | payer MEDICARE, OTHER, SELFPAY ==
[2023-02-16 21:12] VITALS: BP 172/8; PULSE 54; RESP 18; TEMP 36.3; O2SAT 98; BMI 32.0
--- NOTE | 2023-02-16 21:32 | EDS_ITS ---
HPI History of Present Illness Chief Complaint: Lower Extremity Injury Informant: patient Narrative Narrative: Patient presents with right foot and ankle pain. Patient states about 5 hours ago. She was pushing on a screen door to raise a glass panel. The screen door opened by accident and she fell forward. She rotated her right foot and ankle and has had pain in that area. She denies any other pain. No pain in knees hips. She did not fall and hit her head. No blood thinners. No other areas hurt. Pain is worse with weightbearing or palpation its better with rest and ice. Patient had Tylenol at home. I asked her if she wanted anything for pain here. She states she would prefer to just have an Aleve. She wanted nothing stronger so we will try that as she has tolerated it before. [facility] Medical History Anxiety Encounter for screening for COVID-19 Fracture, fibula Hyperlipemia Hypertension IBS (irritable bowel syndrome) Type 2 diabetes mellitus Home Medications aspirin 81 mg chewable tablet 81 mg PO QDAY heart health 12/26/17 [History Last Taken 01/12/18] calcium carb,cit ER 600 mg-vit D3 12.5 mcg (500 unit) tablet,ext.rel (Citracal- D3 Slow Release) 1 tab PO DAILY supplement 12/26/17 [History Last Taken 01/12/18] blood sugar diagnostic (FreeStyle Lite Strips) #100 ea 12/02/20 [Rx Last Taken Unknown] blood-glucose meter (FreeStyle [place] kit) #1 ea 12/02/20 [Rx Last Taken Unknown] flash glucose scanning reader (FreeStyle Tabatha 14 Day [place]) #1 ea 01/13/21 [Rx Last Taken Unknown] pen needle, diabetic 32 gauge x 1/4 (BD Ultra-Fine Micro Pen Needle) #100 ea 01/07/22 [Rx Last Taken Unknown] flash glucose sensor (FreeStyle [place] 14 Day Sensor kit) #4 ea 02/10/22 [Rx Last Taken Unknown] lisinopril 5 mg tablet 5 mg PO QDAY #90 tabs 05/25/22 [Rx Last Taken Unknown] albuterol sulfate 90 mcg/actuation aerosol inhaler (ProAir HFA) 1 - 2 puff inh alation Q6H PRN shortness of breath or wheezing #8.5 grams 06/22/22 [Rx Last Taken Unknown] insulin glargine 100 unit/mL (3 mL) subcutaneous pen (Lantus Solostar U-100 Insulin) 20 unit (0.2 mL) subcut QAM Diabetes mellitus type II, uncontrolled #15 mL 10/05/22 [Rx Last Taken Unknown] acetaminophen 325 mg capsule (Tylenol) 325 mg PO ONCE PRN 11/03/22 [History Last Taken Unknown] escitalopram oxalate 20 mg tablet 20 mg PO DAILY #90 tabs 11/03/22 [Rx Last Taken Unknown] simvastatin 20 mg tablet 20 mg PO DAILY #90 tabs 11/03/22 [Rx Last Taken Unknown] dicyclomine 20 mg tablet 20 mg PO BID #60 tabs 11/10/22 [Rx Last Taken Unknown] propranolol 20 mg tablet 20 mg PO BID 02/08/23 [History Last Taken Unknown] Allergy/AdvReac Type Severity Reaction Status Date / Time dapagliflozin [From [facility]] AdvReac Severe Shortness Verified 02/16/23 21:13 of breath Family History Mother Myocardial infarction, Onset Age: 76 Father Myocardial infarction, Onset Age: 57 Brother Myocardial infarction Cancer lung Sister Cancer cervical Surgical History History of appendectomy History of hernia repair History of partial hysterectomy History of prolapse of bladder History of tubal ligation Hx of bilateral cataract extraction Social History Smoking Status: Never smoker alcohol intake: never substance use type: does not use what type of physical activity do you participate in: none ROS ROS ED Constitutional Constitutional ED: Denies chills or fever(s) Cardiovascular Cardiovascular: Denies chest pain Respiratory/Chest Respiratory/Chest: Denies cough or dyspnea Gastrointestinal Gastrointestinal: Denies nausea or vomiting Musculoskeletal Musculoskeletal: Reports arthralgias; Denies back pain, myalgias or neck pain Integumentary Denies rash Neurologic Neurologic: Denies paresthesias or weakness Endocrine Endocrinology: Denies polydipsia or polyphagia Hematologic/Lymphatic Hematologic/Lymphatic: Denies easy bleeding or easy bruising EXAM Physical Exam Narrative Exam Narrative: Patient awake alert laying in bed no acute distress carries on normal conversation. HEENT shows no sign of trauma Neck is supple with free range of motion Cardiorespiratory shows easy unlabored breathing. Abdomen nontender. No back pain or tenderness. Extremity: There is obvious swelling of the lateral aspect of the right ankle and a little bit of swelling and contusion in that area and on the dorsal surface of the foot. Calcaneus is not tender. Achilles is intact by palpation and Saini test. No tenderness in the knee or proximal fibula. Sensation and capillary refill are intact. Const Vital Signs: 02/16/23 21:12 Temperature 97.4 F L Temperature Source Temporal Pulse Rate 54 L Respiratory Rate 18 Blood Pressure 172/8 H Blood Pressure Mean 62 Pulse Ox 98 Oxygen Delivery Method Room Air MDM MDM MDM Narrative Medical decision making narrative: My independent interpretation of the patient's three-view x-ray of the right foot shows some mild osteopenia but no fracture. Final reading by radiology is negative study. My independent interpretation of her three-view x-ray of her right ankle x-ray shows some soft tissue swelling that is present clinically but no sign of acute fracture or dislocation. Final reading by radiology is soft tissue swelling. No osseous abnormality. Patient will use ice elevation [id number] meds. She is comfortable with this. She will be placed in an Aircast. I did stressed the ankle and there does not appear to be any notable ligamentous laxity on exam at this time. We also discussed with the patient that if she still hurting in 1 to 2 weeks repeat imaging is appropriate. Radiography Diagnostic Testing: Clinical Impression(s) from Imaging Studies Ankle X-Ray 02/16/23 21:40 IMPRESSION: Soft tissue swelling. No osseous abnormality. Electronically Signed: Delaney Grady MD at 22:02 EDT Reading Location ID and State: [place] MD Tel , Service support , Foot X-Ray 02/16/23 21:40 IMPRESSION: Negative study. Electronically Signed: Delaney Grady MD at 22:04 EDT Reading Location ID and State: [place] Shepherd MD Tel , Service support , Discharge Plan Triage Chief Complaint: Lower Extremity Injury ED Provider: Dex Redding Dx/Rx/DC Orders Clinical Impression: Fall at home, Right ankle injury, Injury of foot, right Instructions: ED Ankle Sprain (Adult) Prescriptions: No Action aspirin 81 mg tablet,chewable 81 mg PO QDAY calcium carb,cit ER 600 mg calcium-vit D3 500 unit tablet,ext.release 600 mg calcium- 500 unit tablet extended release 1 tab PO DAILY (DME) FreeStyle Tabatha 14 Day [place] Misc See Rx Instructions .ROUTE .MEDSUPPLY Qty: 1 0RF Rx Instructions: As directed lisinopril 5 mg tablet 5 mg PO QDAY Qty: 90 2RF albuterol sulfate [ProAir HFA] 90 mcg/actuation HFA aerosol inhaler 1 - 2 puff inhalation Q6H PRN (Reason: shortness of breath or wheezing) Qty: 8.5 1RF acetaminophen [Tylenol] 325 mg capsule 325 mg PO ONCE PRN escitalopram oxalate 20 mg tablet 20 mg PO DAILY Qty: 90 3RF simvastatin 20 mg tablet 20 mg PO DAILY Qty: 90 2RF dicyclomine 20 mg tablet 20 mg PO BID Qty: 60 3RF propranolol 20 mg tablet 20 mg PO BID (DME) FreeStyle Lite Strips Strip See Rx Instructions .ROUTE .MEDSUPPLY Qty: 100 3RF Rx Instructions: check blood glucose daily for type 2 DM (DME) blood-glucose meter [FreeStyle [place]] Kit See Rx Instructions .ROUTE .MEDSUPPLY Qty: 1 1RF Rx Instructions: As directed (DME) pen needle, diabetic [BD Ultra-Fine Micro Pen Needle] 32 gauge x 1/4 needle See Rx Instructions .ROUTE .MEDSUPPLY Qty: 100 4RF Rx Instructions: As directed (DME) FreeStyle [place] 14 Day Sensor Kit See Rx Instructions .ROUTE .MEDSUPPLY Qty: 4 10RF Rx Instructions: Check blood surgar daily as directed Lantus Solostar U-100 Insulin 100 unit/mL (3 mL) insulin pen 20 unit subcut QAM Qty: 15 1RF Rx Instructions: ToSliding Scale: Increase 2 units if morning blood sugar greater than 160, decrease 2 units if morning blood sugar less than 100. Primary Care Provider: Garrick Benson Referrals: Garrick Benson, DO [Primary Care Provider] - 1 Week if not improving Disposition Disposition: Home, Self Care
--- NOTE | 2023-02-16 21:40 | RAD_ITS ---
INDICATION: Trauma EXAMINATION/TECHNIQUE: X-RAY - RIGHT XR Ankle Min 3 Views 4 VIEWS COMPARISON: FINDINGS: No acute fracture or dislocation. No destructive bone changes. Joint spaces are well-maintained. Normal alignment. Moderate lateral soft tissue swelling. No radiopaque foreign body or soft tissue gas. RAD/Ankle min 3 Views IMPRESSION: Soft tissue swelling. No osseous abnormality. Electronically Signed: Delaney Grady MD at 22:02 EDT Reading Location ID and State: [id number] / Tel , Service support ,
--- NOTE | 2023-02-16 21:40 | RAD_ITS ---
INDICATION: Trauma EXAMINATION/TECHNIQUE: X-RAY - RIGHT XR Foot Min 3 Views 3 VIEWS COMPARISON: FINDINGS: No acute fracture or dislocation. No destructive bone changes. Joint spaces are well-maintained. Normal alignment. Soft tissues are unremarkable. No radiopaque foreign body or soft tissue gas. RAD/Foot min 3 Views IMPRESSION: Negative study. Electronically Signed: Delaney Grady MD at 22:04 EDT Reading Location ID and State: [id number] / Tel , Service support ,
[2023-02-16] MEDS: Naproxen 250 MG Tablet PO (21:47)
[2023-02-16 22:45] VITALS: RESP 17; O2SAT 98
== END 2023-02-16 23:06 | disposition home or self-care (01) ==
PROVIDERS: Emergency Provider Emergency Medicine; PCP Family Medicine; Visit Provider Emergency Medicine
DX: S99.911A Unspecified injury of right ankle, initial encounter (principal); E11.9 Type 2 diabetes mellitus without complications; S99.921A Unspecified injury of right foot, initial encounter; I10 Essential (primary) hypertension; E78.5 Hyperlipidemia, unspecified; W17.89XA Other fall from one level to another, initial encounter; Z79.82 Long term (current) use of aspirin; Z79.899 Other long term (current) drug therapy; F41.9 Anxiety disorder, unspecified; Z90.49 Acquired absence of other specified parts of digestive tract; Z90.710 Acquired absence of both cervix and uterus; Z98.41 Cataract extraction status, right eye; Z98.42 Cataract extraction status, left eye
CPT/HCPCS: 73610; 73630; 99283

== ENCOUNTER → 2023-12-27 | Outpatient (CLI) | payer MEDICARE, OTHER, SELFPAY | END | disposition home or self-care (01) | LOC: SL 19:51 | PROVIDERS: PCP Family Medicine; Referring Provider Nurse Practitioner Acute Care; Visit Provider Nurse Practitioner Acute Care | DX: G47.33 Obstructive sleep apnea (adult) (pediatric) (principal) | CPT/HCPCS: 95810 ==

== ENCOUNTER → 2024-03-05 | Outpatient (CLI) | payer MEDICARE, OTHER, SELFPAY ==
[2024-03-05 12:25] LABS: Hemoglobin A1c 9.5 % (3.8-5.6)
[2024-03-05 12:27] LABS: AST(SGOT) 10 U/L (15-37); Alanine Aminotransfer ALT/SGPT 12 U/L (13-56); Albumin, Serum 3.8 g/dL (3.2-5.0); Alkaline Phosphatase 131 U/L (45-117); Anion Gap 8 (5-15); BUN 14 mg/dL (7-18); BUN/Creat Ratio 17.3 RATIO (10-20); Calcium,Total 9.1 mg/dL (8.5-10.1); Chloride 106 mmol/L (98-107); Cholesterol 148 mg/dL (200); Creatinine, Serum 0.81 mg/dL (0.55-1.02); EST Glomerular Filtration Rate 74 mL/min (>60); Est Glom Filt Rate - Afr Amer 89 mL/min (>60); Globulin 3.7 g/dL (2.2-4.2); Glucose 167 mg/dL (74-106); High Density Lipoprotein 53 mg/dL; Potassium 4.6 mmol/L (3.5-5.1); Protein, Total 7.5 g/dL (6.4-8.2); Sodium Level 140 mmol/L (136-145); Triglycerides 122 mg/dL; Very Low Density Lipoprotein 24 mg/dL (5-40)
== END | disposition home or self-care (01) ==
LOC: BIMLAB 10:49
PROVIDERS: PCP Family Medicine; Referring Provider Family Medicine; Visit Provider Family Medicine
DX: E11.9 Type 2 diabetes mellitus without complications (principal); E78.5 Hyperlipidemia, unspecified
CPT/HCPCS: 36415; 80053; 80061; 83036

== ENCOUNTER → 2025-04-29 | Outpatient (CLI) | payer MEDICARE, OTHER, SELFPAY ==
[2025-04-29 15:39] LABS: AST(SGOT) 20 U/L (<=31); Alanine Aminotransfer ALT/SGPT 8 U/L (<=34); Albumin, Serum 4.2 g/dL (3.4-4.8); Alkaline Phosphatase 102 U/L (35-104); Anion Gap 13 (5-15); BUN 12 mg/dL (4-19); BUN/Creat Ratio 13.0 RATIO (10-20); Calcium,Total 9.1 mg/dL (7.6-11.0); Carbon Dioxide 24.0 mmol/L (21.0-32.0); Chloride 103 mmol/L (98-108); Cholesterol 143 mg/dL (<=200); Globulin 2.7 g/dL (2.2-4.2); Glucose 205 mg/dL (70-99); Low Density Lipoprotein Calc. 70 mg/dL; Potassium 3.7 mmol/L (3.3-5.1); Triglycerides 140 mg/dL; Very Low Density Lipoprotein 28 mg/dL (5-40); cholesterol:hdl ratio screen 3.16
== END | disposition home or self-care (01) ==
LOC: BIMLAB 13:54
PROVIDERS: PCP Family Medicine; Visit Provider Family Medicine
DX: E11.9 Type 2 diabetes mellitus without complications (principal)
CPT/HCPCS: 36415; 80053; 80061